=== PATIENT | female | born 1990 | race Caucasian/White ===

== ENCOUNTER → 2020-10-05 10:42 | Outpatient (BNVA) | payer OTHER, SELFPAY | PROVIDERS: Visit Provider Advanced Practice Midwife ==

== ENCOUNTER → 2020-10-07 15:09 | Outpatient (BNVA) | payer OTHER, SELFPAY | PROVIDERS: Visit Provider Advanced Practice Midwife | DX: Z30.46 Encounter for surveillance of implantable subdermal contraceptive (principal); Z30.011 Encounter for initial prescription of contraceptive pills | CPT/HCPCS: 11982; 81025 ==

== ENCOUNTER → 2020-12-30 12:10 | Outpatient (BNVA) | payer OTHER, SELFPAY | PROVIDERS: Visit Provider Advanced Practice Midwife ==

== ENCOUNTER 2021-02-24 15:39 | Emergency (ER) | payer OTHER, SELFPAY ==
[2021-02-24 16:33] VITALS: BP 129/76; PULSE 69; RESP 18; TEMP 37.1; O2SAT 99; BMI 24.3
[2021-02-24 17:06] LABS: Glucose Urine UA NEG (NEG); Leukocyte Esterase Urine NEG (NEG); Nitrite Urine NEG (NEG); Specific Gravity - Urine 1.025 (1.005-1.025); Urine Blood 3+ (NEG); Urine Ketones 5 MG/DL (NEG); Urine Protein TRACE MG/DL (NEG-TRACE)
[2021-02-24 17:07] LABS: UPreg QC Valid YES; Urine Pregnancy NEGATIVE (NEGATIVE)
[2021-02-24 17:08] LABS: Appearance Urine CLEAR; Color Urine YELLOW
[2021-02-24 17:44] LABS: Bacteria Urine TRACE /LPF; Mucus Urine 2+ /LPF; RBC Urine 30-49 /HPF (0); WBC Urine 0-2 /HPF (0-4)
[2021-02-24 18:29] LABS: MANUAL DIFF FLAG NO
[2021-02-24 18:49] LABS: Basophils Percent Auto 0.3 % (0-2); Eosinophils Absolute Auto 0.1 X10*3/uL (0.0-0.4); Hematocrit 41.9 % (37-47); Imm Gran Abs Auto 0.02 X10*3/uL (0.00-0.03); Imm Gran Pct Auto 0.3 % (0.0-0.4); Lymphocytes Absolute Auto 1.9 X10*3/uL (1.2-4.9); Lymphocytes Percent Auto 30.2 % (20-40); Mean Corpuscular HGB Conc 33.4 g/dl (31.0-35.0); Mean Corpuscular Hemoglobin 31.7 pg (27.0-33.0); Mean Platelet Volume 10.3 fL (9.4-12.3); Monocytes Absolute Auto 0.4 X10*3/uL (0.1-1.2); Neutrophils Absolute Auto 3.9 X10*3/uL (2.0-8.3); Neutrophils Percent Auto 62.2 % (45-73); Platelet Count 284 X10*3/uL (160-400); Red Blood Count 4.41 X10*6/uL (4.20-5.50); Red Cell Distribution Width 11.7 % (11.0-16.0); White Blood Count 6.3 X10*3/uL (4.8-10.8)
[2021-02-24 19:03] LABS: Alanine Aminotransferase 14 U/L (0-31); Albumin Level 4.7 g/dL (3.5-5.0); Alkaline Phosphatase 89 U/L (39-117); Anion Gap 14 (12-20); Aspartate Amino Transferase 18 U/L (5-31); Bilirubin Total 0.6 mg/dL (0.0-1.0); Blood Urea Nitrogen 11 mg/dL (9-16); Calcium 10.1 mg/dL (8.4-10.2); Carbon Dioxide 24 mmol/L (22-29); Chloride 105 mmol/L (96-108); Creatinine Clr Calc Pharmacy 102.5; Estimated Glomerular Filt Rate > 60; Glucose Random 90 mg/dL (60-115); Potassium 4.2 mmol/L (3.3-5.1); Sodium 139 mmol/L (135-145); Total Protein 7.9 g/dL (6.5-8.0)
[2021-02-24 19:11] LABS: HCG Quantitative < 2 mIU/mL
--- NOTE | 2021-02-24 19:45 | ED.FEMALEGU ---
HPI - Female Genitourinary General Chief complaint: Vaginal Bleeding Stated complaint: vag bleed - cramping Time Seen by Provider: 02/24/21 18:07 Source: patient Mode of arrival: ambulatory Limitations: no limitations History of Present Illness HPI Narrative: 30-year-old female who has had 1 in her life her daughter is 8 years old now otherwise she denies any chronic medical problems not currently taking any medication she presents ambulatory via triage with complaint of vaginal bleeding. States 2 days ago she had a test at home that was positive and she was late for her menstrual cycle and today she started having cramping in the lower abdomen/pelvic area consistent with her menstrual cycle and noted bleeding today. Bleeding was typical as her midcycle there was no large clots. There is no abdominal pain or pelvic pain. There is no vaginal discharge, dysuria, rash. She denies any concern for STI. The bleeding is described as again 2 pads a day for the past 1 day and consistent with missed cycle. She states that the bleeding actually improving and there was minimal to no pain which is actually less than her usual menstrual cycle. MD elicited complaint: suspected Onset (ago): day(s) Severity: mild Female Urogenital Radiation: Non-Radiating Relieving factors: none Associated symptoms: denies other symptoms Treatment prior to arrival: none Sexual activity: Yes Possible : unsure if Related Data : 1 Para: 1 Total number of abortions (spontaneous and elective): 0 Previous Rx's Medication Instructions Recorded metronidazole 0.75 % vaginal gel 1 appful VAGINAL BID 5 Days #70 g 10/05/20 vitamin with calcium 1 tab PO DAILY #30 tab 12/30/20 no.72-iron 27 mg-folic acid 1 mg tablet Allergies Allergy/AdvReac Type Severity Reaction Status Date / Time latex [LATEX] Allergy Unknown RASH Verified 02/24/21 16:33 Review of Systems Review of Systems: Constitutional: No Weight loss, No Fever, No Chills, No Night Sweats, No Fatigue, No Malaise ENT/Mouth: No Hearing loss, No Ear Pain, No Nasal Congestion, No Sinus Pain, No Hoarseness, No sore throat, No Rhinorrhea, No Swallowing Difficulty Eyes: No Eye Pain, No Swelling, No Redness, No Foreign Body, No Discharge, No Vision Changes Cardiovascular: No Chest Pain, No SOB, No Dyspnea on Exertion, No Orthopnea, No Edema, No Palpitations Respiratory: No Cough, No Sputum, No Wheezing, No Smoke Exposure, No Dyspnea Gastrointestinal: No Nausea, No Vomiting, No Diarrhea, No Constipation, No abdominal Pain, No Hematochezia, No Melena Genitourinary: As noted per HPI, No Dysuria, No Urinary Frequency, No Hematuria, No Urinary Incontinence, No Urgency, No Flank Pain, No Urinary Flow Changes, No Hesitancy Musculoskeletal: No joint pain, No Myalgias, No Joint Swelling Skin: No Skin Lesions, No rash Neuro: No Weakness, No Numbness, No Paresthesias, No Loss of Consciousness, No Dizziness, No Headache Psych: No Social Issues Heme/Lymph: No Bruising, No Bleeding,No Lymphadenopathy Endocrine: No Polyuria, No Polydipsia, No Temperature Intolerance Yes all other systems are reviewed and are negative [facility] Past Medical History : 1 Para: 1 Total number of abortions (spontaneous and elective): 0 Family History Family History Paternal Grandmother History of breast cancer Colon cancer Social History Social History Alcohol intake: current Alcohol intake frequency: a few times a month Advance Directives: No Advance Directives Information Provided: No Patient : Yes Physical Exam Vital Signs: Vital Signs: Last Vital Signs Temp 98.7 F 02/24/21 16:33 Pulse 69 02/24/21 16:33 Resp 18 02/24/21 16:33 BP 129/76 02/24/21 16:33 Pulse Ox 99 02/24/21 16:33 Body Mass Index 24.3 Reviewed Const: General: cooperative and healthy appearing; No acute distress or intoxicated appearing Nutritional Appearance: average body habitus Orientation/consciousness: patient oriented x3 HENMT: Head: Yes normal to inspection Ears: hearing grossly normal bilaterally Eyes: General: appearance normal, both eyes and all related structures Visual Crabtree: normal visual crabtree by confrontation Neck: Neck: Yes normal visual inspection, No positive Brudzinski's sign, No positive Kernig's sign and No tender Thyroid: Thyroid normal Chest: Chest palpation & inspection: normal inspection of the chest Resp: Effort & Inspection: normal respiratory effort Auscultation: clear to auscultation bilaterally Cardio: Jugular venous distension: no JVD Rhythm: regular rhythm Heart sounds: S1 normal heart sound present and S2 normal heart sound present GI: Inspection: Yes normal to inspection Palpation (GI): Soft to palpation, nontender and no guarding Percussion: Yes normal to percussion Auscultation: normal bowel sounds : General: Yes no CVA tenderness Back/Spine/Pelvis: Back: no CVA tenderness Skin: General skin exam: no rashes or lesions noted Neuro: General: patient oriented x3 Extrem: General: Yes normal to inspection Course Reevaluation(s) Reevaluation #1: Patient showed me pictures her home dipstick test. There is a line for negative and a test line on the right side but there is no line in the Plus caitlin to indicate a positive . I believe she misinterpreted this. Either way she had labs done including a CBC that was unremarkable, comprehensive metabolic profile that was stable, urine that was negative. Urine HCG that was also negative. She states she does not have any pain and the bleeding is consistent with her menstrual cycle in fact minimal at this time. She deferred on pelvic exam. I educated her on the findings and she will repeat her home tests and 1 week and follow up closely with her primary care doctor. She is Rh O-positive MDM - Female Genitourinary Lab Data Result diagrams: 02/24/21 18:22 02/24/21 18:22 Labs: Lab Results 02/24/21 02/24/21 02/24/21 Range/Units 16:57 16:57 18:22 WBC (4.8-10.8) X10*3/uL RBC (4.20-5.50) X10*6/uL Hgb (12.0-16.0) g/dl Hct (37-47) % MCV (80-98) fL MCH (27.0-33.0) pg MCHC (31.0-35.0) g/dl RDW (11.0-16.0) % Plt Count (160-400) X10*3/uL MPV (9.4-12.3) fL Immature Gran % (Auto) (0.0-0.4) % Neut % (Auto) (45-73) % Lymph % (Auto) (20-40) % [place] % (Auto) (2-11) % Eos % (Auto) (0-4) % Baso % (Auto) (0-2) % Lymph # (Auto) (1.2-4.9) X10*3/uL [place] # (Auto) (0.1-1.2) X10*3/uL Eos # (Auto) (0.0-0.4) X10*3/uL Baso # (Auto) (0.0-0.2) X10*3/uL Abs Immat Gran (auto) (0.00-0.03) X10*3/uL Absolute Neuts (auto) (2.0-8.3) X10*3/uL Absolute Nucleated RBC (0.0-0.012) X10*3/uL Nucleated RBC % (auto) (0.0-0.2) /100WBC Sodium (135-145) mmol/L Potassium (3.3-5.1) mmol/L Chloride (96-108) mmol/L Carbon Dioxide (22-29) mmol/L Anion Gap (12-20) BUN (9-16) mg/dL Creatinine (0.5-1.4) mg/dL Estim Creat Clear Calc Estimated GFR Random Glucose (60-115) mg/dL Calcium (8.4-10.2) mg/dL Total Bilirubin (0.0-1.0) mg/dL AST (5-31) U/L ALT (0-31) U/L Alkaline Phosphatase (39-117) U/L Total Protein (6.5-8.0) g/dL Albumin (3.5-5.0) g/dL Beta HCG, Quant < 2 mIU/mL Urine Color YELLOW Urine Appearance CLEAR Urine pH 6.0 (5.0-8.0) Ur Specific [place] 1.025 (1.005-1.025) Urine Protein TRACE (NEG-TRACE) MG/DL Urine Glucose (UA) NEG (NEG) MG/DL Urine Ketones 5 (NEG) MG/DL Urine Blood 3+ H (NEG) Urine Nitrite NEG (NEG) Ur Leukocyte Esterase NEG (NEG) Urine RBC 30-49 H (0) /HPF Urine WBC 0-2 (0-4) /HPF Ur Squamous Epith Cells NONE /LPF Urine Bacteria TRACE /LPF Urine Mucus 2+ /LPF Urine Test NEGATIVE (NEGATIVE) Blood Type 02/24/21 02/24/21 02/24/21 Range/Units 18:22 18:22 18:22 WBC 6.3 (4.8-10.8) X10*3/uL RBC 4.41 (4.20-5.50) X10*6/uL Hgb 14.0 (12.0-16.0) g/dl Hct 41.9 (37-47) % MCV 95.0 (80-98) fL MCH 31.7 (27.0-33.0) pg MCHC 33.4 (31.0-35.0) g/dl RDW 11.7 (11.0-16.0) % Plt Count 284 (160-400) X10*3/uL MPV 10.3 (9.4-12.3) fL Immature Gran % (Auto) 0.3 (0.0-0.4) % Neut % (Auto) 62.2 (45-73) % Lymph % (Auto) 30.2 (20-40) % [place]ades % (Auto) 6.0 (2-11) % Eos % (Auto) 1.0 (0-4) % Baso % (Auto) 0.3 (0-2) % Lymph # (Auto) 1.9 (1.2-4.9) X10*3/uL [place] # (Auto) 0.4 (0.1-1.2) X10*3/uL Eos # (Auto) 0.1 (0.0-0.4) X10*3/uL Baso # (Auto) 0.0 (0.0-0.2) X10*3/uL Abs Immat Gran (auto) 0.02 (0.00-0.03) X10*3/uL Absolute Neuts (auto) 3.9 (2.0-8.3) X10*3/uL Absolute Nucleated RBC 0.000 (0.0-0.012) X10*3/uL Nucleated RBC % (auto) 0.0 (0.0-0.2) /100WBC Sodium 139 (135-145) mmol/L Potassium 4.2 (3.3-5.1) mmol/L Chloride 105 (96-108) mmol/L Carbon Dioxide 24 (22-29) mmol/L Anion Gap 14 (12-20) BUN 11 (9-16) mg/dL Creatinine 0.78 (0.5-1.4) mg/dL Estim Creat Clear Calc 102.5 Estimated GFR > 60 Random Glucose 90 (60-115) mg/dL Calcium 10.1 (8.4-10.2) mg/dL Total Bilirubin 0.6 (0.0-1.0) mg/dL AST 18 (5-31) U/L ALT 14 (0-31) U/L Alkaline Phosphatase 89 (39-117) U/L Total Protein 7.9 (6.5-8.0) g/dL Albumin 4.7 (3.5-5.0) g/dL Beta HCG, Quant mIU/mL Urine Color Urine Appearance Urine pH (5.0-8.0) Ur Specific [place] (1.005-1.025) Urine Protein (NEG-TRACE) MG/DL Urine Glucose (UA) (NEG) MG/DL Urine Ketones (NEG) MG/DL Urine Blood (NEG) Urine Nitrite (NEG) Ur Leukocyte Esterase (NEG) Urine RBC (0) /HPF Urine WBC (0-4) /HPF Ur Squamous Epith Cells /LPF Urine Bacteria /LPF Urine Mucus /LPF Urine Test (NEGATIVE) Blood Type O Positive Discharge Plan Discharge Clinical Impression: Dysfunctional uterine bleeding Patient Disposition: Home, Self-Care Instructions: Dysfunctional Uterine Bleeding (ED) Additional Instructions: Please repeat home test in 1 week Your urine test was negative Your blood test was also negative Please follow-up closely with her primary care doctor Return if any concerns or worsening symptoms Thank you Prescriptions: No Action metronidazole [Metrogel Vaginal] 0.75 % gel 1 appful vaginal BID 5 Days Qty: 70 RF: 0 Vitamin Plus Low Iron 27 mg iron- 1 mg tablet 1 tab PO DAILY Qty: 30 RF: 11 Referrals: Martinez Cole MD [Primary Care Provider] - 1 week
== END 2021-02-24 20:07 | disposition home or self-care (01) ==
PROVIDERS: Nurse Practitioner Primary Care; Emergency Provider Emergency Medicine; PCP Internal Medicine
DX: N93.8 Other specified abnormal uterine and vaginal bleeding (principal)
CPT/HCPCS: 36415; 80053; 81001; 81025; 84702; 85025; 86900; 86901; 99283; 99284

== ENCOUNTER 2021-03-08 14:34 | Outpatient (REF) | payer OTHER, SELFPAY ==
[2021-03-09 08:39] LABS: Syphilis Screen Nonreactive (Nonreactive)
[2021-03-09 12:33] LABS: CT PCR NOT DETECTED (Not Detect.); NG PCR NOT DETECTED (Not Detect.)
[2021-03-09 13:11] LABS: HIV AB/AG Nonreactive (Nonreactive); HIV Num 1 0.07 S/CO (0.00-0.99)
[2021-03-10 08:50] LABS: BV Int Neg Control Negative (Negative); BV Int Pos Control Positive (Positive)
[2021-03-10 11:39] LABS: HBsAGNum1 0.14 S/CO (0.00-0.99); Hepatitis B Surface Antigen Negative (Negative)
[2021-03-14 23:42] LABS: HPV 16 RNA NOT DETECTED (NOT DETECTED); HPV mRNA E6/E7 rflx Detected (Not Detected)
== END 2021-03-08 14:35 | disposition home or self-care (01) ==
LOC: HO.LAB 14:34
PROVIDERS: PCP Internal Medicine; Visit Provider Obstetrics & Gynecology
DX: Z01.419 Encounter for gynecological examination (general) (routine) without abnormal findings (principal); Z11.51 Encounter for screening for human papillomavirus (HPV); Z11.3 Encounter for screening for infections with a predominantly sexual mode of transmission; Z11.4 Encounter for screening for human immunodeficiency virus [HIV]; Z01.84 Encounter for antibody response examination
CPT/HCPCS: 36415; 86780; 87340; 87389; 87480; 87491; 87510; 87591; 87624; 87625; 87660; 88142

== ENCOUNTER 2021-04-04 08:49 | Outpatient (REF) | payer OTHER, SELFPAY | END 2021-04-04 08:50 | disposition home or self-care (01) | LOC: HO.LAB 08:49 | PROVIDERS: PCP Internal Medicine; Visit Provider Obstetrics & Gynecology | DX: R87.612 Low grade squamous intraepithelial lesion on cytologic smear of cervix (LGSIL) (principal) | CPT/HCPCS: 57454; 88305; 88341; 88342; 88360 ==

== ENCOUNTER 2021-04-07 14:46 | Outpatient (REF) | payer OTHER, SELFPAY ==
[2021-04-07 15:29] LABS: Influenza A PCR NEGATIVE (Negative); Influenza B PCR NEGATIVE (Negative); Resp Syncy Virus RNA Qual PCR NEGATIVE (Negative); SARS COV2 PCR INHOUSE NEGATIVE (Negative)
== END 2021-04-07 14:47 | disposition home or self-care (01) ==
LOC: HO.LNP 14:46
PROVIDERS: Visit Provider Internal Medicine
DX: J02.9 Acute pharyngitis, unspecified (principal); Z20.822 Contact with and (suspected) exposure to COVID-19
CPT/HCPCS: 0241U

== ENCOUNTER → 2021-04-19 11:33 | Outpatient (BNVA) | payer OTHER, SELFPAY | PROVIDERS: PCP Internal Medicine; Visit Provider Obstetrics & Gynecology ==

== ENCOUNTER 2021-06-20 18:53 | Emergency (ER) | payer OTHER, SELFPAY ==
[2021-06-20 19:03] VITALS: BP 128/79; PULSE 73; RESP 18; TEMP 36.6; O2SAT 98; BMI 19.3
[2021-06-20 19:13] VITALS: BP 140/90; PULSE 109; O2SAT 98
[2021-06-20] MEDS: Ibuprofen 600 MG TABLET PO (20:10)
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
[2021-06-20 20:22] LABS: Appearance Urine CLEAR; Color Urine YELLOW; Glucose Urine UA NEG (NEG); Leukocyte Esterase Urine NEG (NEG); Nitrite Urine NEG (NEG); UACC Culture Trigger NO; UPreg QC Valid YES; Urine Blood 3+ (NEG); Urine Ketones NEG (NEG); Urine Pregnancy NEGATIVE (NEGATIVE); Urine Protein NEG (NEG-TRACE)
[2021-06-20 20:31] LABS: Bacteria Urine TRACE /LPF; RBC Urine TNTC /HPF (0); WBC Urine 0-2 /HPF (0-4)
== END 2021-06-20 21:26 | disposition home or self-care (01) ==
PROVIDERS: Emergency Provider Emergency Medicine; PCP Internal Medicine
DX: S40.012A Contusion of left shoulder, initial encounter (principal); V43.52XA Car driver injured in collision with other type car in traffic accident, initial encounter; Y93.9 Activity, unspecified; Y92.410 Unspecified street and highway as the place of occurrence of the external cause; Y99.9 Unspecified external cause status; Z79.899 Other long term (current) drug therapy
CPT/HCPCS: 81001; 81025; 99283; 99284

== ENCOUNTER 2021-07-20 14:21 | Outpatient (REF) | payer OTHER, SELFPAY ==
[2021-07-20 15:37] LABS: Influenza A PCR NEGATIVE (Negative); Influenza B PCR NEGATIVE (Negative); Resp Syncy Virus RNA Qual PCR NEGATIVE (Negative); SARS COV2 PCR INHOUSE NEGATIVE (Negative)
== END 2021-07-20 14:22 | disposition home or self-care (01) ==
LOC: HO.LNP 14:21
PROVIDERS: Visit Provider Internal Medicine
DX: Z20.822 Contact with and (suspected) exposure to COVID-19 (principal); J02.9 Acute pharyngitis, unspecified; R50.9 Fever, unspecified
CPT/HCPCS: 0241U

== ENCOUNTER → 2021-11-11 14:59 | Outpatient (BNVA) | payer OTHER, SELFPAY | PROVIDERS: PCP Internal Medicine; Visit Provider Advanced Practice Midwife ==

== ENCOUNTER 2022-11-29 10:33 | Emergency (ER) | payer OTHER, SELFPAY ==
--- NOTE | ~2022-11-29 | CT_ITS ---
EXAMINATION: CT HEAD WITHOUT CONTRAST CLINICAL INFORMATION: Left-sided headache COMPARISON: None available. TECHNIQUE: Contiguous axial imaging was performed from the skull base to vertex without intravenous administration of contrast. Additional 2-D coronal and sagittal reformatted images are generated on the CT workstation and uploaded to PACS. This CT examination was performed using dose optimization techniques as appropriate, variously including the following: *Automated exposure control *Adjustment of mA and/or kV according to patient size (this includes techniques or standardized protocols for targeted exams where dose is matched to indication/reason for exam; i.e. extremities or head) *Use of iterative reconstruction technique DLP: 661 mGy-cm FINDINGS: There is no intracranial hemorrhage, hematoma, or extra-axial fluid collection. The ventricles are normal in size. There is no hydrocephalus, edema, or mass effect. The garcia-white matter differentiation appears well preserved . There is no visible acute territorial infarct or mass lesion. The calvarium appears intact. There is no pneumocephalus or orbital emphysema. The visualized sinuses and middle ears and mastoid air cells show no significant mucosal thickening. There are no air-fluid levels. CT/CT head/brain wo IV con IMPRESSION: No acute intracranial abnormality.
[2022-11-29 10:59] VITALS: BP 155/96; PULSE 70; RESP 16; TEMP 36.5; O2SAT 100; BMI 25.0
--- NOTE | 2022-11-29 11:00 | ED.HA ---
HPI - Headache General Chief Complaint: Headache <RIMA Acevedo - Last Filed: 11/29/22 11:04> Stated Complaint: L side headache <RIMA Acevedo Last Filed: 11/29/22 11:04> Time Seen by Provider: 11/29/22 11:46 <RIMA Acevedo Last Filed: 11/29/22 11:04> Source: patient <RIMA Church Last Filed: 11/29/22 16:55> Mode of arrival: ambulatory <RIMA Church Last Filed: 11/29/22 16:55> Limitations: no limitations <RIMA Church Last Filed: 11/29/22 16:55> History of Present Illness HPI Narrative: Patient is a 32 year old assigned female at with a history of migraine presenting to the emergency department today with a severe left sided headache. Patient states that she woke up around 0130 with a left sided temporal headache which feels like her normal migraine for which she took 2 Excedrin and went back to sleep. Patient woke up this morning and started to have worsening symptoms with left sided facial pain, pain behind the left eye, pain in her gums, feeling like she is floating upon ambulation, and mild SOB which has now resolved. Patient denies any current dizziness, lightheadedness, abdominal pain, nausea, vomiting, fever, chills, blurry vision, double vision, loss of vision, chest pain, back pain, night sweats, pain with urination, increased urinary frequency, increased urinary urgency, blood in her urine or stool, syncope or a near syncopal episode, recent trauma or falls, bowel incontinence, bladder incontinence, bowel retention, bladder retention, or any other complaints at this time. <RIMA Church Last Filed: 11/29/22 16:55> MD elicited complaint: headache and migraine <RIMA Church Last Filed: 11/29/22 16:55> Pertinent past history: migraines <RIMA Church Last Filed: 11/29/22 16:55> Onset (ago): hour(s) <RIMA Church Last Filed: 11/29/22 16:55> Time: 01:30 <RIMA Church - Last Filed: 11/29/22 16:55> Onset description: suddenly <IRMA Church - Last Filed: 11/29/22 16:55> Location: left <RIMA Church - Last Filed: 11/29/22 16:55> Severity: moderate <RIMA Church - Last Filed: 11/29/22 16:55> Quality & Timing: sharp <RIMA Church - Last Filed: 11/29/22 16:55> Associated symptoms: nausea <RIMA Church - Last Filed: 11/29/22 16:55> Treatments prior to arrival: other (Excedrin) <RIMA Church - Last Filed: 11/29/22 16:55> Related Data Home Medications: Previous Rx's Medication Instructions Recorded desogestrel-e.estradiol 0.15 1 tab PO DAILY #28 tabs 11/11/21 mg-0.02 mg(21)/e.estrad 0.01 mg(5) tablet (Kariva (28)) <RIMA Acevedo - Last Filed: 11/29/22 11:04> Allergies/Adverse Reactions: Allergies Allergy/AdvReac Type Severity Reaction Status Date / Time latex [LATEX] Allergy Unknown RASH Verified 11/11/21 15:00 <RIMA Acevedo - Last Filed: 11/29/22 11:04> Review of Systems Review of Systems: Yes all other systems are reviewed and are negative <RIMA Church - Last Filed: 11/29/22 16:55> Constitutional: Constitutional: Reports no additional constitutional complaints and Reports headache(s) <RIMA Church - Last Filed: 11/29/22 16:55> Eyes: Eyes: Reports no additional eye complaints and Denies loss of vision <RIMA Church - Last Filed: 11/29/22 16:55> ENT: Reports system reviewed and no additional complaints, except as documented, Reports Normal hearing present, Denies dizziness and Reports headache(s) <RIMA Church - Last Filed: 11/29/22 16:55> Cardiovascular: Cardiovascular: Reports no additional cardiovascular complaints and Denies syncope <RIMA Church - Last Filed: 11/29/22 16:55> Respiratory: Respiratory: Reports as per HPI <RIMA Church - Last Filed: 11/29/22 16:55> Gastrointestinal: Gastrointestinal: Reports no additional gastrointestinal complaints and Reports nausea <RIMA Church - Last Filed: 11/29/22 16:55> Genitourinary: Genitourinary: Reports no additional female genitourinary complaints <RIMA Church - Last Filed: 11/29/22 16:55> Musculoskeletal: Musculoskeletal: Reports no additional musculoskeletal complaints, Denies abnormal gait and Denies numbness <RIMA Church - Last Filed: 11/29/22 16:55> Neurologic: Reports as per HPI, Reports Normal hearing present, Denies Neuro-related abnormal movements, Denies Abnormal speech present, Denies abnormal gait, Denies dizziness, Denies syncope, Reports headache(s), Denies loss of vision and Denies numbness <RIMA Church - Last Filed: 11/29/22 16:55> PMF Past Medical History Attestation statement: The following information was validated with the patient. <RIMA Church - Last Filed: 11/29/22 16:55> Source: old records reviewed and nursing notes reviewed <RIMA Church - Last Filed: 11/29/22 16:55> Medical History: Medical History Well woman exam with routine gynecological exam <RIMA Acevedo - Last Filed: 11/29/22 11:04> Family History Family History: Family History Paternal Grandmother History of breast cancer Colon cancer <RIMA Acevedo - Last Filed: 11/29/22 11:04> Social History Social History: Social History Alcohol intake: current Alcohol intake frequency: a few times a month Patient Tobacco Use Status: Never used Tobacco Advance Directives: No Advance Directives Information Provided: No <RIMA Acevedo - Last Filed: 11/29/22 11:04> Physical Exam Vital Signs: Vital Signs: Last Vital Signs Temp 98.5 F 11/29/22 13:29 Pulse 62 11/29/22 13:29 Resp 18 11/29/22 13:29 BP 116/64 11/29/22 13:29 Pulse Ox 98 11/29/22 13:29 O2 Del Method Room Air 11/29/22 13:29 BMI result Body Mass Index 25.0 <RIMA Acevedo - Last Filed: 11/29/22 11:04> Vital Signs: Last Vital Signs Temp 98.5 F 11/29/22 13:29 Pulse 62 11/29/22 13:29 Resp 18 11/29/22 13:29 BP 116/64 11/29/22 13:29 Pulse Ox 98 11/29/22 13:29 O2 Del Method Room Air 11/29/22 13:29 BMI result Body Mass Index 25.0 <RIMA Church - Last Filed: 11/29/22 16:55> Const: General: cooperative, healthy appearing and no acute distress <RIMA Church - Last Filed: 11/29/22 16:55> Nutritional Appearance: average body habitus <RIMA Church - Last Filed: 11/29/22 16:55> Orientation/consciousness: oriented to person, oriented to place, oriented to time and patient oriented x3 <RIMA Church - Last Filed: 11/29/22 16:55> Limitations: no limitations <RIMA Church - Last Filed: 11/29/22 16:55> HEENT: Head: Yes normal to inspection <RIMA Church - Last Filed: 11/29/22 16:55> Ears: hearing grossly normal bilaterally <RIMA Church - Last Filed: 11/29/22 16:55> General nose exam: Normal external nose present <RIMA Church - Last Filed: 11/29/22 16:55> Face and sinus: Yes normal facial exam <RIMA Church - Last Filed: 11/29/22 16:55> Mouth: Normal oral and palatal mucosa present, no drooling and no muffled voice <RIMA Church - Last Filed: 11/29/22 16:55> Eyes: General: appearance normal, both eyes and all related structures <Nina Gibson [place] - Last Filed: 11/29/22 16:55> Periorbital: periorbital findings normal <Nina GibsonRIMA - Last Filed: 11/29/22 16:55> Eyelids: Yes eyelids normal <Nina Gibson [place] - Last Filed: 11/29/22 16:55> Conjunctivae: conjunctivae normal <Nina Quintanashun [place] - Last Filed: 11/29/22 16:55> Pupils: Equal, round and reactive pupils present <Nina [place]an[place]un [place] - Last Filed: 11/29/22 16:55> EOM: EOMs intact bilaterally <Nina [place]an[place]un [place] - Last Filed: 11/29/22 16:55> Neck: Neck: Yes normal visual inspection and Yes full ROM <Nina [place]an[place]un [place] - Last Filed: 11/29/22 16:55> Chest: Chest palpation & inspection: normal inspection of the chest <Ninatino QuintanaRIMA hoffmann - Last Filed: 11/29/22 16:55> Resp: Effort & Inspection: normal respiratory effort <Nina Quintanashun [place] - Last Filed: 11/29/22 16:55> Auscultation: clear to auscultation bilaterally <Nina [place]an[place]un [place] - Last Filed: 11/29/22 16:55> Cardio: Rate: regular rate <Nina [place]an[place]un [place] - Last Filed: 11/29/22 16:55> Rhythm: regular rhythm (Accelerated beats upon inhalation) <Nina Quintan[place]un [place] - Last Filed: 11/29/22 16:55> GI: Inspection: Yes normal to inspection <Nina [place]an[place]un [place] - Last Filed: 11/29/22 16:55> Neuro: General: oriented to person, oriented to place, oriented to time and patient oriented x3 <Nina Quintan[place]un [place] - Last Filed: 11/29/22 16:55> Cranial nerves: Yes Equal, round and reactive pupils present and Yes Normal hearing present <Nina QuintanaRIMA hoffmann - Last Filed: 11/29/22 16:55> Cognition (Neuro): normal cognition <Nina RIMA Gibson - Last Filed: 11/29/22 16:55> Speech: No Abnormal speech present <Nina RIMA Gibson - Last Filed: 11/29/22 16:55> Motor exam (neuro): 5/5 motor strength present throughout <Ninatino QuintanaRIMA hoffmann - Last Filed: 11/29/22 16:55> Sensory Exam: Normal double simultaneous stimulation for sensation <Ninatino QuintanaRIMA hoffmann - Last Filed: 11/29/22 16:55> Coordination: [id number] test normal <RIMA Church - Last Filed: 11/29/22 16:55> Extrem: General: Yes normal to inspection, Yes full ROM and Yes capillary refill normal <Ninatino QuintanaRIMA hoffmann - Last Filed: 11/29/22 16:55> Psych: Appearance: grossly normal <RIMA Church - Last Filed: 11/29/22 16:55> Mental Status: mental status grossly normal <RIMA Church - Last Filed: 11/29/22 16:55> Affect: normal affect <RIMA Church - Last Filed: 11/29/22 16:55> Attitude: cooperative <RIMA Church - Last Filed: 11/29/22 16:55> Thought process: Normal thought process present <RIMA Church - Last Filed: 11/29/22 16:55> Thought content: Normal thought content present <RIMA Church - Last Filed: 11/29/22 16:55> Insight: Good insight present (Psych) <RIMA Church - Last Filed: 11/29/22 16:55> Course Course Course Narrative: RME - 32 y/o female with history of migraines presents to the ER for severe left sided headache and dizziness that started at 1:30am. Worse and different than her usual headaches. No relief with Excedrin. Would like a CT scan of her head. BP 150s in triage, she states her usual BP is in the 80s. Neuros grossly intact, normal speech. Tearful. Labs, CT head orderd along with IV medications for migraine. <RIMA Acevedo - Last Filed: 11/29/22 11:04> Medications Administered Discontinued Medications Generic Name Dose Route Start Last Admin Trade Name Freq PRN Reason Stop Dose Admin Diphenhydramine HCl 50 mg 11/29/22 11:03 11/29/22 11:23 Diphenhydramine Hcl 50 Mg/Ml Vial IVPUSH 11/29/22 11:04 50 mg ONCE ONE Administration Sodium Chloride 1,000 mls @ 999 mls/hr 11/29/22 11:30 11/29/22 11:28 Ns IV 11/29/22 12:30 Not Given .Q1H1M BOBBI Sodium Chloride 1,000 mls @ 999 mls/hr 11/29/22 11:30 11/29/22 13:02 Ns IVCONT 11/29/22 12:30 Infused .Q1H1M BOBBI Infusion Ketorolac Tromethamine 30 mg 11/29/22 11:03 11/29/22 11:23 Ketorolac Tromethamine 30 Mg/Ml Vial IVPUSH 11/29/22 11:04 30 mg ONCE ONE Administration Metoclopramide HCl 10 mg 11/29/22 11:03 11/29/22 11:23 Metoclopramide Hcl 10 Mg/2 Ml Vial IVPUSH 11/29/22 11:04 10 mg ONCE ONE Administration <RIMA Acevedo - Last Filed: 11/29/22 11:04> Medications Administered Discontinued Medications Generic Name Dose Route Start Last Admin Trade Name Freq PRN Reason Stop Dose Admin Diphenhydramine HCl 50 mg 11/29/22 11:03 11/29/22 11:23 Diphenhydramine Hcl 50 Mg/Ml Vial IVPUSH 11/29/22 11:04 50 mg ONCE ONE Administration Sodium Chloride 1,000 mls @ 999 mls/hr 11/29/22 11:30 11/29/22 11:28 Ns IV 11/29/22 12:30 Not Given .Q1H1M BOBBI Sodium Chloride 1,000 mls @ 999 mls/hr 11/29/22 11:30 11/29/22 13:02 Ns IVCONT 11/29/22 12:30 Infused .Q1H1M BOBBI Infusion Ketorolac Tromethamine 30 mg 11/29/22 11:03 11/29/22 11:23 Ketorolac Tromethamine 30 Mg/Ml Vial IVPUSH 11/29/22 11:04 30 mg ONCE ONE Administration Metoclopramide HCl 10 mg 11/29/22 11:03 11/29/22 11:23 Metoclopramide Hcl 10 Mg/2 Ml Vial IVPUSH 11/29/22 11:04 10 mg ONCE ONE Administration <RIMA Church - Last Filed: 11/29/22 16:55> Medical Decision Making Medical Decision Making MDM Narrative: Patient is a 32 year old assigned female at with a history of migraines presenting to the emergency department today with a left sided headache. Patient's physical exam was unremarkable. Patient's blood work was unremarkable. I explained my physical exam findings as well as all test results to the patient. I answered all questions asked by the patient. Patient received IV Fluid, Benadryl, and toradol which she stated helped her symptoms significantly. I stressed the importance of the patient taking her medication as prescribed. I stressed the importance of the patient following up with her primary care provider and a neurologist. I stressed the importance of the patient returning to the emergency department immediately if her symptoms were to worsen or if she were to develop any dizziness, shortness of breath, difficulty breathing, chest pain, blurry vision, loss of vision, nausea, vomiting, abdominal pain, fever, chills, back pain, or any other complaints. Patient verbalized agreement and understanding with this treatment plan and discharge. <RIMA Church - Last Filed: 11/29/22 16:55> Differential Diagnosis Differential Diagnoses: The differential diagnosis associated with the presentation includes <RIMA Church - Last Filed: 11/29/22 16:55> migraine <RIMA Church - Last Filed: 11/29/22 16:55> Lab Data MDM Lab Attestation statement: I reviewed the patient's lab results. <RIMA Church - Last Filed: 11/29/22 16:55> Result Diagrams: 11/29/22 11:22 11/29/22 11:22 <RIMA Acevedo - Last Filed: 11/29/22 11:04> Labs: Lab Results 11/29/22 11/29/22 Range/Units 11:22 11:22 WBC 4.4 L (4.8-10.8) X10*3/uL RBC 4.31 (4.20-5.50) X10*6/uL Hgb 12.1 (12.0-16.0) g/dl Hct 38.6 (37.0-47.0) % MCV 89.6 (80.0-98.0) fL MCH 28.1 (27.0-33.0) pg MCHC 31.3 (31.0-35.0) g/dl RDW 13.1 (11.0-16.0) % Plt Count 325 (160-400) X10*3/uL MPV 10.4 (9.4-12.3) fL Immature Gran % (Auto) 0.2 (0.0-0.4) % Neut % (Auto) 57.1 (45-73) % Lymph % (Auto) 33.1 (20-40) % [place] % (Auto) 8.4 (2-11) % Eos % (Auto) 0.5 (0-4) % Baso % (Auto) 0.7 (0-2) % Lymph # (Auto) 1.5 (1.2-4.9) X10*3/uL [place] # (Auto) 0.4 (0.1-1.2) X10*3/uL Eos # (Auto) 0.0 (0.0-0.4) X10*3/uL Baso # (Auto) 0.0 (0.0-0.2) X10*3/uL Abs Immat Gran (auto) 0.01 (0.00-0.03) X10*3/uL Absolute Neuts (auto) 2.5 (2.0-8.3) x10*3/uL Absolute Nucleated RBC 0.000 (0.0-0.012) X10*3/uL Nucleated RBC % (auto) 0.0 (0.0-0.2) /100WBC Sodium 139 (135-145) mmol/L Potassium 4.3 (3.3-5.1) mmol/L Chloride 105 (96-108) mmol/L Carbon Dioxide 26 (22-29) mmol/L Anion Gap 12 (12-20) BUN 9 (9-16) mg/dL Creatinine 0.81 (0.5-1.4) mg/dL Estim Creat Clear Calc 96.9 Estimated GFR > 60 Random Glucose 91 (60-115) mg/dL Calcium 9.7 (8.4-10.2) mg/dL Magnesium 2.0 (1.6-2.6) mg/dL Total Bilirubin 0.7 (0.0-1.0) mg/dL Direct Bilirubin 0.2 (0.0-0.5) mg/dL AST 29 (5-31) U/L ALT 31 (0-31) U/L Alkaline Phosphatase 110 (39-117) U/L Total Protein 7.4 (6.5-8.0) g/dL Albumin 4.5 (3.5-5.0) g/dL <RIMA Acevedo - Last Filed: 11/29/22 11:04> Lab Results 11/29/22 11/29/22 Range/Units 11:22 11:22 WBC 4.4 L (4.8-10.8) X10*3/uL RBC 4.31 (4.20-5.50) X10*6/uL Hgb 12.1 (12.0-16.0) g/dl Hct 38.6 (37.0-47.0) % MCV 89.6 (80.0-98.0) fL MCH 28.1 (27.0-33.0) pg MCHC 31.3 (31.0-35.0) g/dl RDW 13.1 (11.0-16.0) % Plt Count 325 (160-400) X10*3/uL MPV 10.4 (9.4-12.3) fL Immature Gran % (Auto) 0.2 (0.0-0.4) % Neut % (Auto) 57.1 (45-73) % Lymph % (Auto) 33.1 (20-40) % [place] % (Auto) 8.4 (2-11) % Eos % (Auto) 0.5 (0-4) % Baso % (Auto) 0.7 (0-2) % Lymph # (Auto) 1.5 (1.2-4.9) X10*3/uL [place] # (Auto) 0.4 (0.1-1.2) X10*3/uL Eos # (Auto) 0.0 (0.0-0.4) X10*3/uL Baso # (Auto) 0.0 (0.0-0.2) X10*3/uL Abs Immat Gran (auto) 0.01 (0.00-0.03) X10*3/uL Absolute Neuts (auto) 2.5 (2.0-8.3) x10*3/uL Absolute Nucleated RBC 0.000 (0.0-0.012) X10*3/uL Nucleated RBC % (auto) 0.0 (0.0-0.2) /100WBC Sodium 139 (135-145) mmol/L Potassium 4.3 (3.3-5.1) mmol/L Chloride 105 (96-108) mmol/L Carbon Dioxide 26 (22-29) mmol/L Anion Gap 12 (12-20) BUN 9 (9-16) mg/dL Creatinine 0.81 (0.5-1.4) mg/dL Estim Creat Clear Calc 96.9 Estimated GFR > 60 Random Glucose 91 (60-115) mg/dL Calcium 9.7 (8.4-10.2) mg/dL Magnesium 2.0 (1.6-2.6) mg/dL Total Bilirubin 0.7 (0.0-1.0) mg/dL Direct Bilirubin 0.2 (0.0-0.5) mg/dL AST 29 (5-31) U/L ALT 31 (0-31) U/L Alkaline Phosphatase 110 (39-117) U/L Total Protein 7.4 (6.5-8.0) g/dL Albumin 4.5 (3.5-5.0) g/dL <RIMA Church - Last Filed: 11/29/22 16:55> Independent Interpretation I performed an independent interpretation of an: CT Scan <RIMA Church - Last Filed: 11/29/22 16:55> Interpretation: My interpretation is in agreement with the radiologist's impression of this imaging study. EXAMINATION: CT HEAD WITHOUT CONTRAST CLINICAL INFORMATION: Left-sided headache? COMPARISON: None available.? TECHNIQUE: Contiguous axial imaging was performed from the skull base to vertex without intravenous administration of contrast.? Additional 2-D coronal and sagittal reformatted images are generated on the CT workstation and uploaded to PACS. This CT examination was performed using dose optimization techniques as appropriate, variously including the following: *Automated exposure control *Adjustment of mA and/or kV according to patient size (this includes techniques or standardized protocols for targeted exams where dose is matched to indication/reason for exam; i.e. extremities or head) *Use of iterative reconstruction technique DLP: 661 mGy-cm FINDINGS: There is no intracranial hemorrhage, hematoma, or extra-axial fluid collection.? The ventricles are normal in size. There is no hydrocephalus, edema, or mass effect.? The garcia-white matter differentiation appears well preserved . There is no visible acute territorial infarct or mass lesion. The calvarium appears intact. There is no pneumocephalus or orbital emphysema.? The visualized sinuses and middle ears and mastoid air cells show no significant mucosal thickening. There are no air-fluid levels. CT/CT head/brain wo IV con IMPRESSION: No acute intracranial abnormality. Dictated By: Zeus Bracnh MD Signed By: Electronically signed by Zeus Branch MD 11/29/22 1222 <RIMA Church - Last Filed: 11/29/22 16:55> Discharge Plan Discharge Clinical Impression: Migraine <RIMA Acevedo - Last Filed: 11/29/22 11:04> Patient Disposition: Home, Self-Care <RIMA Acevedo Last Filed: 11/29/22 11:04> Instructions: Migraine Headache (ED) <RIMA Acevedo Last Filed: 11/29/22 11:04> Additional Instructions: Follow up with your primary care provider and a neurologist. Return to the emergency department immediately if your symptoms worsen or if you develop any dizziness, shortness of breath, difficulty breathing, chest pain, blurry vision, loss of vision, nausea, vomiting, abdominal pain, fever, chills, back pain, or any other complaints. <RIMA Acevedo Last Filed: 11/29/22 11:04> Prescriptions: No Action desog-e.estradiol/e.estradiol [Kariva (28)] 0.15-0.02 mgx21 /0.01 mg x 5 tablet 1 tab PO DAILY Qty: 28 4RF <RIMA Acevedo - Last Filed: 11/29/22 11:04> Referrals: [facility] [place] [facility] [Provider Group] (Call to establish and follow up with a neurologist.) Martinez Cole MD [Primary Care Provider] - <RIMA Acevedo - Last Filed: 11/29/22 11:04> Stand Alone Forms: Work/School Release <RIMA Acevedo - Last Filed: 11/29/22 11:04> Interventions: ED Discharge Assessment Last Done: 11/29/22 13:30 <RIMA Acevedo - Last Filed: 11/29/22 11:04> Discharge Date/Time: 11/29/22 13:36 <RIMA Acevedo - Last Filed: 11/29/22 11:04> Print Language: Sudanese <RIMA Acevedo - Last Filed: 11/29/22 11:04>
--- NOTE | 2022-11-29 11:12 | PC.NURSE ---
Patient with complaint of headache keeps clearing throat says it feels like she is choking managing secretion no stridor noted denies any recent ingestion of unknown allergens or exposure to any environmental allergens. AOx 4 ambulatory independently no distress noted patient to CT will CTM
[2022-11-29] MEDS: Ketorolac Tromethamine 30 MG/ML VIAL IVPUSH (11:23)
[2022-11-29] MEDS: diphenhydrAMINE HCL 50 MG/ML VIAL IVPUSH (11:23)
[2022-11-29] MEDS: Metoclopramide HCl 10 MG/2 ML VIAL IVPUSH (11:23)
[2022-11-29] MEDS: 0.9 % Sodium Chloride 1,000 ML 999 ML IVCONT (11:29)
[2022-11-29 11:37] LABS: MANUAL DIFF FLAG NO
[2022-11-29 11:41] LABS: Basophils Percent Auto 0.7 % (0-2); Eosinophils Percent Auto 0.5 % (0-4); Hematocrit 38.6 % (37.0-47.0); Hemoglobin 12.1 g/dl (12.0-16.0); Imm Gran Abs Auto 0.01 X10*3/uL (0.00-0.03); Imm Gran Pct Auto 0.2 % (0.0-0.4); Lymphocytes Absolute Auto 1.5 X10*3/uL (1.2-4.9); Lymphocytes Percent Auto 33.1 % (20-40); Mean Corpuscular HGB Conc 31.3 g/dl (31.0-35.0); Mean Corpuscular Hemoglobin 28.1 pg (27.0-33.0); Mean Corpuscular Volume 89.6 fL (80.0-98.0); Mean Platelet Volume 10.4 fL (9.4-12.3); Monocytes Absolute Auto 0.4 X10*3/uL (0.1-1.2); Monocytes Percent Auto 8.4 % (2-11); Neutrophils Absolute Auto 2.5 x10*3/uL (2.0-8.3); Neutrophils Percent Auto 57.1 % (45-73); Platelet Count 325 X10*3/uL (160-400); Red Blood Count 4.31 X10*6/uL (4.20-5.50); Red Cell Distribution Width 13.1 % (11.0-16.0); White Blood Count 4.4 X10*3/uL (4.8-10.8)
--- NOTE | 2022-11-29 11:41 | PC.NURSE ---
Patient extremely anxious tearful mother at bedside tolerating IVF will CTM
[2022-11-29 11:54] LABS: Alanine Aminotransferase 31 U/L (0-31); Albumin Level 4.5 g/dL (3.5-5.0); Alkaline Phosphatase 110 U/L (39-117); Anion Gap 12 (12-20); Aspartate Amino Transferase 29 U/L (5-31); Bilirubin Direct 0.2 mg/dL (0.0-0.5); Bilirubin Total 0.7 mg/dL (0.0-1.0); Blood Urea Nitrogen 9 mg/dL (9-16); Calcium 9.7 mg/dL (8.4-10.2); Carbon Dioxide 26 mmol/L (22-29); Chloride 105 mmol/L (96-108); Creatinine Clr Calc Pharmacy 96.9; Estimated Glomerular Filt Rate > 60; Glucose Random 91 mg/dL (60-115); Potassium 4.3 mmol/L (3.3-5.1); Sodium 139 mmol/L (135-145); Total Protein 7.4 g/dL (6.5-8.0)
--- NOTE | 2022-11-29 11:58 | ECG_ITS ---
Test Reason : dizzy Blood Pressure : / mmHG Vent. Rate : 083 BPM Atrial Rate : 083 BPM P-R Int : 136 ms QRS Dur : 076 ms QT Int : 376 ms P-R-T Axes : 060 064 051 degrees QTc Int : 441 ms Normal sinus rhythm with sinus arrhythmia Normal ECG When compared with ECG of 24-SEP-2017 17:11, No significant change was found Referred By: Nina Gibson Electronically Signed By:AVELINA MOSLEY
--- NOTE | 2022-11-29 12:11 | PC.NURSE ---
PAtietn sleeping easily aroused patient and mother report improved symptoms
--- NOTE | 2022-11-29 13:19 | PC.NURSE ---
Patient up ambulatory to bathroom with mother no distress noted
[2022-11-29 13:29] VITALS: BP 116/64; PULSE 62; RESP 18; TEMP 36.9; O2SAT 98
== END 2022-11-29 13:36 | disposition home or self-care (01) ==
PROVIDERS: Physician Assistant; Emergency Provider Emergency Medicine; PCP Internal Medicine
DX: G43.909 Migraine, unspecified, not intractable, without status migrainosus (principal); R42 Dizziness and giddiness; Z79.899 Other long term (current) drug therapy
CPT/HCPCS: 36415; 70450; 80048; 80076; 83735; 85025; 93005; 96361; 96374; 96375; 99284; J1200; J1885; J2765

== ENCOUNTER 2022-12-04 15:45 | Outpatient (REF) | payer OTHER, SELFPAY ==
[2022-12-04 18:20] LABS: Erythrocyte Sedimentation Rate 20 MM/HR (0-20)
[2022-12-04 18:42] LABS: C Reactive Protein < 0.10 mg/dL (< or = 0.50)
[2022-12-04 18:56] LABS: Folate 11.8 ng/mL (> or = 4.0); Free T4 (Free Thyroxine) 0.88 ng/dL (0.71-1.85); Vitamin B12 299 pg/mL (200-900)
[2022-12-04 20:22] LABS: Thyroid Stimulating Hormone 3.35 uIU/mL (0.32-4.0)
== END 2022-12-04 15:46 | disposition home or self-care (01) ==
LOC: HO.LAB 15:45
PROVIDERS: PCP Internal Medicine; Visit Provider Internal Medicine
DX: G43.109 Migraine with aura, not intractable, without status migrainosus (principal)
CPT/HCPCS: 36415; 82550; 82607; 82746; 84439; 84443; 85652; 86140

== ENCOUNTER 2023-06-20 16:03 | Outpatient (AMB) | payer OTHER, SELFPAY ==
[2023-06-20 16:04] VITALS: BP 122/74; BMI 24.3
--- NOTE | 2023-06-20 16:04 | MHC.OFFVIS ---
Intake Vital Signs 06/20/23 16:04 Height 5 ft 7 in Weight 155 lb BMI 24.3 BP 122/74 Intake Visit Reasons: GOAL UMPIRE annual exam Intake Note: The patient agreed to use of a medical officer during this encounter. Scribed for REJI Akins by Karma Marr, medical officer, on 06/20/2023 at 4:08 pm EST. Financial Aid Director Required: No Information Interpreted: non-clinical & clinical [employer] Supervisor: [employer] District Supervisor Present (Aidyn) Allergies latex [LATEX] Allergy (Unknown, Verified 06/20/23 16:05) RASH Is last menstrual period known: Yes Last menstrual period: 06/11/23 Post menopausal: No HPI HPI Comments History of Present Illness Details She is a premenopausal woman presenting for annual exam. She admits to eating healthy and tries to stay active with exercise. Currently not sexually active. Reports she is worried about contraception/infertility she desires to have a near future . Her daughter is 11 yrs. old. . Regular monthly periods lasting 4-5 days; uses menstrual cup. Denies vaginal itching and irritation. Pt. request STD screening and blood work today. Denies family hx of ovarian cancer. Last pap smear 03/08/21. [facility] Medical History (Updated 06/20/23 @ 16:26 by Karma Marr) H/O abnormal cervical Papanicolaou smear Dysplasia of cervix, low grade (OANH 1) LGSIL (low grade squamous intraepithelial dysplasia) Pre-conception counseling Well woman exam with routine gynecological exam Family History Paternal Grandmother History of breast cancer Colon cancer Social History (Updated 06/20/23 @ 16:25 by Elizabeth Bryant CNM) Household Members: Children Household Members Other:: daughter Alcohol intake: current Alcohol intake frequency: a few times a month Patient Tobacco Use Status: Never used Tobacco 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[employer] Female Reproductive History Menstrual Age of Menarche: 12 Duration of menses: 3-5 days Date of last menstrual period: 06/11/23 control method: none Total pregnancies: 1 Full term: 1 Number of Living Children: 1 Date of last pap smear: 03/08/21 (LGSIL +HPV) History of abnormal pap smear: Yes (02/20 ASCUS 04/04/21 colpo CIN1) Physical Exam Vital Signs: Last Vital Signs BP 122/74 06/20/23 16:04 BMI result Body Mass Index 24.3 Const General: cooperative, healthy appearing, no acute distress, well developed and alert Orientation/consciousness: patient oriented x3 HEENT Head: Yes normal to inspection Eyes General: appearance normal, both eyes and all related structures Neck Neck: Yes normal visual inspection Thyroid: Thyroid normal Chest Chest palpation & inspection: normal inspection of the chest Breast/axilla inspection: normal inspection of the breasts (no puckering, dimpling, peau de orange, retraction, discharge, masses) Breast/axilla palpation: normal palpation of the breasts Resp Effort & Inspection: normal respiratory effort GI Inspection: Yes normal to inspection Palpation (GI): Soft to palpation (to palpation) Rectal Exam - Female: deferred General: Yes bladder normal to inspection External Female Exam: normal external appearance and normal appearance of the urethra Speculum Exam - Vagina: normal appearance of the vagina, normal palpation and normal vaginal discharge Speculum Exam - Cervix: normal appearance of the cervix, normal palpation and Other cervical findings present (bled with pap) Bimanual exam- vagina & uterus: normal palpation and normal palpation Bimanual Exam- Adnexa, other: normal adnexae and no masses Skin General skin exam: no rashes or lesions noted Neuro General: patient oriented x3 Cognition (Neuro): normal cognition Extrem General: Yes normal to inspection Psych Attitude: cooperative Thought process: Normal thought process present Assessment & Plan Assessment & Plan (1) Encounter for well woman exam: Code(s): Z01.419 - Encounter for gynecological examination (general) (routine) without abnormal findings Plan: Discussed: Current recommendations for pap smears per ASCCP guidelines. Breast awareness and periodic self breast exams. Maintaining a healthy lifestyle including a well balanced diet and routine exercise. Encouraged to use condoms for STD prevention. All of her questions and concerns were addressed to the best of my ability. RTO in one year for AG. (2) Potential exposure to STD: Code(s): Z20.2 - Contact with and (suspected) exposure to infections with a predominantly sexual mode of transmission Plan: BV testing and GC/CT panel today. STD blood work ordered. Await results and treat accordingly. (3) Pre-conception counseling: Code(s): Z31.69 - Encounter for other general counseling and advice on procreation Plan: Advised to consult with insurance regarding coverage for infertility specialist. Discussed single parenting if decided to not wait for a partner and fertility work up with specialist. (4) Family planning counseling: Code(s): Z30.09 - Encounter for other general counseling and advice on contraception (5) H/O abnormal cervical Papanicolaou smear: Code(s): Z87.42 - Personal history of other diseases of the female genital tract Orders: Orders Hepatitis B Core Antibody Today Z20.2 - Contact with and (suspected) exposure to infections with a predominantly sexual mode of transmission Syphilis Screen Today Z20.2 - Contact with and (suspected) exposure to infections with a predominantly sexual mode of transmission Bacterial Vaginosis Panel Today Z20.2 - Contact with and (suspected) exposure to infections with a predominantly sexual mode of transmission CT NG by PCR Today Z20.2 - Contact with and (suspected) exposure to infections with a predominantly sexual mode of transmission Hepatitis C Antibody Today Z20.2 - Contact with and (suspected) exposure to infections with a predominantly sexual mode of transmission HIV Ab/Ag Today Z20.2 - Contact with and (suspected) exposure to infections with a predominantly sexual mode of transmission Pap Smear Today N87.0 - Mild cervical dysplasia Coding Level of Care Code Est Pt Prev Care 18-39y(97161) Diagnoses Encounter for well woman exam Z01.419 Potential exposure to STD Z20.2 Pre-conception counseling Z31.69 Family planning counseling Z30.09 H/O abnormal cervical Papanicolaou smear Z87.42
== END 2023-06-20 16:25 | disposition home or self-care (01) ==
LOC: HO.HWS 16:03
PROVIDERS: PCP Internal Medicine; Visit Provider Advanced Practice Midwife
DX: Z01.419 Encounter for gynecological examination (general) (routine) without abnormal findings (principal); Z20.2 Contact with and (suspected) exposure to infections with a predominantly sexual mode of transmission; Z31.69 Encounter for other general counseling and advice on procreation; Z30.09 Encounter for other general counseling and advice on contraception; Z87.42 Personal history of other diseases of the female genital tract
CPT/HCPCS: 99395

== ENCOUNTER 2023-06-20 16:03 | Outpatient (REF) | payer OTHER, SELFPAY ==
[2023-06-22 22:48] LABS: HPV mRNA E6/E7 rflx Not Detected (Not Detected)
== END 2023-06-20 16:04 | disposition home or self-care (01) ==
LOC: HO.LNP 16:03
PROVIDERS: PCP Internal Medicine; Visit Provider Advanced Practice Midwife
DX: Z01.419 Encounter for gynecological examination (general) (routine) without abnormal findings (principal); Z11.51 Encounter for screening for human papillomavirus (HPV); N87.0 Mild cervical dysplasia
CPT/HCPCS: 87624; 88142

== ENCOUNTER 2023-06-20 16:29 | Outpatient (REF) | payer OTHER, SELFPAY ==
[2023-06-20 18:32] LABS: CT PCR NOT DETECTED (Not Detect.); NG PCR NOT DETECTED (Not Detect.)
[2023-06-21 13:49] LABS: BV Int Neg Control Negative (Negative); BV Int Pos Control Positive (Positive)
[2023-06-22 07:39] LABS: Syphilis Screen Nonreactive (Nonreactive)
[2023-06-22 08:06] LABS: HBc Num1 0.11 S/CO (0.00-0.79); HIV AB/AG Nonreactive (Nonreactive); HIV Num 1 0.05 S/CO (0.00-0.99); Hepatitis B Core Antibody Nonreactive (Nonreactive); ~HepC Num1 0.04 S/CO (0.00-0.79); ~Hepatitis C Antibody Nonreactive (Nonreactive)
== END 2023-06-20 16:30 | disposition home or self-care (01) ==
LOC: HO.LAB 16:29
PROVIDERS: PCP Internal Medicine; Visit Provider Advanced Practice Midwife
DX: Z20.2 Contact with and (suspected) exposure to infections with a predominantly sexual mode of transmission (principal)
CPT/HCPCS: 0353U; 86704; 86780; 86803; 87389; 87480; 87510; 87660

== ENCOUNTER 2023-08-26 15:16 | Emergency (ER) | payer OTHER, SELFPAY ==
--- NOTE | ~2023-08-26 | XR_ITS ---
EXAMINATION: XR HAND, RIGHT CLINICAL INFORMATION: Dogbite COMPARISON: None available. TECHNIQUE: PA, lateral, and oblique views of the right hand. FINDINGS: The bones and soft tissues are normal. No fracture. Alignment is anatomic. Joint spaces are maintained. No erosions or soft tissue calcifications. XR/XR hand RT 2V IMPRESSION: No fracture. No radiodense foreign body.
--- NOTE | 2023-08-26 15:29 | ED_ITS ---
HPI - Animal Bite General Chief Complaint: Animal Bite Stated Complaint: mult dog bites Time Seen by Provider: 08/26/23 16:30 Source: patient Mode of arrival: ambulatory Limitations: no limitations History of Present Illness HPI narrative: Patient is a 32-year-old presents emergency department for evaluation of multiple dog bites to both hands. This is her personal dog, UTD on vaccination. Her dog was caught under the couch, and when attempting to help her out, the dog bit her hands. Multiple lacerations to right thumb index finger left 5th digit predominantly, right hand digits with decreased flexion, pain, swelling. Last tetanus vaccination unknown. Related Data Home Medications Medication Instructions Recorded Confirmed sumatriptan succinate 50 mg tablet 50 mg PO 06/20/23 topiramate 50 mg tablet 50 mg PO BID 06/20/23 Previous Rx's Medication Instructions Recorded amoxicillin 875 mg-potassium 1 tab PO BID #14 tabs 08/26/23 clavulanate 125 mg tablet Allergies Allergy/AdvReac Type Severity Reaction Status Date / Time latex [LATEX] Allergy Unknown RASH Verified 06/20/23 16:05 Review of Systems Review of Systems: Yes all other systems are reviewed and are negative [facility] Past Medical History Attestation statement: The following information was validated with the patient. Source: old records reviewed Medical History H/O abnormal cervical Papanicolaou smear Dysplasia of cervix, low grade (OANH 1) LGSIL (low grade squamous intraepithelial dysplasia) Pre-conception counseling Well woman exam with routine gynecological exam Family History Family History Paternal Grandmother History of breast cancer Colon cancer Social History Social History (Updated 06/20/23 @ 16:25 by Elizabeth Bryant CNM) Household Members: Children Household Members Other:: daughter Alcohol intake: current Alcohol intake frequency: a few times a month Patient Tobacco Use Status: Never used Tobacco Advance Directives: No Advance Directives Information Provided: No 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 No acute distress.?Normal affect.? Neck: Normal inspection.? Neck supple.?? CVS: Heart sounds normal. Normal heart rate and rhythm.? Pulses normal.?? Respiratory: No respiratory distress.? Lung sounds clear to auscultation bilaterally?? Skin: Skin warm and dry.? Normal skin color.? Multiple scratches and puncture bocanegra to bilateral hands primarily including the right thumb and index finger as well as the left 5th digit. Right hand digits with decreased flexion and localized swelling. No subungual hematomas. Extremities: No extremity edema.? Neuro: Moves all extremities spontaneously. Sensation intact bilaterally. A mbulates with normal steady gait. Medications Administered Discontinued Medications Generic Name Dose Route Start Last Admin Trade Name Freq PRN Reason Stop Dose Admin Diphtheria/Tetanus/Acell Pertussis 0.5 ml 08/26/23 15:40 08/26/23 17:34 Diphth,Pertus(Acell),Tet Adult 0.5 Ml Syringe IM 08/26/23 15:41 0.5 ml .ONCE ONE Administration Medical Decision Making Medical Decision Making MDM Narrative: Patient is a 32-year-old female who presents emergency department for evaluation of multiple dog bites/scratches to the bilateral hands as per HPI. At the time my examination she appears overall well, extremities are neurovascularly intact distally. XR imaging was obtained to exclude osseous involvement, no evidence of fracture or dislocation. No subungual hematoma present. At this time none of the lacerations would be amenable to suture repair. They were irrigated extensively with saline and Betadine. Dog is up-to-date on rabies vaccination. Discussed prophylactic treatment antibiotics, worrisome signs and symptoms including those of infection that would warrant re-evaluation. All questions were answered. Stable for discharge home. Differential Diagnosis Differential Diagnoses: The differential diagnosis associated with the presentation includes (As noted above) Admission/Observation Consideration of admission/observation: Escalation of care including admission/observation considered Independent Interpretation I performed an independent interpretation of an: Plain X-Ray (I personally interpreted XR imaging and agree with radiologist impression.) Radiology Impression Discussion of test interpretation with radiology: I have reviewed the radiologist's reading. Radiologist Impression: XR/XR hand RT 2V IMPRESSION: No fracture. No radiodense foreign body. External Record Review External record reviewed: Outpatient record Prescription Management I considered prescription management with: Antibiotic Discharge Plan Discharge Clinical Impression: Dog bite Patient Disposition: Home, Self-Care Instructions: Animal Bite (ED) Additional Instructions: Complete the entire course of antibiotics as prescribed. If you develop i ncreasing pain, redness, swelling, pus-like discharge, fevers, chills, inability to bend the fingers, then these should be re-evaluated. Follow-up with your primary care provider as needed. Return back to emergency department any new or worsening symptoms or concerns. Prescriptions: New amoxicillin-pot clavulanate 875-125 mg tablet 1 tab PO BID Qty: 14 0RF No Action sumatriptan succinate 50 mg tablet 50 mg PO topiramate 50 mg tablet 50 mg PO BID Referrals: Martinez Cole MD [Primary Care Provider] - Interventions: ED Discharge Assessment Last Done: 08/26/23 17:35 Discharge Date/Time: 08/26/23 17:36
[2023-08-26 15:34] VITALS: BP 170/83; PULSE 68; RESP 18; TEMP 37.1; O2SAT 100; BMI 24.2
[2023-08-26] MEDS: Diphth,Pertus(ACell),Tet Adult 0.5 ML SYRINGE IM (17:34)
== END 2023-08-26 17:36 | disposition home or self-care (01) ==
PROVIDERS: Emergency Provider Emergency Medicine; PCP Internal Medicine
DX: S61.051A Open bite of right thumb without damage to nail, initial encounter (principal); S61.250A Open bite of right index finger without damage to nail, initial encounter; S61.257A Open bite of left little finger without damage to nail, initial encounter; W54.0XXA Bitten by dog, initial encounter; Y93.9 Activity, unspecified; Y92.009 Unspecified place in unspecified non-institutional (private) residence as the place of occurrence of the external cause; Y99.9 Unspecified external cause status; Z23 Encounter for immunization
CPT/HCPCS: 73120; 90471; 90715; 99283; 99284

== ENCOUNTER 2023-10-31 07:19 | Emergency (ER) | payer OTHER, SELFPAY ==
--- NOTE | ~2023-10-31 | CT_ITS ---
EXAMINATION: CT ABDOMEN AND PELVIS WITHOUT CONTRAST CLINICAL INFORMATION: Vomiting and hematuria COMPARISON: None available. TECHNIQUE: Multidetector volumetric imaging was performed from the superior aspect of the liver through the pubic symphysis. Sagittal and coronal reformatted images were obtained on the technologist's workstation. This CT examination was performed using dose optimization techniques as appropriate, variously including the following: *Automated exposure control *Adjustment of mA and/or kV according to patient size (this includes techniques or standardized protocols for targeted exams where dose is matched to indication/reason for exam; i.e. extremities or head) *Use of iterative reconstruction technique DLP: 465 mGy-cm FINDINGS: LUNG BASES: There is platelike atelectasis right middle lobe and left lower lobe. The heart size is normal. LIVER, GALLBLADDER, AND BILIARY TREE: The liver is normal in size, shape, and attenuation. No focal hepatic lesion or biliary ductal dilatation is present. The gallbladder is unremarkable with no evidence of radiopaque gallstones, gallbladder wall thickening, or obvious pericholecystic inflammatory changes. PANCREAS: Unremarkable. SPLEEN: Unremarkable. ADRENAL GLANDS: Unremarkable. KIDNEYS AND URETERS: The kidneys are normal in size, shape, and attenuation. No hydronephrosis, hydroureter, or calculi seen. No perinephric stranding. BLADDER: Unremarkable. GASTROINTESTINAL TRACT: There is scattered stool and gas seen throughout the colon without significant distention. The small bowel loops are normal caliber. Cecum is low-lying in the right pelvis. Appendix is not visualized. No free air or free fluid seen. Sclerotic ABDOMINAL WALL: No significant hernia is appreciated. LYMPH NODES: Normal. VASCULAR: Unremarkable. PELVIC VISCERA: The uterus is retroverted and unremarkable. No adnexal mass or free fluid seen.. A small phlebolith is seen inferior to the nondistended urinary bladder. OSSEOUS STRUCTURES: Unremarkable. CT/CT abdomen pelvis wo IV con IMPRESSION: 1. No acute intra-abdominal process seen. 2. Mild constipation. Fleischner guidelines were followed.
[2023-10-31 07:28] VITALS: BP 156/91; PULSE 84; RESP 18; TEMP 36.9; O2SAT 100
--- NOTE | 2023-10-31 07:34 | ED_ITS ---
HPI - Nausea/Vomiting/Diarrhea General Chief complaint: General Medical Stated complaint: Flu Symptoms Time Seen by Provider: 10/31/23 07:24 Source: patient Mode of arrival: ambulatory Limitations: no limitations History of Present Illness HPI Narrative: 33 yo female with no sig PMH here with c/o going on a trip to [place] on Sunday then on Sunday AM developed n/v/d sore throat URI symptoms. All weekend she was laid up on bed. No one else was sick. She is not vaccinated aginst the flu. She tried to drink fluids and liquid IV. She feels worse and now notes her urine is very dark like a burgundy color x 3 days and is having a hard time getting fluids in. MD elicited complaint: nausea, vomiting and diarrhea Onset (ago): day(s) (4) Description of vomiting: food contents and watery Description of diarrhea: watery Associated nausea: Yes Associated abdominal pain: No Location of pain: other (throat) Pain consistency: intermittent Severity: moderate Quality: aching Exacerbating factors: eating and other (swallowing) Relieving factors: none Associated symptoms: myalgias, fever/chills, headaches, loss of appetite, malaise, nausea/vomiting, weakness and decreased urine output Treatment prior to arrival: NSAIDs and other OTC medicine Related Data Home Medications Medication Instructions Recorded Confirmed sumatriptan succinate 50 mg tablet 50 mg PO 06/20/23 topiramate 50 mg tablet 50 mg PO BID 06/20/23 Previous Rx's Medication Instructions Recorded amoxicillin 875 mg-potassium 1 tab PO BID #14 tabs 08/26/23 clavulanate 125 mg tablet cefuroxime axetil 500 mg tablet 500 mg PO BID 7 days #14 tabs 10/31/23 ondansetron 4 mg disintegrating 4 mg PO Q8H PRN nausea and 10/31/23 tablet vomiting #20 tabs Allergies Allergy/AdvReac Type Severity Reaction Status Date / Time latex [LATEX] Allergy Unknown RASH Verified 10/31/23 07:58 Review of Systems 2 Review of Systems: Constitutional : pos Fever, pos Chills, pos Fatigue ENT/Mouth : pos sore throat, No Rhinorrhea Eyes: No Eye Pain, No Swelling, No Redness Cardiovascular : No Chest Pain, No SOB, No Dyspnea on Exertion Respiratory : No Cough, No Sputum Gastrointestinal : pos Nausea, pos Vomiting, pos Diarrhea, No abdominal Pain Genitourinary : No Dysuria, No Urinary Frequency, pos Hematuria, Musculoskeletal : No joint pain, pos Myalgias, No Joint Swelling Skin : No Skin Lesions, No rash Neuro : No Weakness, No Numbness, No Dizziness, positive Headache Psych : No Anxiety/Panic, No Depression All other systems reviewed and are negative Gastrointestinal: Gastrointestinal: Reports nausea PMFSH Past Medical History Attestation statement: The following information was validated with the patient. 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 Oriented X3. No acute distress. Eyes: Pupils equal, round and reactive to light. ENT: Pharynx moderate erythema no exudates no swelling uvula is midline, voice is hoarse Neck: Normal inspection. Neck supple. CVS: Normal heart rate and rhythm. Pulses normal. Respiratory: No respiratory distress. Breath sounds normal. Abdomen: Soft and nontender. Skin: Skin warm and dry. Normal skin color. Normal skin turgor. Extremities: No lower extremity edema. Neuro: Oriented X 3. No motor deficit. No sensory deficit.a Course Course Course Narrative: given urine - will start on antibiotics, Dr. Patel did review case follow up as outpatient, treat with antibiotics does not appear consistent with nephropathy called micro urine reflexed to culture - confirmed with lab [id number] Medications Administered Discontinued Medications Generic Name Dose Route Start Last Admin Trade Name Pao PRN Reason Stop Dose Admin Sodium Chloride 1,000 mls @ 999 mls/hr 10/31/23 07:30 10/31/23 09:39 Ns IVCONT 10/31/23 09:30 999 mls/hr .Q1H1M BOBBI Administration Ceftriaxone Sodium 1 gm/ 50 mls @ 100 mls/hr 10/31/23 09:32 10/31/23 09:40 Sodium Chloride IV 10/31/23 10:01 100 mls/hr ONCE ONE Administration Medical Decision Making Medical Decision Making MDM Narrative: 33 yo female with no sig PMH here with c/o URI symptoms along with GI - she now has dark urine, fatigue and overall not getting better. At this time given her complaints I have ordered labs, IVF x 2L, cpk, strep panel, mono, viral panel. Her abdomen is benign at this time. Concern for rhabo is high Differential Diagnosis Differential Diagnoses: The differential diagnosis associated with the presentation includes strep, covid, flu, mono, dehydration, rhabdo Admission/Observation Consideration of admission/observation: Escalation of care including admission/observation considered improved VS stable, can be managed as outpatient follow up labs as outpatient oral abx Consult Healthcare Provider Management of the patient was discussed with: Machine Stuffer Automatic Lab Data [facility] Lab Attestation statement: I reviewed the patient's lab results. 10/31/23 07:47 10/31/23 07:47 Labs: Lab Results 10/31/23 10/31/23 10/31/23 Range/Units 07:47 07:50 07:51 WBC 8.6 (4.8-10.8) X10*3/uL RBC 3.70 L (4.20-5.50) X10*6/uL Hgb 10.0 L (12.0-16.0) g/dl Hct 32.1 L (37.0-47.0) % MCV 86.8 (80.0-98.0) fL MCH 27.0 (27.0-33.0) pg MCHC 31.2 (31.0-35.0) g/dl RDW 14.3 (11.0-16.0) % Plt Count 317 (160-400) X10*3/uL MPV 10.4 (9.4-12.3) fL Immature Gran % (Auto) 0.4 (0.0-0.4) % Neut % (Auto) 74.4 H (45-73) % Lymph % (Auto) 15.8 L (20-40) % Ransom % (Auto) 8.3 (2-11) % Eos % (Auto) 0.9 (0-4) % Baso % (Auto) 0.2 (0-2) % Lymph # (Auto) 1.4 (1.2-4.9) X10*3/uL Ransom # (Auto) 0.7 (0.1-1.2) X10*3/uL Eos # (Auto) 0.1 (0.0-0.4) X10*3/uL Baso # (Auto) 0.0 (0.0-0.2) X10*3/uL Abs Immat Gran (auto) 0.03 (0.00-0.03) X10*3/uL Absolute Neuts (auto) 6.4 (2.0-8.3) x10*3/uL Absolute Nucleated RBC 0.000 (0.0-0.012) X10*3/uL Nucleated RBC % (auto) 0.0 (0.0-0.2) /100WBC Sodium 138 (135-145) mmol/L Potassium 3.4 (3.3-5.1) mmol/L Chloride 105 (96-108) mmol/L Carbon Dioxide 23 (22-29) mmol/L Anion Gap 13 (12-20) BUN 8 L (9-16) mg/dL Creatinine 0.84 (0.5-1.4) mg/dL Estim Creat Clear Calc 92.6 Estimated GFR > 60 Random Glucose 105 (60-115) mg/dL Calcium 9.2 (8.4-10.2) mg/dL Magnesium 1.9 (1.6-2.6) mg/dL Total Bilirubin 0.3 (0.0-1.0) mg/dL Direct Bilirubin 0.1 (0.0-0.5) mg/dL AST 52 H (5-31) U/L ALT 63 H (0-31) U/L Alkaline Phosphatase 150 H (39-117) U/L Total Creatine Kinase 72 (26-140) U/L Total Protein 7.5 (6.5-8.0) g/dL Albumin 4.0 (3.5-5.0) g/dL Lipase 23 (8-78) U/L Urine Color Dark Yellow Urine Appearance Turbid Urine pH 5.5 (5.0-9.0) Ur Specific [place] 1.015 (1.005-1.025) Urine Protein 100 (2+) H (Neg-Trace) mg/dL Urine Glucose (UA) Negative (Negative) mg/dL Urine Ketones Negative (Negative) mg/dL Urine Blood Large (3+) H (Negative) Urine Nitrite Negative (Negative) Ur Leukocyte Esterase Small (1+) H (Negative) Urine RBC >20 H (0-2) /HPF Urine WBC 21-50 H (0-5) /HPF Ur Squamous Epith Cells 11-20 (0-2) /HPF Urine Bacteria None Seen (None Seen) Hyaline Casts 0-2 (0-2) /LPF Urine Test NEGATIVE (NEGATIVE) Monoscreen Negative (Negative) Influenza Type A (PCR) NEGATIVE (Negative) Influenza Type B (PCR) NEGATIVE (Negative) RSV RNA Qual (PCR) NEGATIVE (Negative) SARS-CoV-2 RNA (RT-PCR) NEGATIVE (Negative) S. pyogenes GrpA HIREN Negative (Negative) Independent Interpretation I performed an independent interpretation of an: CT Scan (no stone) Radiology Impression Discussion of test interpretation with radiology: I have reviewed the radiologist's reading. External Record Review External record reviewed: Office record Prescription Management I considered prescription management with: Antibiotic and Other Discharge Plan Discharge Clinical Impression: Acute viral syndrome Hematuria Qualifiers: Hematuria type: gross Qualified Code(s): R31.0 - Gross hematuria Pharyngitis Qualifiers: Pharyngitis/tonsillitis etiology: unspecified etiology Qualified Code(s): J02.9 - Acute pharyngitis, unspecified Patient Disposition: Home, Self-Care Instructions: Pharyngitis (ED), Hematuria (ED), Viral Syndrome (ED) Additional Instructions: follow up with spray machine tender please call your doctor as well and repeat your CBC and liver tests in 2 days return for worsening pain, fevers, vomiting, inability to eat or drink or any other concerns Prescriptions: New cefuroxime axetil 500 mg tablet 500 mg PO BID 7 Days Qty: 14 0RF ondansetron 4 mg tablet,disintegrating 4 mg PO Q8H PRN (Reason: nausea and vomiting) Qty: 20 0RF No Action amoxicillin-pot clavulanate 875-125 mg tablet 1 tab PO BID Qty: 14 0RF sumatriptan succinate 50 mg tablet 50 mg PO topiramate 50 mg tablet 50 mg PO BID Referrals: Krishna Gil MD [Physician] - (call today to schedule outpatient appointment) Stand Alone Forms: Work/School Release
[2023-10-31 07:57] LABS: MANUAL DIFF FLAG NO
[2023-10-31 07:58] VITALS: BMI 24.3
[2023-10-31 07:59] LABS: UPreg QC Valid YES
[2023-10-31 07:59] LABS: Basophils Percent Auto 0.2 % (0-2); Eosinophils Absolute Auto 0.1 X10*3/uL (0.0-0.4); Eosinophils Percent Auto 0.9 % (0-4); Hematocrit 32.1 % (37.0-47.0); Imm Gran Abs Auto 0.03 X10*3/uL (0.00-0.03); Imm Gran Pct Auto 0.4 % (0.0-0.4); Lymphocytes Absolute Auto 1.4 X10*3/uL (1.2-4.9); Lymphocytes Percent Auto 15.8 % (20-40); Mean Corpuscular HGB Conc 31.2 g/dl (31.0-35.0); Mean Corpuscular Volume 86.8 fL (80.0-98.0); Mean Platelet Volume 10.4 fL (9.4-12.3); Monocytes Absolute Auto 0.7 X10*3/uL (0.1-1.2); Monocytes Percent Auto 8.3 % (2-11); Neutrophils Absolute Auto 6.4 x10*3/uL (2.0-8.3); Neutrophils Percent Auto 74.4 % (45-73); Platelet Count 317 X10*3/uL (160-400); Red Cell Distribution Width 14.3 % (11.0-16.0); White Blood Count 8.6 X10*3/uL (4.8-10.8)
[2023-10-31 08:01] LABS: Urine Pregnancy NEGATIVE (NEGATIVE)
[2023-10-31] MEDS: 0.9 % Sodium Chloride 1,000 ML 999 ML IVCONT ×2 (08:01→09:39)
[2023-10-31 08:02] LABS: Appearance Urine Turbid; Color Urine Dark Yellow; Glucose Urine UA Negative (Negative); Leukocyte Esterase Urine Small (1+) (Negative); Nitrite Urine Negative (Negative); PH 5.5 (5.0-9.0); Specific Gravity - Urine 1.015 (1.005-1.025); UMIC TRIGGER UACC YES; Urine Blood Large (3+) (Negative); Urine Ketones Negative (Negative); Urine Protein 100 (2+) mg/dL (Neg-Trace)
[2023-10-31 08:12] LABS: IDNOW Serial# 08D9AD1C; Strep A Nucleic Acid Negative (Negative)
[2023-10-31 08:14] LABS: Bacteria Urine None Seen (None Seen); Hyaline Casts Urine 0-2 /LPF (0-2); RBC Urine >20 /HPF (0-2); UACC Culture Trigger YES; WBC Urine 21-50 /HPF (0-5)
[2023-10-31 08:16] LABS: Alanine Aminotransferase 63 U/L (0-31); Alkaline Phosphatase 150 U/L (39-117); Anion Gap 13 (12-20); Aspartate Amino Transferase 52 U/L (5-31); Bilirubin Direct 0.1 mg/dL (0.0-0.5); Bilirubin Total 0.3 mg/dL (0.0-1.0); Blood Urea Nitrogen 8 mg/dL (9-16); Calcium 9.2 mg/dL (8.4-10.2); Carbon Dioxide 23 mmol/L (22-29); Chloride 105 mmol/L (96-108); Creatinine Clr Calc Pharmacy 92.6; Estimated Glomerular Filt Rate > 60; Glucose Random 105 mg/dL (60-115); Lipase 23 U/L (8-78); Magnesium 1.9 mg/dL (1.6-2.6); Potassium 3.4 mmol/L (3.3-5.1); Sodium 138 mmol/L (135-145); Total Protein 7.5 g/dL (6.5-8.0)
[2023-10-31 08:36] LABS: Influenza A PCR NEGATIVE (Negative); Influenza B PCR NEGATIVE (Negative); Resp Syncy Virus RNA Qual PCR NEGATIVE (Negative); SARS COV2 PCR INHOUSE NEGATIVE (Negative)
[2023-10-31 09:25] VITALS: BP 117/80; PULSE 85; RESP 16; TEMP 36.9; O2SAT 100
[2023-10-31] MEDS: cefTRIAXone sodium 1 GM in 0.9 % Sodium Chloride 50 ML IV (09:40)
[2023-10-31 09:54] LABS: Monotest Negative (Negative)
== END 2023-10-31 10:32 | disposition home or self-care (01) ==
PROVIDERS: Emergency Provider Emergency Medicine; PCP Internal Medicine
DX: B34.9 Viral infection, unspecified (principal); J02.9 Acute pharyngitis, unspecified; R31.0 Gross hematuria; Z11.52 Encounter for screening for COVID-19; Z20.828 Contact with and (suspected) exposure to other viral communicable diseases
CPT/HCPCS: 0241U; 74176; 80048; 80076; 81001; 81003; 81025; 82550; 83690; 83735; 85025; 86308; 87086; 87651; 96361; 96365; 99284; J0696

== ENCOUNTER 2023-11-05 12:20 | Outpatient (REF) | payer OTHER, SELFPAY ==
[2023-11-05 13:15] LABS: MANUAL DIFF FLAG NO
[2023-11-05 13:42] LABS: Basophils Percent Auto 0.5 % (0-2); Eosinophils Absolute Auto 0.1 X10*3/uL (0.0-0.4); Eosinophils Percent Auto 0.8 % (0-4); Hematocrit 33.9 % (37.0-47.0); Hemoglobin 10.5 g/dl (12.0-16.0); Imm Gran Abs Auto 0.03 X10*3/uL (0.00-0.03); Imm Gran Pct Auto 0.5 % (0.0-0.4); Lymphocytes Absolute Auto 1.3 X10*3/uL (1.2-4.9); Lymphocytes Percent Auto 20.2 % (20-40); Mean Corpuscular Hemoglobin 26.7 pg (27.0-33.0); Mean Corpuscular Volume 86.3 fL (80.0-98.0); Mean Platelet Volume 10.3 fL (9.4-12.3); Monocytes Absolute Auto 0.5 X10*3/uL (0.1-1.2); Monocytes Percent Auto 7.5 % (2-11); Neutrophils Absolute Auto 4.5 x10*3/uL (2.0-8.3); Neutrophils Percent Auto 70.5 % (45-73); Platelet Count 360 X10*3/uL (160-400); Red Blood Count 3.93 X10*6/uL (4.20-5.50); White Blood Count 6.4 X10*3/uL (4.8-10.8)
[2023-11-05 13:55] LABS: Alanine Aminotransferase 32 U/L (0-31); Alkaline Phosphatase 143 U/L (39-117); Anion Gap 11 (12-20); Aspartate Amino Transferase 17 U/L (5-31); Bilirubin Total 0.2 mg/dL (0.0-1.0); Blood Urea Nitrogen 9 mg/dL (9-16); C Reactive Protein 0.88 mg/dL (< or = 0.50); Calcium 9.5 mg/dL (8.4-10.2); Carbon Dioxide 26 mmol/L (22-29); Chloride 104 mmol/L (96-108); Estimated Glomerular Filt Rate > 60; Glucose Random 97 mg/dL (60-115); Potassium 4.3 mmol/L (3.3-5.1); Sodium 137 mmol/L (135-145); Total Protein 7.7 g/dL (6.5-8.0)
[2023-11-05 14:37] LABS: Erythrocyte Sedimentation Rate 59 MM/HR (0-20)
== END 2023-11-05 12:21 | disposition home or self-care (01) ==
LOC: HO.10HDL 12:20
PROVIDERS: Visit Provider Internal Medicine
DX: R79.89 Other specified abnormal findings of blood chemistry (principal); D64.9 Anemia, unspecified; M54.9 Dorsalgia, unspecified
CPT/HCPCS: 36415; 80053; 82550; 85025; 85652; 86140

== ENCOUNTER 2023-11-05 16:18 | Emergency (ER) | payer OTHER, SELFPAY ==
--- NOTE | ~2023-11-05 | CT_ITS ---
EXAMINATION: CT HEAD WITHOUT CONTRAST CLINICAL INFORMATION: Headaches and neck pain COMPARISON: CT head from 11/29/2022 TECHNIQUE: Contiguous axial imaging was performed from the skull base to vertex without intravenous administration of contrast. This CT examination was performed using dose optimization techniques as appropriate, variously including the following: *Automated exposure control *Adjustment of mA and/or kV according to patient size (this includes techniques or standardized protocols for targeted exams where dose is matched to indication/reason for exam; i.e. extremities or head) *Use of iterative reconstruction technique DLP: 913 mGy-cm FINDINGS: There is no evidence of acute intracranial hemorrhage or territorial infarction. No abnormal mass effect or midline shift is seen. Montoya to white matter differentiation is well preserved. No extra-axial fluid collections are identified. The ventricles are normal in size. There is no abnormal attenuation within the brain parenchyma. The osseous structures and soft tissues are normal. Small amount of fluid in the left mastoid air cells. The mastoid air cells and visualized portions of the paranasal sinuses are well aerated. CT/CT cervical spine wo IV con IMPRESSION: 1. No acute intracranial pathology. 2. Small amount of fluid in left mastoid air cells. EXAMINATION: Noncontrast CT scan of the cervical spine. INDICATION: Headache neck pain COMPARISON: None. TECHNIQUE: Helical, multidetector axial images were obtained from the occiput to the upper thorax. Coronal and sagittal reformats of the cervical spine were provided for interpretation. DLP: 913 mGy-cm FINDINGS: No acute fractures or dislocations of the cervical spine are seen. Straightening of normal cervical curvature which may be secondary to patient positioning versus muscle spasm. Anatomic alignment and positioning of the vertebral bodies and posterior elements is noted. The atlantoaxial joint and craniovertebral articulations are normal without evidence of subluxation. There is no prevertebral soft tissue swelling. The thyroid gland and visualized portions of the lung apices and mediastinum are unremarkable. IMPRESSION: 1. No acute visible fracture or dislocation. 2. Straightening of normal cervical curvature which may be secondary to patient positioning versus muscle spasm.
[2023-11-05 16:23] VITALS: BP 144/84; PULSE 67; RESP 18; TEMP 36.8; O2SAT 100; BMI 24.7
--- NOTE | 2023-11-05 16:24 | ED.GENADULT ---
HPI - General Adult General Chief complaint: General Medical Stated complaint: pain stiff neck virus for a week Time Seen by Provider: 11/05/23 20:51 Source: patient Mode of arrival: ambulatory Limitations: no limitations History of Present Illness HPI narrative: 33-year-old female with no significant past medical history who presents emergency department for evaluation of viral-like symptoms and a stiff neck. Patient states she travel to [place] on , 10/26/2023 (5 days prior). She states that the next day while she was in [place] she became ill. She developed subjective fever, chills, sweats, nausea, vomiting and diarrhea. She states she return to this area Sunday10/30/2023 and still was feeling sick therefore she came to the emergency department on 10/31/2023. At the time of the your evaluation she did complain of dark urine. There was a concerned that she may have rhabdomyolysis versus urinary tract infection. She was given ceftriaxone 1 g IV and started on cefuroxime 500 mg twice a day for 7 days. Urinalysis grew less than 10,000 colony-forming units of Croynebacterium sp. Patient still complaining of subjective fever, chills, rhinorrhea, cough, nausea without vomiting or diarrhea. She denied frequency, urgency or dysuria. She states that for the past 3 days she has had a very stiff neck which is gotten progressively worse. She did see Dr. Cole today who did do blood work on her. He also started her on Flexeril which did not help her pain or neck stiffness. She called him back this afternoon and he advised to go to the emergency department for evaluation. Related Data Home Medications ?Medication ?Instructions ?Recorded ?Confirmed topiramate 50 mg tablet 50 mg PO BID 06/20/23 asaukizpasir-rkleoxnp-jnhrrr tablet 1 tab PO DAILY 11/14/23 sumatriptan succinate 50 mg tablet 50 mg PO PRN 11/14/23 Previous Rx's ?Medication ?Instructions ?Recorded diphenhydramine HCl 25 mg capsule 50 mg (2 x 25 mg) PO Q6H PRN 11/06/23 headache, nausea, vomiting #20 caps Allergies Allergy/AdvReac Type Severity Reaction Status Date / Time latex [LATEX] Allergy Unknown RASH Verified 12/05/23 16:14 [facility] Past Medical History [facility] Narrative: Social history: She denies tobacco, alcohol and drug use. Medical History (Updated 12/05/23 @ 16:33 by Krishna Gil MD) H/O abnormal cervical Papanicolaou smear Dysplasia of cervix, low grade (OANH 1) LGSIL (low grade squamous intraepithelial dysplasia) Pre-conception counseling Well woman exam with routine gynecological exam Surgical History History of laparoscopy Family History Family History Paternal Grandmother History of breast cancer Colon cancer Social History Social History Household Members: Children Household Members Other:: daughter Alcohol intake: current Alcohol intake frequency: a few times a month Patient Tobacco Use Status: Never used Tobacco 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[employer] Physical Exam ED Vital Signs: Vital Signs - 24 hr 11/05/23 16:23 11/05/23 18:28 11/05/23 20:22 Temperature 98.3 F 96.9 F 98.2 F Pulse Rate 67 70 70 Respiratory Rate 18 16 16 Blood Pressure 144/84 H 134/81 140/99 H Pulse Oximetry 100 100 100 Oxygen Delivery Method Room Air Room Air Room Air 11/05/23 20:39 11/05/23 22:39 11/06/23 00:24 Temperature 97.5 F 97.3 F 98.2 F Pulse Rate 77 62 73 Respiratory Rate 17 14 15 Blood Pressure 121/83 133/82 118/74 Pulse Oximetry 100 100 99 Oxygen Delivery Method Room Air Room Air Room Air BMI result Body Mass Index 24.7 Vital signs revealed an elevated blood pressure of 144/84 otherwise unremarkable Exam: General: Awake, alert in no distress, patient is sitting upright in the stretcher and can not move her neck secondary to stiffness and pain Head: Normocephalic, atraumatic EENT: PERRL, Lids normal, sclera normal, conjunctiva normal, nose normal , ears normal, throat without erythema or exudates Neck: Nuchal rigidity, no adenopathy Lung: breath sounds symmetric, no wheezing, rales or rhonchi Chest: symmetric movement, nontender Heart: regular rate and rhythm, normal S1, S2 no murmurs or rubs Abdomen: soft, non-tender, nondistended, normal bowel sounds Back: no vertebral tenderness, no CVAT Extremities: no deformities, moves all extremities symmetrically Neuro: Awake, alert, oriented, normal speech, cranial nerves intact, moves all extremities symmetrically Psych: Pleasant, cooperative Course Course Course Narrative: JARROD- 16:30PM - 33-year-old female presenting to the ER after her PCP sent her here due to patient has been having headache and neck pain. She reports this all started over the weekend after she traveled from [place]. She reports that she went to [place] on the 26 of October. The same day she arrived she started vomiting then the next day she started having chills, fatigue, subjective fevers, nausea vomiting and then she started having this neck pain. She reports she came back on the 30 of October and still having the symptoms. She reports she was seen here over the weekend discharged home. She went to her PCP and had outpatient blood work and PCP report that she has chronic anemia, chronic elevated LFTs and her white blood cell count was 6000. He also reported that she had an elevated sed rate of 59. Her CRP was 0.88. He was concerned that she may need further evaluation treatment he was unsure if she needed a lumbar puncture. Although patient denies any measured fevers. She reports she does have a thermometer at home but did not take her temperature. She denies any dizziness, change in vision, chest pain, recent falls or trauma or paresthesias or any other symptoms complaints or concerns. She reports the pain is in her neck and goes up to the base of her skull worse with range of motion. She reports she took Flexeril earlier today around 130 and no symptomatic relief therefore she called her PCP again and he was concerned that she should come to the ER due to elevated sed rate. Plan: Labs, blood cultures, COVID/RSV/flu swab, CT scan of brain/cervical spine patient will be sent back to the waiting room to be evaluated the ED. Medications Administered Discontinued Medications Generic Name Dose Route Start Last Admin Trade Name Pao PRN Reason Stop Dose Admin Acetaminophen 975 mg 11/05/23 18:58 11/05/23 19:00 Acetaminophen 325 Mg Tablet PO 11/05/23 18:59 975 mg ONCE ONE Administration Diphenhydramine HCl 50 mg 11/05/23 21:47 11/05/23 22:59 Diphenhydramine Hcl 50 Mg/Ml Vial IVPUSH 11/05/23 21:48 50 mg ONCE STA Administration Sodium Chloride 1,000 mls @ 999 mls/hr 11/05/23 22:35 11/05/23 23:00 Ns IV 11/05/23 23:35 999 mls/hr .Q1H1M STA Administration Ketorolac Tromethamine 15 mg 11/05/23 21:47 11/05/23 22:59 Ketorolac Tromethamine 15 Mg/Ml Vial IVPUSH 11/05/23 21:48 15 mg ONCE STA Administration Metoclopramide HCl 10 mg 11/05/23 21:47 11/05/23 22:59 Metoclopramide Hcl 10 Mg/2 Ml Vial IVPUSH 11/05/23 21:48 10 mg ONCE STA Administration Procedures Lumbar Puncture Time Out Performed: No Patient Position: upright Skin Prep: Povidone-Iodine 1% Local Anesthetic: lidocaine 1% Amount of anesthesia used (mL): 3 Spinal Needle Gauge: 22G Interspace Used: L4-L5 Fluid Initially Obtained: clear Complications: none Additional Comments: Patient tolerated the procedure well. She was placed flat on her back and instructed to stay flat for 1 hour after the procedure. Medical Decision Making Medical Decision Making MDM Narrative: 33-year-old female with no significant past medical history who presents emergency department for evaluation of viral-like symptoms and a stiff neck. Patient has been ill since 10/26/2023, was seen in the emergency department on 10/31/2023 diagnosed with viral infection and urinary tract infection. At time treated with ceftriaxone 1 g IV and is taking cefuroxime 500 mg twice a day. Urine culture was negative from that visit. Patient has had 3 days of worsening neck stiffness and was sent to emergency department by her PCP for evaluation. Vital signs revealed that she was afebrile but did have an elevated blood pressure. Physical examination revealed nuchal rigidity otherwise unremarkable. Differential diagnosis: ?Includes but is not limited to bacterial meningitis, partially treated bacterial meningitis on antibiotics, viral meningitis, muscle strain, viral syndrome Following evaluation was ordered: CBC, CMP, liver panel, magnesium, lactic acid, lipase, urinalysis, magnesium, urine test, quantitative test, COVID-19, influenza, RSV, CSF: Cell count with differential, Gram stain, glucose, protein, meningitis/encephalitis panel, CT scan of the head and cervical spine without IV contrast. Course: 22:33 Given her nuchal rigidity, I did perform a spinal tap. The patient gave me informed written consent prior to procedure. Patient tolerated the procedure well. My interpretation of the patient's laboratory evaluation is as follows: WBC normal 6800 with a normal differential. Macrocytic anemia with an H&H of 10.3 and 33.5-she has had similar anemia in the past but was microcytic previously. CMP was normal except for an elevated alk-phos of 142. Lipase was below detectable limits. Quantitative test was negative. Magnesium was normal. Lactic acid was normal at 0.8. COVID-19, RSV and influenza were negative. Urinalysis revealed 2+ protein, 3+ blood, trace leukocyte esterase. Microscopic revealed greater than 20 RBCs, 11-20 WBCs, 6-10 squamous cells, no bacteria-this is a non clean catch specimen. ESR was elevated 59. CRP elevated 0.88 from outpatient blood draw at 12:25 hours: CT scan of the head and cervical spine were negative. Patient will be treated with ceftriaxone 1 g IV, Toradol 15 mg IV, Reglan 10 mg IV and Benadryl 50 mg IV. 01:11 My independent interpretation of CSF fluid results is as follows: Total protein normal 16.3. Glucose normal 56. RBCs 0, WBCs 0. Appearance was clear and colorless. The CSF meningitis/encephalitis panel was negative. Given this negative CSF evaluation do not think that the patient viral or bacterial meningitis. Patient most likely has a post viral headache/migraine syndrome which I will treat with Reglan 10 mg, Benadryl 50 mg and Toradol 10 mg every 6 hours as needed. Patient was also advised to continue taking her Flexeril as prescribed by her PCP. Lab Data 11/05/23 17:27 11/05/23 17:27 Labs: Lab Results 11/05/23 11/05/23 11/05/23 Range/Units 17:27 22:02 22:37 WBC 6.8 (4.8-10.8) X10*3/uL RBC 3.92 L (4.20-5.50) X10*6/uL Hgb 10.3 L (12.0-16.0) g/dl Hct 33.5 L (37.0-47.0) % MCV 85.5 (80.0-98.0) fL MCH 26.3 L (27.0-33.0) pg MCHC 30.7 L (31.0-35.0) g/dl RDW 13.9 (11.0-16.0) % Plt Count 360 (160-400) X10*3/uL MPV 10.1 (9.4-12.3) fL Immature Gran % (Auto) 0.6 H (0.0-0.4) % Neut % (Auto) 68.1 (45-73) % Lymph % (Auto) 23.1 (20-40) % Lyman % (Auto) 6.6 (2-11) % Eos % (Auto) 1.2 (0-4) % Baso % (Auto) 0.4 (0-2) % Lymph # (Auto) 1.6 (1.2-4.9) X10*3/uL Lyman # (Auto) 0.5 (0.1-1.2) X10*3/uL Eos # (Auto) 0.1 (0.0-0.4) X10*3/uL Baso # (Auto) 0.0 (0.0-0.2) X10*3/uL Abs Immat Gran (auto) 0.04 H (0.00-0.03) X10*3/uL Absolute Neuts (auto) 4.7 (2.0-8.3) x10*3/uL Absolute Nucleated RBC 0.000 (0.0-0.012) X10*3/uL Nucleated RBC % (auto) 0.0 (0.0-0.2) /100WBC Sodium 138 (135-145) mmol/L Potassium 3.9 (3.3-5.1) mmol/L Chloride 106 (96-108) mmol/L Carbon Dioxide 27 (22-29) mmol/L Anion Gap 9 L (12-20) BUN 8 L (9-16) mg/dL Creatinine 0.76 (0.5-1.4) mg/dL Estim Creat Clear Calc 102.3 Estimated GFR > 60 Random Glucose 98 (60-115) mg/dL Lactic Acid 0.8 (0.5-2.0) mmol/L Calcium 9.6 (8.4-10.2) mg/dL Magnesium 2.0 (1.6-2.6) mg/dL Total Bilirubin 0.2 (0.0-1.0) mg/dL Direct Bilirubin < 0.2 (0.0-0.5) mg/dL AST 16 (5-31) U/L ALT 30 (0-31) U/L Alkaline Phosphatase 142 H (39-117) U/L Total Protein 7.7 (6.5-8.0) g/dL Albumin 4.0 (3.5-5.0) g/dL Lipase 26 (8-78) U/L Beta HCG, Quant < 2 mIU/mL Urine Color Yellow Urine Appearance Cloudy Urine pH 6.0 (5.0-9.0) Ur Specific Proctor 1.020 (1.005-1.025) Urine Protein 100 (2+) H (Neg-Trace) mg/dL Urine Glucose (UA) Negative (Negative) mg/dL Urine Ketones Negative (Negative) mg/dL Urine Blood Large (3+) H (Negative) Urine Nitrite Negative (Negative) Ur Leukocyte Esterase Trace H (Negative) Urine RBC >20 H (0-2) /HPF Urine WBC 11-20 H (0-5) /HPF Ur Squamous Epith Cells 6-10 (0-2) /HPF Urine Bacteria None Seen (None Seen) Hyaline Casts 6-10 (0-2) /LPF Urine Yeast Present Urine Test NEGATIVE (NEGATIVE) Fld Lyme DNA (PCR) CSF Tube Number 2 CSF Volume ML CSF Appearance CSF Color CSF WBC MM*3 CSF RBC MM*3 CSF Appearance (b) CSF Glucose mg/dL CSF Total Protein (15-45) mg/dL CSF C.neoform/gat PCR (Not Detect.) CSF CMV DNA (PCR) (Not Detect.) CSF Enterovirus (PCR) (Not Detect.) CSF E. coli K1 (PCR) (Not Detect.) CSF H. influenzae (PCR) (Not Detect.) CSF HSV I (PCR) (Not Detect.) CSF HSV II (PCR) (Not Detect.) CSF HHV 6 (PCR) (Not Detect.) CSF L.monocytogenes PCR (Not Detect.) CSF N. meningitidis PCR (Not Detect.) CSF Parechovirus (PCR) (Not Detect.) CSF S. agalactiae (PCR) (Not Detect.) CSF S. pneumoniae (PCR) (Not Detect.) CSF VZV (PCR) (Not Detect.) Lyme Disease DNA (PCR) (NOT DETECTED) Influenza Type A (PCR) NEGATIVE (Negative) Influenza Type B (PCR) NEGATIVE (Negative) RSV RNA Qual (PCR) NEGATIVE (Negative) SARS-CoV-2 RNA (RT-PCR) NEGATIVE (Negative) 11/05/23 Range/Units 22:37 WBC (4.8-10.8) X10*3/uL RBC (4.20-5.50) X10*6/uL Hgb (12.0-16.0) g/dl Hct (37.0-47.0) % MCV (80.0-98.0) fL MCH (27.0-33.0) pg MCHC (31.0-35.0) g/dl RDW (11.0-16.0) % Plt Count (160-400) X10*3/uL MPV (9.4-12.3) fL Immature Gran % (Auto) (0.0-0.4) % Neut % (Auto) (45-73) % Lymph % (Auto) (20-40) % Lyman % (Auto) (2-11) % Eos % (Auto) (0-4) % Baso % (Auto) (0-2) % Lymph # (Auto) (1.2-4.9) X10*3/uL Lyman # (Auto) (0.1-1.2) X10*3/uL Eos # (Auto) (0.0-0.4) X10*3/uL Baso # (Auto) (0.0-0.2) X10*3/uL Abs Immat Gran (auto) (0.00-0.03) X10*3/uL Absolute Neuts (auto) (2.0-8.3) x10*3/uL Absolute Nucleated RBC (0.0-0.012) X10*3/uL Nucleated RBC % (auto) (0.0-0.2) /100WBC Sodium (135-145) mmol/L Potassium (3.3-5.1) mmol/L Chloride (96-108) mmol/L Carbon Dioxide (22-29) mmol/L Anion Gap (12-20) BUN (9-16) mg/dL Creatinine (0.5-1.4) mg/dL Estim Creat Clear Calc Estimated GFR Random Glucose (60-115) mg/dL Lactic Acid (0.5-2.0) mmol/L Calcium (8.4-10.2) mg/dL Magnesium (1.6-2.6) mg/dL Total Bilirubin (0.0-1.0) mg/dL Direct Bilirubin (0.0-0.5) mg/dL AST (5-31) U/L ALT (0-31) U/L Alkaline Phosphatase (39-117) U/L Total Protein (6.5-8.0) g/dL Albumin (3.5-5.0) g/dL Lipase (8-78) U/L Beta HCG, Quant mIU/mL Urine Color Urine Appearance Urine pH (5.0-9.0) Ur Specific Proctor (1.005-1.025) Urine Protein (Neg-Trace) mg/dL Urine Glucose (UA) (Negative) mg/dL Urine Ketones (Negative) mg/dL Urine Blood (Negative) Urine Nitrite (Negative) Ur Leukocyte Esterase (Negative) Urine RBC (0-2) /HPF Urine WBC (0-5) /HPF Ur Squamous Epith Cells (0-2) /HPF Urine Bacteria (None Seen) Hyaline Casts (0-2) /LPF Urine Yeast Urine Test (NEGATIVE) Fld Lyme DNA (PCR) CSF Tube Number 4 CSF Volume 3.0 ML CSF Appearance CLEAR CSF Color COLORLESS CSF WBC 0 MM*3 CSF RBC 0 MM*3 CSF Appearance (b) Clear, Colorless CSF Glucose 56 mg/dL CSF Total Protein 16.3 (15-45) mg/dL CSF C.neoform/gat PCR Not Detected (Not Detect.) CSF CMV DNA (PCR) Not Detected (Not Detect.) CSF Enterovirus (PCR) Not Detected (Not Detect.) CSF E. coli K1 (PCR) Not Detected (Not Detect.) CSF H. influenzae (PCR) Not Detected (Not Detect.) CSF HSV I (PCR) Not Detected (Not Detect.) CSF HSV II (PCR) Not Detected (Not Detect.) CSF HHV 6 (PCR) Not Detected (Not Detect.) CSF L.monocytogenes PCR Not Detected (Not Detect.) CSF N. meningitidis PCR Not Detected (Not Detect.) CSF Parechovirus (PCR) Not Detected (Not Detect.) CSF S. agalactiae (PCR) Not Detected (Not Detect.) CSF S. pneumoniae (PCR) Not Detected (Not Detect.) CSF VZV (PCR) Not Detected (Not Detect.) Lyme Disease DNA (PCR) NOT DETECTED (NOT DETECTED) Influenza Type A (PCR) (Negative) Influenza Type B (PCR) (Negative) RSV RNA Qual (PCR) (Negative) SARS-CoV-2 RNA (RT-PCR) (Negative) Radiology Impression Discussion of test interpretation with radiology: I have reviewed the radiologist's reading. Radiologist Impression: CT/CT head/brain wo IV con IMPRESSION: 1. No acute intracranial pathology. 2. Small amount of fluid in left mastoid air cells. Noncontrast CT scan of the cervical spine. IMPRESSION: 1. No acute visible fracture or dislocation. 2. Straightening of normal cervical curvature which may be secondary to patient positioning versus muscle spasm. Dictated By: Elizabeth Husain MD Critical Care Time Critical Care Time Critical Care Time: Yes Total Critical Care Time: 45 Attestation: Critical Care: The patient was critically ill with a high probability of imminent or life threatening deterioration. I spent greater than 30 minutes of discontinuous time evaluating the patient,delivering critical care at the bedside, discussing and evaluating pertinent data with consultants. Critical care time does not include time spent performing separately billable procedures or teaching. Total time spent performing critical care was 45 minutes. Discharge Plan Discharge Clinical Impression: Viral syndrome, Headache Patient Disposition: Home, Self-Care Instructions: Acute Headache (ED), Viral Syndrome (ED) Additional Instructions: The CT scan of your head and cervical spine was negative. Your blood work was unremarkable. The cerebral spinal fluid (CSF) was normal. You had no white blood cells or red blood cells. Your total protein and glucose was normal. Your meningitis/encephalitis PCR panel was negative for common bacteria and viruses that can cause meningitis. I am going to treat your headache and your neck pain with the following medications. Take the following 3 medications together every 6 hours as needed for headache, nausea or vomiting. ? Reglan (metoclopramide) in 10 mg, 1 pill Benadryl 25 mg, 2 pills Excedrin migraine, 2 pills. After you take these medications, lie down in a dark quiet room and try to fall asleep. ?These medications will make you sleepy, do not drive or work after taking these medications. Follow-up with your doctor in 2 days. Continue taking your Flexeril (cyclobenzaprine) as prescribed by your PCP Keep your neurology appointment today. Please return to the emergency department if your symptoms get worse or if you develop any symptoms that are concerning to you. Your urine culture from your 1st visit to the emergency department did not grow any bacteria therefore you do not have a urine infection. Stop taking your antibiotic. Prescriptions: New diphenhydramine HCl 25 mg capsule 50 mg PO Q6H PRN (Reason: headache, nausea, vomiting) Qty: 20 0RF No Action neyokmfryzxp-levikldo-kfghca Tablet 1 tab PO DAILY topiramate 50 mg tablet 50 mg PO BID sumatriptan succinate 50 mg tablet 50 mg PO PRN Interventions: ED Discharge Assessment Last Done: 11/06/23 02:35 Discharge Date/Time: 11/06/23 02:37 Print Language: Sammarinese
[2023-11-05 17:33] LABS: MANUAL DIFF FLAG NO
[2023-11-05 17:34] LABS: Basophils Percent Auto 0.4 % (0-2); Eosinophils Absolute Auto 0.1 X10*3/uL (0.0-0.4); Eosinophils Percent Auto 1.2 % (0-4); Hematocrit 33.5 % (37.0-47.0); Hemoglobin 10.3 g/dl (12.0-16.0); Imm Gran Abs Auto 0.04 X10*3/uL (0.00-0.03); Imm Gran Pct Auto 0.6 % (0.0-0.4); Lymphocytes Absolute Auto 1.6 X10*3/uL (1.2-4.9); Lymphocytes Percent Auto 23.1 % (20-40); Mean Corpuscular HGB Conc 30.7 g/dl (31.0-35.0); Mean Corpuscular Hemoglobin 26.3 pg (27.0-33.0); Mean Corpuscular Volume 85.5 fL (80.0-98.0); Mean Platelet Volume 10.1 fL (9.4-12.3); Monocytes Absolute Auto 0.5 X10*3/uL (0.1-1.2); Monocytes Percent Auto 6.6 % (2-11); Neutrophils Absolute Auto 4.7 x10*3/uL (2.0-8.3); Neutrophils Percent Auto 68.1 % (45-73); Platelet Count 360 X10*3/uL (160-400); Red Blood Count 3.92 X10*6/uL (4.20-5.50); Red Cell Distribution Width 13.9 % (11.0-16.0); White Blood Count 6.8 X10*3/uL (4.8-10.8)
[2023-11-05 17:52] LABS: Alanine Aminotransferase 30 U/L (0-31); Alkaline Phosphatase 142 U/L (39-117); Anion Gap 9 (12-20); Aspartate Amino Transferase 16 U/L (5-31); Bilirubin Direct < 0.2 mg/dL (0.0-0.5); Bilirubin Total 0.2 mg/dL (0.0-1.0); Blood Urea Nitrogen 8 mg/dL (9-16); Calcium 9.6 mg/dL (8.4-10.2); Carbon Dioxide 27 mmol/L (22-29); Chloride 106 mmol/L (96-108); Creatinine Clr Calc Pharmacy 102.3; Estimated Glomerular Filt Rate > 60; Glucose Random 98 mg/dL (60-115); Lipase 26 U/L (8-78); Potassium 3.9 mmol/L (3.3-5.1); Sodium 138 mmol/L (135-145); Total Protein 7.7 g/dL (6.5-8.0)
[2023-11-05 18:11] LABS: Influenza A PCR NEGATIVE (Negative); Influenza B PCR NEGATIVE (Negative); Resp Syncy Virus RNA Qual PCR NEGATIVE (Negative); SARS COV2 PCR INHOUSE NEGATIVE (Negative)
[2023-11-05 18:28] VITALS: BP 134/81; PULSE 70; RESP 16; TEMP 36.1; O2SAT 100
[2023-11-05] MEDS: Acetaminophen 325 MG TABLET 975 MG PO (19:00)
[2023-11-05 19:56] LABS: HCG Quantitative < 2 mIU/mL
[2023-11-05 20:22] VITALS: BP 140/99; PULSE 70; RESP 16; TEMP 36.8; O2SAT 100
[2023-11-05 20:39] VITALS: BP 121/83; PULSE 77; RESP 17; TEMP 36.4; O2SAT 100
--- NOTE | 2023-11-05 22:02 | PC.NURSE ---
MD feldman at bedside, plan is to rule out viral meningitis- pt to have lumbar puncture, pt to be transferred to ED-7, Report given to MARION Rasmussen
[2023-11-05 22:20] LABS: Appearance Urine Cloudy; Color Urine Yellow; Glucose Urine UA Negative (Negative); Leukocyte Esterase Urine Trace (Negative); Nitrite Urine Negative (Negative); UMIC TRIGGER UACC YES; Urine Blood Large (3+) (Negative); Urine Ketones Negative (Negative); Urine Protein 100 (2+) mg/dL (Neg-Trace)
[2023-11-05 22:21] LABS: UPreg QC Valid YES; Urine Pregnancy NEGATIVE (NEGATIVE)
[2023-11-05 22:25] LABS: Lactic Acid 0.8 mmol/L (0.5-2.0)
[2023-11-05 22:34] LABS: Bacteria Urine None Seen (None Seen); RBC Urine >20 /HPF (0-2); UACC Culture Trigger YES
[2023-11-05 22:39] VITALS: BP 133/82; PULSE 62; RESP 14; TEMP 36.3; O2SAT 100
[2023-11-05] MEDS: Ketorolac Tromethamine 15 MG/ML VIAL IVPUSH (22:59)
[2023-11-05] MEDS: diphenhydrAMINE HCL 50 MG/ML VIAL IVPUSH (22:59)
[2023-11-05] MEDS: Metoclopramide HCl 10 MG/2 ML VIAL IVPUSH (22:59)
[2023-11-05] MEDS: 0.9 % Sodium Chloride 1,000 ML 999 ML IV (23:00)
[2023-11-05 23:11] LABS: Appearance CSF CLEAR; CSF Tube # 4; Color CSF COLORLESS
[2023-11-05 23:14] LABS: Glucose CSF 56 mg/dL; Total Protein CSF 16.3 mg/dL (15-45)
[2023-11-05 23:16] LABS: CSF Appearance Clear, Colorless; CSF Tube # 2
[2023-11-05 23:23] LABS: Red Blood Cell CSF 0 MM*3; White Blood Cell CSF 0 MM*3
[2023-11-06 00:24] VITALS: BP 118/74; PULSE 73; RESP 15; TEMP 36.8; O2SAT 99
[2023-11-06 00:32] LABS: Cryptococcus neoformans/gattii Not Detected (Not Detect.); Enterovirus Not Detected (Not Detect.); Escherichia coli K1 Not Detected (Not Detect.); Haemophilus influenzae Not Detected (Not Detect.); Herpes simplex virus 1 Not Detected (Not Detect.); Herpes simplex virus 2 Not Detected (Not Detect.); Human herpesvirus 6 Not Detected (Not Detect.); Human parechovirus Not Detected (Not Detect.); Listeria monocytogenes Not Detected (Not Detect.); Neisseria meningitidis Not Detected (Not Detect.); Streptococcus agalactiae Not Detected (Not Detect.); Streptococcus pneumoniae Not Detected (Not Detect.); Varicella zoster virus Not Detected (Not Detect.)
[2023-11-09 01:44] LABS: Lyme (B. burgdorferi) PCR NOT DETECTED (NOT DETECTED)
== END 2023-11-06 02:37 | disposition home or self-care (01) ==
PROVIDERS: Physician Assistant Medical; Emergency Provider Emergency Medicine Emergency Medical Services; PCP Internal Medicine
DX: B34.9 Viral infection, unspecified (principal); R51.9 Headache, unspecified; M43.6 Torticollis; Z11.52 Encounter for screening for COVID-19; Z20.828 Contact with and (suspected) exposure to other viral communicable diseases
CPT/HCPCS: 0241U; 36415; 62270; 70450; 72125; 80053; 81001; 81025; 82248; 82945; 83605; 83690; 83735; 84157; 84702; 85025; 87015; 87040; 87070; 87086; 87205; 87476; 87483; 89051; 96374; 96375; 99284; J1200; J1885; J2765

== ENCOUNTER 2023-11-14 16:20 | Outpatient (AMB) | payer OTHER, SELFPAY ==
--- NOTE | 2023-11-14 16:27 | HO.NEPHOV ---
HPI HPI Comments History of Present Illness Details 33-year-old female with no significant past medical history who recently presented to emergency room for dark urine. She travelled to [place] on , 10/26/2023 and became sick the next day while she was in [place]. She developed subjective fever, chills, sweats, nausea, vomiting and diarrhea. She returned to [place] on Sunday10/30/2023 and still was feeling sick therefore she came to the emergency department on 10/31/2023. At the time of the ER evaluation she did complain of dark urine. There was a concerned that she may have rhabdomyolysis versus urinary tract infection. She was given ceftriaxone 1 g IV and was started on cefuroxime 500 mg twice a day for 7 days. Urinalysis grew less than 10,000 colony-forming units of Croynebacterium sp. She again presented for evaluation of viral-like symptoms and a stiff neck with subjective fever, chills, rhinorrhea, cough, nausea without vomiting or diarrhea. She denied frequency, urgency or dysuria. She states that for the past 3 days prior to second ER presentation, she has had a very stiff neck which is gotten progressively worse. She was started her on Flexeril which did not help her pain or neck stiffness. Her renal functions have been normal. She continues to have microscopic hematuria as well as questionable proteinuria. She is currently being seen in the office in consultation for evaluation. She has history of taking Topamax. She denies flank pain, passing grit or gravel in the urine. She has no pedal edema. She has no epistaxis, hemoptysis, macroscopic hematuria, hematemesis or melena. She has no hearing deficits. [facility] Medical History (Updated 11/14/23 @ 17:02 by Krishna Gil MD) H/O abnormal cervical Papanicolaou smear Dysplasia of cervix, low grade (OANH 1) LGSIL (low grade squamous intraepithelial dysplasia) Pre-conception counseling Well woman exam with routine gynecological exam Surgical History (Updated 11/14/23 @ 16:37 by Rosalie Barcenas MA) History of laparoscopy Family History Paternal Grandmother History of breast cancer Colon cancer Social History Household Members: Children Household Members Other:: daughter Alcohol intake: current Alcohol intake frequency: a few times a month Patient Tobacco Use Status: Never used Tobacco 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[employer] Female Reproductive History Menstrual Age of Menarche: 12 Vital Signs 11/14/23 16:29 Height 5 ft 7 in Weight 155 lb 8 oz BMI 24.4 BP 122/70 Blood Pressure Location Lt brachial Position Sitting Pulse 91 Pulse Source Pulse Oximeter Pulse Oximetry (%) 93 Oxygen Delivery Method Room Air Physical Exam Vital Signs: Last Vital Signs Pulse 91 11/14/23 16:29 BP 122/70 11/14/23 16:29 Pulse Ox 93 11/14/23 16:29 Oxygen Delivery Method Room Air 11/14/23 16:29 BMI result Body Mass Index 24.4 Const General: comfortable and no acute distress Orientation/consciousness: patient oriented x3 HEENT Head: Yes normocephalic Mouth: Normal oral and palatal mucosa present Eyes EOM: EOMs intact bilaterally Neck Neck: Yes supple Resp Auscultation: clear to auscultation bilaterally Cardio Jugular venous distension: no JVD Rate: regular rate GI Palpation (GI): Soft to palpation Auscultation: normal bowel sounds General: Yes no CVA tenderness Back/Spine/Pelvis Back: no CVA tenderness Skin General skin exam: no rashes or lesions noted Neuro General: patient oriented x3 and moves all extremities Extrem General: Yes no pedal edema Assessment & Plan Assessment & Plan (1) Proteinuria: Code(s): R80.9 - Proteinuria, unspecified Qualifiers: Proteinuria type: other Qualified Code(s): R80.8 - Other proteinuria (2) Hematuria: Code(s): R31.9 - Hematuria, unspecified Qualifiers: Hematuria type: gross Qualified Code(s): R31.0 - Gross hematuria Plan María has microscopic hematuria with questionable proteinuria. Her renal functions are normal. Her blood pressure is normal as well. Differential diagnosis are quite broad. Possibilities have been discussed and workup has been ordered. Depending on evolving data, determination regarding the need for renal biopsy will be decided. I did not make any medication changes today. She was encouraged to maintain good hydration. More than 50% time spent discussing all these in extensive detail. Answered all questions. Follow-up appointment given. Orders: Orders UA and rflx microscopic 11/14/23 R80.9 - Proteinuria, unspecified, R31.9 - Hematuria, unspecified Hepatitis B Surface Antigen 11/14/23 R80.9 - Proteinuria, unspecified, R31.9 - Hematuria, unspecified Hepatitis C Antibody Reflex 11/14/23 R80.9 - Proteinuria, unspecified, R31.9 - Hematuria, unspecified Proteinase 3 PR3 Antibodies 11/14/23 R80.9 - Proteinuria, unspecified, R31.9 - Hematuria, unspecified Complement C3 11/14/23 R80.9 - Proteinuria, unspecified, R31.9 - Hematuria, unspecified Streptolysin O Antibody 11/14/23 R80.9 - Proteinuria, unspecified, R31.9 - Hematuria, unspecified Protein Creatinine Ratio, Ur 11/14/23 R80.9 - Proteinuria, unspecified, R31.9 - Hematuria, unspecified Protein, 24 Hr Urine Group 11/14/23 R80.9 - Proteinuria, unspecified, R31.9 - Hematuria, unspecified Hepatitis B Core Antibody 11/14/23 R80.9 - Proteinuria, unspecified, R31.9 - Hematuria, unspecified Anti DNA DS Antibody 11/14/23 R80.9 - Proteinuria, unspecified, R31.9 - Hematuria, unspecified Myeloperoxidase Antibody 11/14/23 R80.9 - Proteinuria, unspecified, R31.9 - Hematuria, unspecified Anti Glomerular Basement Memb 11/14/23 R80.9 - Proteinuria, unspecified, R31.9 - Hematuria, unspecified Complement C4 11/14/23 R80.9 - Proteinuria, unspecified, R31.9 - Hematuria, unspecified Immunofixation Pnl, Serum 11/14/23 R80.9 - Proteinuria, unspecified, R31.9 - Hematuria, unspecified Coding Level of Care Code New Pt Level 4 (41577) Diagnoses Other proteinuria R80.8 Proteinuria type: other Hematuria R31.0 Hematuria type: gross Results Reviewed Nephrology Results: Hgb 10.3 g/dl (12.0-16.0) L 11/05/23 WBC 6.8 X10*3/uL (4.8-10.8) 11/05/23 Plt Count 360 X10*3/uL (160-400) 11/05/23 Sodium 138 mmol/L (135-145) 11/05/23 Potassium 3.9 mmol/L (3.3-5.1) 11/05/23 Chloride 106 mmol/L (96-108) 11/05/23 Carbon Dioxide 27 mmol/L (22-29) 11/05/23 BUN 8 mg/dL (9-16) L 11/05/23 Creatinine 0.76 mg/dL (0.5-1.4) 11/05/23 Calcium 9.6 mg/dL (8.4-10.2) 11/05/23 Urine Protein Negative mg/dL (Neg-Trace) 12/03/23 Urine Creatinine 97.75 mg/dL 12/03/23 Protein/Creatinin Ratio 0.12 (<0.2) 12/03/23
[2023-11-14 16:29] VITALS: BP 122/70; PULSE 91; O2SAT 93; BMI 24.4
== END 2023-11-14 17:07 | disposition home or self-care (01) ==
PROVIDERS: PCP Internal Medicine; Visit Provider Internal Medicine Nephrology
DX: R80.8 Other proteinuria (principal); R31.0 Gross hematuria
CPT/HCPCS: 99204

== ENCOUNTER → 2023-11-14 16:20 | Outpatient (BNVA) | payer OTHER, SELFPAY | PROVIDERS: PCP Internal Medicine; Visit Provider Internal Medicine Nephrology ==

== ENCOUNTER 2023-12-03 10:11 | Outpatient (REF) | payer OTHER, SELFPAY ==
[2023-12-03 11:49] LABS: Appearance Urine Cloudy; Color Urine Yellow; Glucose Urine UA Negative (Negative); Leukocyte Esterase Urine Trace (Negative); Nitrite Urine Negative (Negative); PH 7.5 (5.0-9.0); Specific Gravity - Urine 1.015 (1.005-1.025); UMIC TRIGGER UA YES; Urine Blood Large (3+) (Negative); Urine Ketones Negative (Negative); Urine Protein Negative (Neg-Trace)
[2023-12-03 12:20] LABS: Bacteria Urine Trace (None Seen); Hyaline Casts Urine 0-2 /LPF (0-2); RBC Urine >20 /HPF (0-2); WBC Urine 0-5 /HPF (0-5)
[2023-12-03 12:23] LABS: Creatinine Urine 97.75 mg/dL; Protein/Creatinine Ratio, Ur 0.12 (<0.2); Total Protein Urine Random 12 mg/dL (<12)
[2023-12-03 12:23] LABS: HBc Num1 0.12 S/CO (0.00-0.79); HBsAGNum1 0.33 S/CO (0.00-0.99); Hepatitis B Core Antibody Nonreactive (Nonreactive); Hepatitis B Surface Antigen Negative (Negative); ~HepC Num1 0.09 S/CO (0.00-0.79); ~Hepatitis C Antibody Nonreactive (Nonreactive)
[2023-12-03 13:08] LABS: Creatinine, mg/dL 82.32; Protein mg/dL 9 mg/dL
[2023-12-03 13:56] LABS: Creatinine, 24Hr Urine 1.2 G/Day (1.0-2.0); Protein 24 Hr Urine 135 mg/Day (<150); Total Volume 24 Hour Urine 1500 mL
[2023-12-04 11:33] LABS: Complement C3 73 mg/dL (83-193)
[2023-12-04 19:39] LABS: Streptolysin O Antibody 121 IU/mL (<200)
[2023-12-04 19:48] LABS: Anti DNA DS Antibody <1 IU/mL; Anti Glomerular Basement Memb <1.0 AI; Myeloperoxidase Antibody <1.0 AI; Proteinase 3 PR3 Antibodies <1.0 AI
[2023-12-05 13:09] LABS: IgA 331 mg/dL (47-310); IgG 1211 mg/dL (600-1640); IgM 159 mg/dL (50-300)
== END 2023-12-03 10:12 | disposition home or self-care (01) ==
LOC: HO.LAB 10:11
PROVIDERS: PCP Internal Medicine; Visit Provider Internal Medicine Nephrology
DX: R80.9 Proteinuria, unspecified (principal); R31.9 Hematuria, unspecified
CPT/HCPCS: 36415; 81001; 82570; 82784; 83520; 84156; 86021; 86060; 86160; 86225; 86334; 86704; 86803; 87340

== ENCOUNTER 2023-12-05 16:02 | Outpatient (AMB) | payer OTHER, SELFPAY ==
[2023-12-05 16:11] VITALS: BP 118/80; PULSE 80; O2SAT 98; BMI 24.1
--- NOTE | 2023-12-05 16:11 | HO.NEPHOV ---
HPI HPI Comments History of Present Illness Details 33-year-old female with no significant past medical history who recently presented to emergency room for dark urine. She travelled to [place] on , 10/26/2023 and became sick the next day while she was in [place]. She developed subjective fever, chills, sweats, nausea, vomiting and diarrhea. She returned to [place] on Sunday10/30/2023 and still was feeling sick therefore she came to the emergency department on 10/31/2023. At the time of the ER evaluation she did complain of dark urine. There was a concerned that she may have rhabdomyolysis versus urinary tract infection. She was given ceftriaxone 1 g IV and was started on cefuroxime 500 mg twice a day for 7 days. Urinalysis grew less than 10,000 colony-forming units of Croynebacterium sp. She again presented for evaluation of viral-like symptoms and a stiff neck with subjective fever, chills, rhinorrhea, cough, nausea without vomiting or diarrhea. She denied frequency, urgency or dysuria. She states that for the past 3 days prior to second ER presentation, she has had a very stiff neck which is gotten progressively worse. She was started her on Flexeril which did not help her pain or neck stiffness. Her renal functions have been normal. She continues to have microscopic hematuria as well as questionable proteinuria. She is currently being seen in the office in consultation for evaluation. She has history of taking Topamax. She denies flank pain, passing grit or gravel in the urine. She has no pedal edema. She has no epistaxis, hemoptysis, macroscopic hematuria, hematemesis or melena. She has no hearing deficits. [facility] Medical History (Updated 12/05/23 @ 16:33 by Krishna Gil MD) H/O abnormal cervical Papanicolaou smear Dysplasia of cervix, low grade (OANH 1) LGSIL (low grade squamous intraepithelial dysplasia) Pre-conception counseling Well woman exam with routine gynecological exam Surgical History (Updated 11/14/23 @ 16:37 by Rosalie Barcenas MA) History of laparoscopy Family History Paternal Grandmother History of breast cancer Colon cancer Social History Household Members: Children Household Members Other:: daughter Alcohol intake: current Alcohol intake frequency: a few times a month Patient Tobacco Use Status: Never used Tobacco 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 Female Reproductive History Menstrual Age of Menarche: 12 Vital Signs 12/05/23 16:11 Height 5 ft 7 in Weight 154 lb 2 oz BMI 24.1 BP 118/80 Blood Pressure Location Lt brachial Position Sitting Pulse 80 Pulse Source Pulse Oximeter Pulse Oximetry (%) 98 Oxygen Delivery Method Room Air Physical Exam Const General: comfortable and no acute distress Orientation/consciousness: patient oriented x3 HEENT Head: Yes normocephalic Mouth: Normal oral and palatal mucosa present Eyes EOM: EOMs intact bilaterally Neck Neck: Yes supple Resp Auscultation: clear to auscultation bilaterally Cardio Jugular venous distension: no JVD Rate: regular rate GI Palpation (GI): Soft to palpation Auscultation: normal bowel sounds General: Yes no CVA tenderness Back/Spine/Pelvis Back: no CVA tenderness Skin General skin exam: no rashes or lesions noted Neuro General: patient oriented x3 and moves all extremities Extrem General: Yes no pedal edema Assessment & Plan Assessment & Plan (1) Microscopic hematuria: Code(s): R31.29 - Other microscopic hematuria Plan María has microscopic hematuria with questionable proteinuria. Her renal functions are normal. Her blood pressure is normal as well. 24 hour urine for protein was negative. She may have had a vasculitic process given low C3 and blood in the urine with protien before. Differential diagnosis is thin membrane disease, IgA nephropathy or [place]. C3 was low with marginally high IgA. There is no need for renal biopsy now. She has H/O endometriosis . She may need CT abdomen and cystoscopy if M/S hematuria perisists. ( Her mom has renal stones) I did not make any medication changes today. She was encouraged to maintain good hydration. More than 50% time spent discussing all these in extensive detail. Answered all questions. Follow-up appointment given. Orders: Orders Complement C3 Today R31.29 - Other microscopic hematuria Complement C4 Today R31.29 - Other microscopic hematuria Protein Creatinine Ratio, Ur Today R31.29 - Other microscopic hematuria Protein Electrophoresis, Serum Today R31.29 - Other microscopic hematuria UA and rflx microscopic Today R31.29 - Other microscopic hematuria Creatinine Today R31.29 - Other microscopic hematuria Blood Urea Nitrogen Today R31.29 - Other microscopic hematuria Electrolytes Today R31.29 - Other microscopic hematuria Coding Level of Care Code Est Pt Level 4 (34724) Diagnoses Microscopic hematuria R31. Results Reviewed Nephrology Results: Hgb 10.3 g/dl (12.0-16.0) L 11/05/23 WBC 6.8 X10*3/uL (4.8-10.8) 11/05/23 Plt Count 360 X10*3/uL (160-400) 11/05/23 Sodium 138 mmol/L (135-145) 11/05/23 Potassium 3.9 mmol/L (3.3-5.1) 11/05/23 Chloride 106 mmol/L (96-108) 11/05/23 Carbon Dioxide 27 mmol/L (22-29) 11/05/23 BUN 8 mg/dL (9-16) L 11/05/23 Creatinine 0.76 mg/dL (0.5-1.4) 11/05/23 Calcium 9.6 mg/dL (8.4-10.2) 11/05/23 Urine Protein Negative mg/dL (Neg-Trace) 12/03/23 Urine Creatinine 97.75 mg/dL 12/03/23 Protein/Creatinin Ratio 0.12 (<0.2) 12/03/23
== END 2023-12-05 16:37 | disposition home or self-care (01) ==
LOC: HO.HKA 16:02
PROVIDERS: PCP Internal Medicine; Visit Provider Internal Medicine Nephrology
DX: R31.29 Other microscopic hematuria (principal)
CPT/HCPCS: 99214

== ENCOUNTER → 2023-12-05 16:02 | Outpatient (BNVA) | payer OTHER, SELFPAY | PROVIDERS: PCP Internal Medicine; Visit Provider Internal Medicine Nephrology ==

== ENCOUNTER 2025-02-23 14:03 | Outpatient (REF) | payer OTHER, SELFPAY ==
[2025-02-23 14:39] LABS: Appearance Urine Clear; Color Urine Yellow; Glucose Urine UA Negative (Negative); Leukocyte Esterase Urine Negative (Negative); Nitrite Urine Negative (Negative); PH 6.5 (5.0-9.0); Specific Gravity - Urine 1.015 (1.005-1.025); UMIC TRIGGER UA YES; Urine Blood Large (3+) (Negative); Urine Ketones Negative (Negative); Urine Protein Negative (Neg-Trace)
[2025-02-23 14:44] LABS: Bacteria Urine None Seen (None Seen); Hyaline Casts Urine 0-2 /LPF (0-2); RBC Urine >20 /HPF (0-2); Squamous Epithelial Cell Urine 0-2 /HPF (0-2); WBC Urine 0-5 /HPF (0-5)
[2025-02-23 14:53] LABS: Anion Gap 11 (12-20); Blood Urea Nitrogen 11 mg/dL (9-16); Carbon Dioxide 21 mmol/L (22-29); Chloride 111 mmol/L (96-108); Estimated Glomerular Filt Rate > 60; Potassium 3.9 mmol/L (3.3-5.1); Sodium 139 mmol/L (135-145)
[2025-02-23 15:01] LABS: Creatinine Urine 65.26 mg/dL; Protein/Creatinine Ratio, Ur 0.14 (<0.2); Total Protein Urine Random 9 mg/dL (<12)
--- OUTSIDE RECORDS SUMMARY | 2025-02-23 15:41 | XMS_ITS | Patient Health Record ---
Author Organization [facility] [address] Address [address] [place] [address] Care Team Providers Care Residence Manager Name Role Phone Malena Alcocer Unavailable [phone] Allergies Allergen (clinical drug ingredient) Drug/Non Drug Allergy documented on EMR Reaction Allergy Type Onset Date Status Latex Latex hives Allergy Active Results Component Value Reference Range Notes NOTE Reviewed date:02/05/2025 04:46:47 PM Interpretation: Performing Lab:[facility] Deisy Obrien Notes/Report: NOTE This urine was analyzed for the presence of WBC, RBC, bacteria, casts, and other formed elements. Only those elements seen were reported. FERRITIN Reviewed date:02/05/2025 04:46:47 PM Interpretation: Performing Lab:[facility] Deisy Obrien Notes/Report: FERRITIN 5 16-154 ng/mL FOLATE, SERUM Reviewed date:02/05/2025 04:46:47 PM Interpretation: Performing Lab:[facility] Deisy Obrien Notes/Report: FOLATE, SERUM 11.0 Reference Range Low: <3.4 Borderline: 3.4-5.4 Normal: >5.4 DNA (DS) ANTIBODY Reviewed date:02/20/2025 12:08:57 PM Interpretation: Performing Lab:[facility] Deisy Obrien Notes/Report: FASTING: YES FASTING:YES DNA (DS) ANTIBODY <1 IU/mL Interpretation < or = 4 Negative 5-9 Indeterminate > or = 10 Positive COMPLEMENT COMPONENT C4C Reviewed date:02/20/2025 12:08:57 PM Interpretation: Performing Lab:[facility] [address] Notes/Report: FASTING:YES FASTING: YES COMPLEMENT COMPONENT C4C 22 15-57 mg/dL COMPLEMENT COMPONENT C3C Reviewed date:02/20/2025 12:08:57 PM Interpretation: Performing Lab:[facility] [address] Notes/Report: FASTING:YES FASTING: YES COMPLEMENT COMPONENT C3C 134 83-193 mg/dL GLOMERULAR BASEMENT MEMBRANE ANTIBODY (IGG) Reviewed date:02/20/2025 12:08:57 PM Interpretation: Performing Lab:[facility] [address] Notes/Report: FASTING:YES FASTING: YES GLOMERULAR BASEMENT MEMBRANE ANTIBODY (IGG) <1.0 Value Interpretation ----- <1.0 No Antibody Detected > or = 1.0 Antibody Detected ANTI-STREPTOLYSIN O Reviewed date:02/20/2025 12:08:57 PM Interpretation: Performing Lab:[facility] [address] Notes/Report: FASTING: YES FASTING:YES ANTI-STREPTOLYSIN O 196 <200 IU/mL URINALYSIS REFLEX Reviewed date:02/05/2025 04:46:47 PM Interpretation: Performing Lab:[facility] [address] Notes/Report: COLOR YELLOW YELLOW APPEARANCE CLEAR CLEAR SPECIFIC GRAVITY 1.017 1.001-1.035 PH 8.0 5.0-8.0 GLUCOSE NEGATIVE NEGATIVE BILIRUBIN NEGATIVE NEGATIVE KETONES NEGATIVE NEGATIVE OCCULT BLOOD 3+ NEGATIVE PROTEIN 2+ NEGATIVE NITRITE NEGATIVE NEGATIVE LEUKOCYTE ESTERASE NEGATIVE NEGATIVE WBC 0-5 < OR = 5 /HPF RBC > OR = 60 < OR = 2 /HPF SQUAMOUS EPITHELIAL CELLS 0-5 < OR = 5 /HPF BACTERIA NONE SEEN NONE SEEN /HPF HYALINE CAST NONE SEEN NONE SEEN /LPF PROTEIN, TOTAL W/CREAT, RAND OM URINE Reviewed date:02/06/2025 12:52:54 PM Interpretation: Performing Lab:[facility], [facility] eDisy Obrien Notes/Report: CREATININE, RANDOM URINE 136 20-275 mg/dL PROTEIN/CREATININE RATIO 390 24-184 mg/g crea t PROTEIN/CREATININE RATIO 0.390 0.024-0 .184 mg/mg creat PROTEIN, TOTAL, RANDOM UR 53 5-24 mg/dL IRON AND TOTAL IRON BINDING CAPACITY Reviewed date:02/05/2025 04:46:47 PM Interpretation: Performing Lab:[facility], [facility] Deisy Obrien Notes/Report: IRON, TOTAL 24 40-190 mcg/dL IRON BINDING CAPACITY 397 250-450 mc g/dL (calc) % SATURATION 6 16-45 % (calc) CHLAMYDIA/N. GONORRHOEAE RNA , TMA, UROGENITAL Reviewed date:02/02/2025 04:48:26 PM Interpretation: Performing Lab:[facility], [facility] [address] Deisy Paul Notes/Report: FASTING: YES FASTING:YES CHLAMYDIA TRACHOMATIS RNA, TMA, UROGENITAL NOT DETECTED NOT DETECTED NEISSERIA GONORRHOEAE RNA, TMA, UROGENITAL NOT DETECTED NOT DETECTED COMMENT The analytical performance characteristics of this assay, when used to test SurePath(TM) specimens have been determined by [facility]. The modifications have not been cleared or approved by the FDA. This assay has been validated pursuant to the CLIA regulations and is used for clinical purposes. For additional information, please refer to https://education.[employer].LendFriend/faq/JDA001 (This link is being provided for information/ educational purposes only.) NIALL SCREEN, IFA, W/REFL TITE R AND PATTERN Reviewed date:02/10/2025 11:42:12 AM Interpretation: Performing Lab:[facility], [facility] [address] Enarobby Mccallesteban Notes/Report: FASTING: NO FASTING:NO NIALL SCREEN, IFA NEGATIVE NEGATIVE NIALL IFA is a first line screen for detecting the presence of up to approximately 150 autoantibodies in various autoimmune diseases. A negative NIALL IFA result suggests an NIALL-associated autoimmune disease is not present at this time, but is not definitive. If there is high clinical suspicion for Sjogren's syndrome, testing for anti-SS-A/Ro antibody should be considered. Anti-Ruby-1 antibody should be considered for clinically suspected inflammatory myopathies. AC-0: Negative International Consensus on NIALL Patterns (https://doi.org/10.1515/cc ht-7942-1849) For additional information, please refer to http://education.M[employer].LendFriend/faq/CZQ252 (This link is being provided for informational/ educational purposes only.) HCG, QL, URINE Reviewed date:02/10/2025 11:42:12 AM Interpretation: Performing Lab:[facility], [facility] Enarobby Maldonado Micah Notes/Report: FASTING:NO FASTING: NO HCG, QL, URINE NEGATIVE NEGATIVE HIV 1/2 ANTIGEN/ANTIBODY,FOU RTH GENERATION W/RFL Reviewed date:02/02/2025 04:48:26 PM Interpretation: Performing Lab:[facility], [facility] Enarobby Moseschuy Notes/Report: FASTING:YES FASTING: YES HIV AG/AB, 4TH GEN NON-REACTIVE NON-REACTIVE HIV-1 antigen and HIV-1/HIV-2 antibodies were not detected. There is no laboratory evidence of HIV infection. PLEASE NOTE: This information has been disclosed to you from records whose confidentiality may be protected by state law. If your state requires such protection, then the state law prohibits you from making any further disclosure of the information without the specific written consent of the person to whom it pertains, or as otherwise permitted by law. A general authorization for the release of medical or other information is NOT sufficient for this purpose. For additional information please refer to http://23press.Melboss/faq/KFK167 (This link is being provided for informational/ educational purposes only.) The performance of this assay has not been clinically validated in patients less than 2 years old. VITAMIN D,25-OH,TOTAL,IA Reviewed date:02/02/2025 04:52:38 PM Interpretation: Performing Lab:[facility] Deisy Obrien Notes/Report: FASTING:YES FASTING: YES VITAMIN D,25-OH,TOTAL,IA 13 30-100 ng/mL Vitamin D Status 25-OH Vitamin D: Deficiency: <20 ng/mL Insufficiency: 20 - 29 ng/mL Optimal: > or = 30 ng/mL For 25-OH Vitamin D testing on patients on D2-supplementation and patients for whom quantitation of D2 and D3 fractions is required, the QuestAssureD(TM) 25-OH VIT D, (D2,D3), LC/MS/MS is recommended: order code 14265 (patients >2yrs). See Note 1 Note 1 For additional information, please refer to http://23press.Adapteva/faq/SHT186 (This link is being provided for informational/ educational purposes only.) TSH Reviewed date:02/02/2025 04:48:26 PM Interpretation: Performing Lab:[facility] Deisy Obrien Notes/Report: FASTING:YES FASTING: YES TSH 2.23 Reference Range > or = 20 Years 0.40-4.50 Ranges First trimester 0.26-2.66 Second trimester 0.55-2.73 Third trimester 0.43-2.91 VITAMIN B12 Reviewed date:02/02/2025 04:48:26 PM Interpretation: Performing Lab:[facility] Deisy Obrien Notes/Report: FASTING:YES FASTING: YES VITAMIN B12 216 366-1438 pg/mL Please Note: Although the reference range for vitamin B12 is 200-1100 pg/mL, it has been reported that between 5 and 10% of patients with values between 200 and 400 pg/mL may experience neuropsychiatric and hematologic abnormalities due to occult B12 deficiency; less than 1% of patients with values above 400 pg/mL will have symptoms. RPR (MONITOR) W/REFL TITER Reviewed date:02/02/2025 04:48:26 PM Interpretation: Performing Lab:[facility], [facility] [place] [id number] [place] [address] Micah Notes/Report: FASTING:YES FASTING: YES RPR (MONITOR) W/REFL TITER NON-REACTIVE NON-REACTIVE URINALYSIS, COMPLETE Reviewed date:02/02/2025 04:52:38 PM Interpretation: Performing Lab:[facility], [facility] [id number] Notes/Report: FASTING:YES FASTING: YES COLOR YELLOW YELLOW APPEARANCE CLOUDY CLEAR SPECIFIC GRAVITY 1.023 1.001-1.035 PH 5.5 5.0-8.0 GLUCOSE NEGATIVE NEGATIVE BILIRUBIN NEGATIVE NEGATIVE KETONES NEGATIVE NEGATIVE OCCULT BLOOD 3+ NEGATIVE PROTEIN 2+ NEGATIVE NITRITE NEGATIVE NEGATIVE LEUKOCYTE ESTERASE NEGATIVE NEGATIVE WBC 0-5 < OR = 5 /HPF RBC 10-20 < OR = 2 /HPF SQUAMOUS EPITHELIAL CELLS 0-5 < OR = 5 /HPF BACTERIA FEW NONE SEEN /HPF HYALINE CAST 10-20 NONE SEEN /LPF NOTE This urine was analyzed for the presence of WBC, RBC, bacteria, casts, and other formed elements. Only those elements seen were reported. LIPID PANEL, STANDARD Reviewed date:02/02/2025 04:52:38 PM Interpretation: Performing Lab:[facility], [facility] [place] [id number] [place] [address] [place] Notes/Report: FASTING:YES FASTING: YES CHOLESTEROL, TOTAL 191 <200 mg/dL HDL CHOLESTEROL 56 > OR = 50 mg/dL TRIGLYCERIDES 51 <150 mg/dL LDL-CHOLESTEROL 121 Reference range: <100 Desirable range <100 mg/dL for primary prevention; <70 mg/dL for patients with CHD or diabetic patients with > or = 2 CHD risk factors. LDL-C is now calculated using the Galileo-Christensen calculation, which is a validated novel method providing better accuracy than the Friedewald equation in the estimation of LDL-C. Galileo SS et al. KENNETH. 2013;310(19): 7746-3422 (http://education.Manicube.com/faq/INI638) CHOL/HDLC RATIO 3.4 <5.0 (calc) NON HDL CHOLESTEROL 135 <130 mg/dL (calc) For patients with diabetes plus 1 major ASCVD risk factor, treating to a non-HDL-C goal of <100 mg/dL (LDL-C of <70 mg/dL) is considered a therapeutic option. HEMOGLOBIN A1c Reviewed date:02/02/2025 04:48:26 PM Interpretation: Performing Lab:[facility], [facility] Deisy Obrien Notes/Report: FASTING:YES FASTING: YES HEMOGLOBIN A1c 5.5 <5.7 % For the purpose of screening for the presence of diabetes: <5.7% Consistent with the absence of diabetes 5.7-6.4% Consistent with increased risk for diabetes (prediabetes) > or =6.5% Consistent with diabetes This assay result is consistent with a decreased risk of diabetes. Currently, no consensus exists regarding use of hemoglobin A1c for diagnosis of diabetes in children. According to [place] Diabetes Association (ADA) guidelines, hemoglobin A1c <7.0% represents optimal control in non- diabetic patients. Different metrics may apply to specific patient populations. Standards of Medical Care in Diabetes(ADA). CBC (INCLUDES DIFF/PLT) Reviewed date:02/02/2025 04:52:38 PM Interpretation: Performing Lab:[facility], [facility] Deisy Obrien Notes/Report: FASTING:YES FASTING: YES WHITE BLOOD CELL COUNT 6.4 3.8-10.8 Thousand/ uL RED BLOOD CELL COUNT 4.12 3.80-5.10 Million/uL HEMOGLOBIN 10.5 11.7-15.5 g/dL HEMATOCRIT 34.3 35.0-45.0 % MCV 83.3 80.0-100.0 fL MCH 25.5 27.0-33.0 pg MCHC 30.6 32.0-36.0 g/dL For adults, a slight decrease in the calculated MCHC value (in the range of 30 to 32 g/dL) is most likely not clinically significant; however, it should be interpreted with caution in correlation with other red cell parameters and the patient's clinical condition. RDW 13.8 11.0-15.0 % PLATELET COUNT 311 140-400 Thousand/uL MPV 11.2 7.5-12.5 fL ABSOLUTE NEUTROPHILS 4173 4779-4756 cells/uL ABSOLUTE LYMPHOCYTES 7803 569-2739 cells/uL ABSOLUTE MONOCYTES 435 200-950 cells/uL ABSOLUTE EOSINOPHILS 38 15-500 cells/uL ABSOLUTE BASOPHILS 32 0-200 cells/uL NEUTROPHILS 65.2 LYMPHOCYTES 26.9 MONOCYTES 6.8 EOSINOPHILS 0.6 BASOPHILS 0.[address] METABOLIC PANE L Reviewed date:02/02/2025 04:48:26 PM Interpretation: Performing Lab:[facility], [facility] [address] [place], [place] [id number] Deisy Obrien Notes/Report: FASTING:YES FASTING: YES GLUCOSE 85 65-99 mg/dL Fasting reference interval UREA NITROGEN (BUN) 11 7-25 mg/dL CREATININE 0.61 0.50-0.97 mg/dL EGFR 120 > OR = 60 mL/min/1.73m2 BUN/CREATININE RATIO SEE NOTE: 6-22 (calc) Not Reported: BUN and Creatinine are within reference range. SODIUM 136 135-146 mmol/L POTASSIUM 4.5 3.5-5.3 mmol/L CHLORIDE 104 98-110 mmol/L CARBON DIOXIDE 24 20-32 mmol/L CALCIUM 9.1 8.6-10.2 mg/dL PROTEIN, TOTAL 7.0 6.1-8.1 g/dL ALBUMIN 4.3 3.6-5.1 g/dL GLOBULIN 2.7 1.9-3.7 g/dL (calc) ALBUMIN/GLOBULIN RATIO 1.6 1.0-2.5 (calc) BILIRUBIN, TOTAL 0.4 0.2-1.2 mg/dL ALKALINE PHOSPHATASE 117 31-125 U/L AST 25 10-30 U/L ALT 21 6-29 U/L Reason For Referral No Information Medications Medication SIG (Take, Route, Frequency, Duration) Notes Start Date End Date Status Cholecalciferol 25 MCG (1000 UT) 1 capsule Orally Once a day for 30 days 02/02/2025 Active Triamcinolone Acetonide 0.025 % 1 application Externally Twice a day for 14 days 01/30/2025 Active Amoxicillin 500 MG 1 capsule Orally twi ce a day for 10 days 02/05/2025 Active Iron (Ferrous Sulfate) 325 (65 Fe) MG 1 tablet Orally daily for 90 days 02/05/2025 Active Tretinoin 0.05 % 1 application in the evening to face Externally Once a day for 30 days 02/10/2025 Active SUMAtriptan Succinate 50 MG Oral for 30 Days Active Multi Vitamin Active Emgality 120 MG/ML as directed Subcutaneous 2024 Active Topiramate 100 MG 1 tablet Orally twic e a day for 30 days Active Problems Problem Type SNOMED Code ICD Code Onset Dates Problem Status W/U Status Risk Notes Problem Vitamin B>12< deficiency anaemia (47246151) Anemia due to vitamin B12 deficiency, unspecified B12 deficiency type (D51.9) Active confirmed Problem Avitaminosis D (29862137) Avitaminosis D (E55.9) Active confirmed Problem 798195077 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) Active confirmed Problem Autoimmune disease (84941546) Autoimmune disease (M35.9) Active confirmed Problem Anemia (894373907) Anemia (D64.9) Active confirmed Problem Atopic dermatitis (97701576) Atopic dermatitis, mild (L20.9) Active confirmed Problem Migraine (09414096) Migraine syndrome (G43.909) Active confirmed Vital Signs Heart Rate 80 /min 02/13/2025 Oximetry 97 % 02/13/2025 Blood pressure diastolic 82 mm Hg 02/13/2025 Height 67 in 02/13/2025 Blood pressure systolic 124 mm Hg 02/13/2025 Weight 161.7 lbs 02/13/2025 BMI 25.32 kg/m2 02/13/2025 Encounters Encounter Location Date Provider Diagnosis [facility] [address] [place] [id number] 02/13/2025 Malena Alcocer Annual physical exam Z00.00 ; Migraine syndrome G43.909 ; Proteinuria, unspecified type R80.9 ; Avitaminosis D E55.9 ; Iron deficiency anemia secondary to inadequate dietary iron intake D50.8 ; Strep pharyngitis J02.0 ; Unspecified blepharitis right eye, upper and lower eyelids H01.00A ; Unspecified blepharitis left eye, upper and lower eyelids H01.00B ; Encounter for examination of blood pressure without abnormal findings Z01.30 and Hyperpigmentation of skin L81.9 [facility] [address] [address] 01/30/2025 Malena Normoyle Sore throat J02.9 ; Migraine syndrome G43.909 ; Atopic dermatitis, mild L20.9 ; Hyperpigmentation L81.9 ; Unprotected sex Z72.51 ; Abnormal vaginal Pap smear R87.629 ; Encounter for examination of blood pressure without abnormal findings Z01.30 and Unprotected sexual intercourse Z72.51 [facility] [address] [address] 01/30/2025 Malena Normoyle [facility] [address] 02/02/2025 Malena Normoyle [facility] [address] 02/02/2025 Malena Normoyle Abnormal urine R82.9 0 ; Generalized rash R21 and Anemia D64.9 [facility] [address] 02/05/2025 Malena Normoyle [facility] [address] 02/05/2025 Malena Normoyle Unprotected sex Z72. 51 and Autoimmune disease M35.9 [facility] [address] 02/05/2025 Malena Normoyle [facility] [address] [address] 02/10/2025 Malena Normoyle [facility] [address] 02/16/2025 Malena Normoyle Assessments Encounter Date Diagnosis (ICD Code) Assessment Notes Treatment Notes Treatment Clinical Notes Section Notes 01/30/2025 Sore throat (ICD-10 - J02.9) Patient is welcomed to the practice. They are coming from [place] [facility]. Last complete physical exam with labs 2022. Medications, medical history, allergies, surgeries, hospitalizations, family history, and social history were reviewed. Problem list updated. Cardiopulmonary and abdominal exam unremarkable. Patient will follow-up in office. All patient questions answered at this time. #Health maintenance: Most recent Pap smear was 2021 and was normal, however, patient has a history of abnormal requiring biopsy in 2020. Will request records from [facility]. Patient encouraged to call [facility] for appointment. She has 2 COVID shots, declines influenza, she is unsure when her last Tdap was, will request records today. #Migraines: Patient has been struggling with migraines for most of her life. She follows with neurology in [place], most recently this year, will request records. She is taking topiramate 100 mg twice daily, sumatriptan 50 mg as needed, and recently started Emgality and has had 2 injections. She reports since starting Emgality, she has not needed any sumatriptan and states her migraines have been more well-controlled. Continue current regimen. 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 On exam today, no erythema, scaling, discharge, conjunctival injection. Will monitor. #Atopic dermatitis: Patient with scaling rash to right side of her back, pruritic, darker in color than skin pigmentation. Most likely atopic dermatitis. Plan to start triamcinolone ointment daily. Encouraged to call the office if rash worsens. #Pharyngitis: Patient reports a sore throat that has been gradually improving, strep swab today is negative. Likely viral, continue supportive measures with teas and soups, Tylenol as needed. Encouraged to call the office if symptoms worsen. #STD panel: Patient requesting STD panel due to unprotected sex recently. Denies symptoms today. Chlamydia, gonorrhea, HIV, syphilis testing ordered today. #Facial hyperpigmentation: She has been using ujfh-cvy-hixytmt products without relief, has been seeing an community health consultant. Patient requesting tretinoin today, plan to send test and start tretinoin if test is negative. Total time spent today was 60 minutes of which greater than 50% was spent on coordinating and counseling All questions have been answered to patient's satisfaction. Patient verbalized understanding of diagnosis and treatments explained. Advised to call sooner prior to next visit it any questions/concerns arise. Case discussed with collaborating physician Roz Milner who reviewed the assessment and plan. Chart, medications, labs, vital signs reviewed. Dictation was accomplished with the use of [employer] voice recognition software, which is prone to medical misidentifications and grammatical errors. This are unintentional and the practitioner does try to identify and correct these, but some could still be present. Please do not hesitate to contact practitioner for clarification. 01/30/2025 Migraine syndrome (ICD-10 - G43.909) Patient is welcomed to the practice. They are coming from [place] [facility]. Last complete physical exam with labs 2022. Medications, medical history, allergies, surgeries, hospitalizations, family history, and social history were reviewed. Problem list updated. Cardiopulmonary and abdominal exam unremarkable. Patient will follow-up in office. All patient questions answered at this time. #Health maintenance: Most recent Pap smear was 2021 and was normal, however, patient has a history of abnormal requiring biopsy in 2020. Will request records from [facility]. Patient encouraged to call [facility] for appointment. She has 2 COVID shots, declines influenza, she is unsure when her last Tdap was, will request records today. #Migraines: Patient has been struggling with migraines for most of her life. She follows with neurology in [place], most recently this year, will request records. She is taking topiramate 100 mg twice daily, sumatriptan 50 mg as needed, and recently started Emgality and has had 2 injections. She reports since starting Emgality, she has not needed any sumatriptan and states her migraines have been more well-controlled. Continue current regimen. 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 On exam today, no erythema, scaling, discharge, conjunctival injection. Will monitor. #Atopic dermatitis: Patient with scaling rash to right side of her back, pruritic, darker in color than skin pigmentation. Most likely atopic dermatitis. Plan to start triamcinolone ointment daily. Encouraged to call the office if rash worsens. #Pharyngitis: Patient reports a sore throat that has been gradually improving, strep swab today is negative. Likely viral, continue supportive measures with teas and soups, Tylenol as needed. Encouraged to call the office if symptoms worsen. #STD panel: Patient requesting STD panel due to unprotected sex recently. Denies symptoms today. Chlamydia, gonorrhea, HIV, syphilis testing ordered today. #Facial hyperpigmentation: She has been using ypur-vwp-xzkbnyu products without relief, has been seeing an community health consultant. Patient requesting tretinoin today, plan to send test and start tretinoin if test is negative. Total time spent today was 60 minutes of which greater than 50% was spent on coordinating and counseling All questions have been answered to patient's satisfaction. Patient verbalized understanding of diagnosis and treatments explained. Advised to call sooner prior to next visit it any questions/concerns arise. Case discussed with collaborating physician Roz Milner who reviewed the assessment and plan. Chart, medications, labs, vital signs reviewed. Dictation was accomplished with the use of [employer] voice recognition software, which is prone to medical misidentifications and grammatical errors. This are unintentional and the practitioner does try to identify and correct these, but some could still be present. Please do not hesitate to contact practitioner for clarification. 02/02/2025 Abnormal urine (ICD-10 - R82.90) 02/05/2025 Unprotected sex (ICD-10 - Z72.51) 02/13/2025 Annual physical exam (ICD-10 - Z00.00) María is a 34-year-old female with past medical history of migraines, blepharitis of bilateral eyes who presents for physical exam. #Health maintenance: Declines flu shot, COVID-vaccine 2020, Tdap 2022. Most recent Pap smear 11/2023. Upcoming appointment with [facility] 04/2025. PHQ-9 is 2, HCP filled out today, scanned in chart. #Migraines: Follows with neurology at [facility], on average every 6 months. She recently started Emgality and reports significant relief in symptoms. Continue Emgality, along with sumatriptan 50 mg as needed, topiramate 100 mg twice daily. #Blepharitis: On exam, no crusting, discoloration, edema. Continue following with [facility]. #Iron deficiency anemia: On labs obtained 01/30/2025, CBC shows hemoglobin 10.5, hematocrit 35.3, ferritin level of 5, total iron 24, percent saturation 6. Continue iron supplementation daily. Encouraged to take this with vitamin C for better absorption. #Vitamin D deficiency: 01/30/2025, vitamin D was 13. Continue with supplementation. #Proteinuria/hematur ia: Urinalysis 01/30/2025 shows cloudy urine, 3+ occult blood, 2+ protein, 10-20 RBC, 10-20 hyaline casts. Repeat urinalysis shows 3+ occult blood, 2+ protein, over 60 RBCs. Protein to creatinine ratio was 398, protein total 53. NIALL negative. CMP showed creatinine and BUN within normal limits, patient denies any urinary symptoms. Plan for bilateral kidney and bladder ultrasound. Plan for labs including C3 complement, C4 complement, antistreptolysin O antibody, antiglomerular basement antibody, anti-DNA Ds antibody. Patient offered nephrology referral, however, she states she does not need a referral due to her insurance, and she will call [facility]. #Facial hyperpigmentation: Continue tretinoin once daily at bedtime. Urine test was negative. #Pharyngitis: Patient was exposed to strep, and a few days later developed erythematous sore throat. Today, symptoms have been improving as she has been on amoxicillin. Continue course of amoxicillin. Follow-up in 3 months. Patient seen and examined. Comprehensive discussion was done on the following. 1. Nutrition: It is important to follow a healthy diet based on lots of vegetables and legumes and good fat. Avoid processed food and processed carbohydrates. Prepare your own meals. Read labels and avoid high fructose corn syrup, processed chemicals added to increase shelf life and preprepared meals. Avoid fast foods. Eat slowly and plan meals for a week. Try to count calories and be mindful off daily calorie intake. Get into the habit of keeping an eye on your weight by using an appropriate scale. Learn to log exercise and discussed fitness Apps like [employer] or E-Ductionometer which can help keep log off calories taken versus calories burned. Local food should be preferred. Discussed Dirty Dozen Versus Clean Fifteen. Discussed healthy supplements like fish oil, Tumeric, Curcumin, Melatonin, Resveratrol, Probiotics, Vitamin-D, Alpha-Lipoic acid, Vitamin-D and coconut oil. 2. It is important to exercise regularly. Is a good habit to walk at least 30 minutes a day. Gentle weightlifting with standard precautions to protect the back. Finding activity like cycling or hiking and get into the habit of engaging in it. Stretching before and after the exercises important. It is also important to contact me if there are any problems like shortness of breath, chest pain, back pain and joint or muscle pain associated with the exercise. 3. Discussed age appropriate screening guidelines. Colonoscopy needs to start at age 50 with stool for occult blood as appropriate. There is a new test that can test for genetic abnormalities in the stool sample, Cologuard. This would not replace a colonoscopy but could be used as a screening tool for patients who do not want a colonoscopy. We discussed the importance of early detection of colon cancer. 4. Discussed current guidelines with respect to breast examination, mammogram and pap smear for early detection of breast and cervical cancer. Patient advised to follow up with these appointments. 5. Discussed safe driving and no use of smart phone while driving 6. Age-appropriate immunizations were discussed. A tetanus booster is needed every 10 years. Flu vaccine is recommended every year just before the start of the flu season. Shingles vaccine is recommended after age 50 but not all insurances cover it. Pneumonia vaccine is given after age 65 unless there are certain comorbidities for which it is started earlier. 7. Diagnostic labs were discussed. These could include/not limited to CBC CMP and lipids with fasting blood glucose and insulin levels. Vitamin D and hemoglobin A1c testing might be appropriate. All questions have been answered to patient's satisfaction. Patient verbalized understanding of diagnosis and treatments explained. Advised to call sooner prior to next visit it any questions/concerns arise. Case discussed with collaborating physician Roz Milner who reviewed the assessment and plan. Chart, medications, labs, vital signs reviewed. Dictation was accomplished with the use of [employer] voice recognition software, which is prone to medical misidentifications and grammatical errors. This are unintentional and the practitioner does try to identify and correct these, but some could still be present. Please do not hesitate to contact practitioner for clarification. 02/13/2025 Migraine syndrome (ICD-10 - G43.909) María is a 34-year-old female with past medical history of migraines, blepharitis of bilateral eyes who presents for physical exam. #Health maintenance: Declines flu shot, COVID-vaccine 2020, Tdap 2022. Most recent Pap smear 11/2023. Upcoming appointment with [facility] 04/2025. PHQ-9 is 2, HCP filled out today, scanned in chart. #Migraines: Follows with neurology at [facility], on average every 6 months. She recently started Emgality and reports significant relief in symptoms. Continue Emgality, along with sumatriptan 50 mg as needed, topiramate 100 mg twice daily. #Blepharitis: On exam, no crusting, discoloration, edema. Continue following with [facility]. #Iron deficiency anemia: On labs obtained 01/30/2025, CBC shows hemoglobin 10.5, hematocrit 35.3, ferritin level of 5, total iron 24, percent saturation 6. Continue iron supplementation daily. Encouraged to take this with vitamin C for better absorption. #Vitamin D deficiency: 01/30/2025, vitamin D was 13. Continue with supplementation. #Proteinuria/hematur ia: Urinalysis 01/30/2025 shows cloudy urine, 3+ occult blood, 2+ protein, 10-20 RBC, 10-20 hyaline casts. Repeat urinalysis shows 3+ occult blood, 2+ protein, over 60 RBCs. Protein to creatinine ratio was 398, protein total 53. NIALL negative. CMP showed creatinine and BUN within normal limits, patient denies any urinary symptoms. Plan for bilateral kidney and bladder ultrasound. Plan for labs including C3 complement, C4 complement, antistreptolysin O antibody, antiglomerular basement antibody, anti-DNA Ds antibody. Patient offered nephrology referral, however, she states she does not need a referral due to her insurance, and she will call [facility]. #Facial hyperpigmentation: Continue tretinoin once daily at bedtime. Urine test was negative. #Pharyngitis: Patient was exposed to strep, and a few days later developed erythematous sore throat. Today, symptoms have been improving as she has been on amoxicillin. Continue course of amoxicillin. Follow-up in 3 months. Patient seen and examined. Comprehensive discussion was done on the following. 1. Nutrition: It is important to follow a healthy diet based on lots of vegetables and legumes and good fat. Avoid processed food and processed carbohydrates. Prepare your own meals. Read labels and avoid high fructose corn syrup, processed chemicals added to increase shelf life and preprepared meals. Avoid fast foods. Eat slowly and plan meals for a week. Try to count calories and be mindful off daily calorie intake. Get into the habit of keeping an eye on your weight by using an appropriate scale. Learn to log exercise and discussed fitness Apps like [employer] or E-[employer]uctionometer which can help keep log off calories taken versus calories burned. Local food should be preferred. Discussed Dirty Dozen Versus Clean Fifteen. Discussed healthy supplements like fish oil, Tumeric, Curcumin, Melatonin, Resveratrol, Probiotics, Vitamin-D, Alpha-Lipoic acid, Vitamin-D and coconut oil. 2. It is important to exercise regularly. Is a good habit to walk at least 30 minutes a day. Gentle weightlifting with standard precautions to protect the back. Finding activity like cycling or hiking and get into the habit of engaging in it. Stretching before and after the exercises important. It is also important to contact me if there are any problems like shortness of breath, chest pain, back pain and joint or muscle pain associated with the exercise. 3. Discussed age appropriate screening guidelines. Colonoscopy needs to start at age 50 with stool for occult blood as appropriate. There is a new test that can test for genetic abnormalities in the stool sample, Cologuard. This would not replace a colonoscopy but could be used as a screening tool for patients who do not want a colonoscopy. We discussed the importance of early detection of colon cancer. 4. Discussed current guidelines with respect to breast examination, mammogram and pap smear for early detection of breast and cervical cancer. Patient advised to follow up with these appointments. 5. Discussed safe driving and no use of smart phone while driving 6. Age-appropriate immunizations were discussed. A tetanus booster is needed every 10 years. Flu vaccine is recommended every year just before the start of the flu season. Shingles vaccine is recommended after age 50 but not all insurances cover it. Pneumonia vaccine is given after age 65 unless there are certain comorbidities for which it is started earlier. 7. Diagnostic labs were discussed. These could include/not limited to CBC CMP and lipids with fasting blood glucose and insulin levels. Vitamin D and hemoglobin A1c testing might be appropriate. All questions have been answered to patient's satisfaction. Patient verbalized understanding of diagnosis and treatments explained. Advised to call sooner prior to next visit it any questions/concerns arise. Case discussed with collaborating physician Roz Milner who reviewed the assessment and plan. Chart, medications, labs, vital signs reviewed. Dictation was accomplished with the use of [employer] voice recognition software, which is prone to medical misidentifications and grammatical errors. This are unintentional and the practitioner does try to identify and correct these, but some could still be present. Please do not hesitate to contact practitioner for clarification. 02/13/2025 Proteinuria, unspecified type (ICD-10 - R80.9) María is a 34-year-old female with past medical history of migraines, blepharitis of bilateral eyes who presents for physical exam. #Health maintenance: Declines flu shot, COVID-vaccine 2020, Tdap 2022. Most recent Pap smear 11/2023. Upcoming appointment with [facility] 04/2025. PHQ-9 is 2, HCP filled out today, scanned in chart. #Migraines: Follows with neurology at [facility], on average every 6 months. She recently started Emgality and reports significant relief in symptoms. Continue Emgality, along with sumatriptan 50 mg as needed, topiramate 100 mg twice daily. #Blepharitis: On exam, no crusting, discoloration, edema. Continue following with [facility]. #Iron deficiency anemia: On labs obtained 01/30/2025, CBC shows hemoglobin 10.5, hematocrit 35.3, ferritin level of 5, total iron 24, percent saturation 6. Continue iron supplementation daily. Encouraged to take this with vitamin C for better absorption. #Vitamin D deficiency: 01/30/2025, vitamin D was 13. Continue with supplementation. #Proteinuria/hematur ia: Urinalysis 01/30/2025 shows cloudy urine, 3+ occult blood, 2+ protein, 10-20 RBC, 10-20 hyaline casts. Repeat urinalysis shows 3+ occult blood, 2+ protein, over 60 RBCs. Protein to creatinine ratio was 398, protein total 53. NIALL negative. CMP showed creatinine and BUN within normal limits, patient denies any urinary symptoms. Plan for bilateral kidney and bladder ultrasound. Plan for labs including C3 complement, C4 complement, antistreptolysin O antibody, antiglomerular basement antibody, anti-DNA Ds antibody. Patient offered nephrology referral, however, she states she does not need a referral due to her insurance, and she will call [facility]. #Facial hyperpigmentation: Continue tretinoin once daily at bedtime. Urine test was negative. #Pharyngitis: Patient was exposed to strep, and a few days later developed erythematous sore throat. Today, symptoms have been improving as she has been on amoxicillin. Continue course of amoxicillin. Follow-up in 3 months. Patient seen and examined. Comprehensive discussion was done on the following. 1. Nutrition: It is important to follow a healthy diet based on lots of vegetables and legumes and good fat. Avoid processed food and processed carbohydrates. Prepare your own meals. Read labels and avoid high fructose corn syrup, processed chemicals added to increase shelf life and preprepared meals. Avoid fast foods. Eat slowly and plan meals for a week. Try to count calories and be mindful off daily calorie intake. Get into the habit of keeping an eye on your weight by using an appropriate scale. Learn to log exercise and discussed fitness Apps like [employer] or Cronometer which can help keep log off calories taken versus calories burned. Local food should be preferred. Discussed Dirty Dozen Versus Clean Fifteen. Discussed healthy supplements like fish oil, Tumeric, Curcumin, Melatonin, Resveratrol, Probiotics, Vitamin-D, Alpha-Lipoic acid, Vitamin-D and coconut oil. 2. It is important to exercise regularly. Is a good habit to walk at least 30 minutes a day. Gentle weightlifting with standard precautions to protect the back. Finding activity like cycling or hiking and get into the habit of engaging in it. Stretching before and after the exercises important. It is also important to contact me if there are any problems like shortness of breath, chest pain, back pain and joint or muscle pain associated with the exercise. 3. Discussed age appropriate screening guidelines. Colonoscopy needs to start at age 50 with stool for occult blood as appropriate. There is a new test that can test for genetic abnormalities in the stool sample, Cologuard. This would not replace a colonoscopy but could be used as a screening tool for patients who do not want a colonoscopy. We discussed the importance of early detection of colon cancer. 4. Discussed current guidelines with respect to breast examination, mammogram and pap smear for early detection of breast and cervical cancer. Patient advised to follow up with these appointments. 5. Discussed safe driving and no use of smart phone while driving 6. Age-appropriate immunizations were discussed. A tetanus booster is needed every 10 years. Flu vaccine is recommended every year just before the start of the flu season. Shingles vaccine is recommended after age 50 but not all insurances cover it. Pneumonia vaccine is given after age 65 unless there are certain comorbidities for which it is started earlier. 7. Diagnostic labs were discussed. These could include/not limited to CBC CMP and lipids with fasting blood glucose and insulin levels. Vitamin D and hemoglobin A1c testing might be appropriate. All questions have been answered to patient's satisfaction. Patient verbalized understanding of diagnosis and treatments explained. Advised to call sooner prior to next visit it any questions/concerns arise. Case discussed with collaborating physician Roz Milner who reviewed the assessment and plan. Chart, medications, labs, vital signs reviewed. Dictation was accomplished with the use of [employer] voice recognition software, which is prone to medical misidentifications and grammatical errors. This are unintentional and the practitioner does try to identify and correct these, but some could still be present. Please do not hesitate to contact practitioner for clarification. 02/02/2025 Generalized rash (ICD-10 - R21) 02/05/2025 Autoimmune disease (ICD-10 - M35.9) 01/30/2025 Atopic dermatitis, mild (ICD-10 - L20.9) Patient is welcomed to the practice. They are coming from [facility]. Last complete physical exam with labs 2022. Medications, medical history, allergies, surgeries, hospitalizations, family history, and social history were reviewed. Problem list updated. Cardiopulmonary and abdominal exam unremarkable. Patient will follow-up in office. All patient questions answered at this time. #Health maintenance: Most recent Pap smear was 2021 and was normal, however, patient has a history of abnormal requiring biopsy in 2020. Will request records from [facility]. Patient encouraged to call [facility] for appointment. She has 2 COVID shots, declines influenza, she is unsure when her last Tdap was, will request records today. #Migraines: Patient has been struggling with migraines for most of her life. She follows with neurology in [place], most recently this year, will request records. She is taking topiramate 100 mg twice daily, sumatriptan 50 mg as needed, and recently started Emgality and has had 2 injections. She reports since starting Emgality, she has not needed any sumatriptan and states her migraines have been more well-controlled. Continue current regimen. 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 On exam today, no erythema, scaling, discharge, conjunctival injection. Will monitor. #Atopic dermatitis: Patient with scaling rash to right side of her back, pruritic, darker in color than skin pigmentation. Most likely atopic dermatitis. Plan to start triamcinolone ointment daily. Encouraged to call the office if rash worsens. #Pharyngitis: Patient reports a sore throat that has been gradually improving, strep swab today is negative. Likely viral, continue supportive measures with teas and soups, Tylenol as needed. Encouraged to call the office if symptoms worsen. #STD panel: Patient requesting STD panel due to unprotected sex recently. Denies symptoms today. Chlamydia, gonorrhea, HIV, syphilis testing ordered today. #Facial hyperpigmentation: She has been using [id number] products without relief, has been seeing an community health consultant. Patient requesting tretinoin today, plan to send test and start tretinoin if test is negative. Total time spent today was 60 minutes of which greater than 50% was spent on coordinating and counseling All questions have been answered to patient's satisfaction. Patient verbalized understanding of diagnosis and treatments explained. Advised to call sooner prior to next visit it any questions/concerns arise. Case discussed with collaborating physician Roz Milner who reviewed the assessment and plan. Chart, medications, labs, vital signs reviewed. Dictation was accomplished with the use of [employer] voice recognition software, which is prone to medical misidentifications and grammatical errors. This are unintentional and the practitioner does try to identify and correct these, but some could still be present. Please do not hesitate to contact practitioner for clarification. 01/30/2025 Hyperpigmentation (ICD-10 - L81.9) Patient is welcomed to the practice. They are coming from [facility]. Last complete physical exam with labs 2022. Medications, medical history, allergies, surgeries, hospitalizations, family history, and social history were reviewed. Problem list updated. Cardiopulmonary and abdominal exam unremarkable. Patient will follow-up in office. All patient questions answered at this time. #Health maintenance: Most recent Pap smear was 2021 and was normal, however, patient has a history of abnormal requiring biopsy in 2020. Will request records from [facility]. Patient encouraged to call [facility] for appointment. She has 2 COVID shots, declines influenza, she is unsure when her last Tdap was, will request records today. #Migraines: Patient has been struggling with migraines for most of her life. She follows with neurology in [place], most recently this year, will request records. She is taking topiramate 100 mg twice daily, sumatriptan 50 mg as needed, and recently started Emgality and has had 2 injections. She reports since starting Emgality, she has not needed any sumatriptan and states her migraines have been more well-controlled. Continue current regimen. 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 On exam today, no erythema, scaling, discharge, conjunctival injection. Will monitor. #Atopic dermatitis: Patient with scaling rash to right side of her back, pruritic, darker in color than skin pigmentation. Most likely atopic dermatitis. Plan to start triamcinolone ointment daily. Encouraged to call the office if rash worsens. #Pharyngitis: Patient reports a sore throat that has been gradually improving, strep swab today is negative. Likely viral, continue supportive measures with teas and soups, Tylenol as needed. Encouraged to call the office if symptoms worsen. #STD panel: Patient requesting STD panel due to unprotected sex recently. Denies symptoms today. Chlamydia, gonorrhea, HIV, syphilis testing ordered today. #Facial hyperpigmentation: She has been using [id number] products without relief, has been seeing an community health consultant. Patient requesting tretinoin today, plan to send test and start tretinoin if test is negative. Total time spent today was 60 minutes of which greater than 50% was spent on coordinating and counseling All questions have been answered to patient's satisfaction. Patient verbalized understanding of diagnosis and treatments explained. Advised to call sooner prior to next visit it any questions/concerns arise. Case discussed with collaborating physician Roz Milner who reviewed the assessment and plan. Chart, medications, labs, vital signs reviewed. Dictation was accomplished with the use of [employer] voice recognition software, which is prone to medical misidentifications and grammatical errors. This are unintentional and the practitioner does try to identify and correct these, but some could still be present. Please do not hesitate to contact practitioner for clarification. 02/02/2025 Anemia (ICD-10 - D64.9) 02/13/2025 Avitaminosis D (ICD-10 - E55.9) María is a 34-year-old female with past medical history of migraines, blepharitis of bilateral eyes who presents for physical exam. #Health maintenance: Declines flu shot, COVID-vaccine 2020, Tdap 2022. Most recent Pap smear 11/2023. Upcoming appointment with [facility] 04/2025. PHQ-9 is 2, HCP filled out today, scanned in chart. #Migraines: Follows with neurology at [facility], on average every 6 months. She recently started Emgality and reports significant relief in symptoms. Continue Emgality, along with sumatriptan 50 mg as needed, topiramate 100 mg twice daily. #Blepharitis: On exam, no crusting, discoloration, edema. Continue following with [facility]. #Iron deficiency anemia: On labs obtained 01/30/2025, CBC shows hemoglobin 10.5, hematocrit 35.3, ferritin level of 5, total iron 24, percent saturation 6. Continue iron supplementation daily. Encouraged to take this with vitamin C for better absorption. #Vitamin D deficiency: 01/30/2025, vitamin D was 13. Continue with supplementation. #Proteinuria/hematur ia: Urinalysis 01/30/2025 shows cloudy urine, 3+ occult blood, 2+ protein, 10-20 RBC, 10-20 hyaline casts. Repeat urinalysis shows 3+ occult blood, 2+ protein, over 60 RBCs. Protein to creatinine ratio was 398, protein total 53. NIALL negative. CMP showed creatinine and BUN within normal limits, patient denies any urinary symptoms. Plan for bilateral kidney and bladder ultrasound. Plan for labs including C3 complement, C4 complement, antistreptolysin O antibody, antiglomerular basement antibody, anti-DNA Ds antibody. Patient offered nephrology referral, however, she states she does not need a referral due to her insurance, and she will call [facility]. #Facial hyperpigmentation: Continue tretinoin once daily at bedtime. Urine test was negative. #Pharyngitis: Patient was exposed to strep, and a few days later developed erythematous sore throat. Today, symptoms have been improving as she has been on amoxicillin. Continue course of amoxicillin. Follow-up in 3 months. Patient seen and examined. Comprehensive discussion was done on the following. 1. Nutrition: It is important to follow a healthy diet based on lots of vegetables and legumes and good fat. Avoid processed food and processed carbohydrates. Prepare your own meals. Read labels and avoid high fructose corn syrup, processed chemicals added to increase shelf life and preprepared meals. Avoid fast foods. Eat slowly and plan meals for a week. Try to count calories and be mindful off daily calorie intake. Get into the habit of keeping an eye on your weight by using an appropriate scale. Learn to log exercise and discussed fitness Apps like [employer] or E-Ductionometer which can help keep log off calories taken versus calories burned. Local food should be preferred. Discussed Dirty Dozen Versus Clean Fifteen. Discussed healthy supplements like fish oil, Tumeric, Curcumin, Melatonin, Resveratrol, Probiotics, Vitamin-D, Alpha-Lipoic acid, Vitamin-D and coconut oil. 2. It is important to exercise regularly. Is a good habit to walk at least 30 minutes a day. Gentle weightlifting with standard precautions to protect the back. Finding activity like cycling or hiking and get into the habit of engaging in it. Stretching before and after the exercises important. It is also important to contact me if there are any problems like shortness of breath, chest pain, back pain and joint or muscle pain associated with the exercise. 3. Discussed age appropriate screening guidelines. Colonoscopy needs to start at age 50 with stool for occult blood as appropriate. There is a new test that can test for genetic abnormalities in the stool sample, Cologuard. This would not replace a colonoscopy but could be used as a screening tool for patients who do not want a colonoscopy. We discussed the importance of early detection of colon cancer. 4. Discussed current guidelines with respect to breast examination, mammogram and pap smear for early detection of breast and cervical cancer. Patient advised to follow up with these appointments. 5. Discussed safe driving and no use of smart phone while driving 6. Age-appropriate immunizations were discussed. A tetanus booster is needed every 10 years. Flu vaccine is recommended every year just before the start of the flu season. Shingles vaccine is recommended after age 50 but not all insurances cover it. Pneumonia vaccine is given after age 65 unless there are certain comorbidities for which it is started earlier. 7. Diagnostic labs were discussed. These could include/not limited to CBC CMP and lipids with fasting blood glucose and insulin levels. Vitamin D and hemoglobin A1c testing might be appropriate. All questions have been answered to patient's satisfaction. Patient verbalized understanding of diagnosis and treatments explained. Advised to call sooner prior to next visit it any questions/concerns arise. Case discussed with collaborating physician Roz Milner who reviewed the assessment and plan. Chart, medications, labs, vital signs reviewed. Dictation was accomplished with the use of [employer] voice recognition software, which is prone to medical misidentifications and grammatical errors. This are unintentional and the practitioner does try to identify and correct these, but some could still be present. Please do not hesitate to contact practitioner for clarification. 02/13/2025 Iron deficiency anemia secondary to inadequate dietary iron intake (ICD-10 - D50.8) María is a 34-year-old female with past medical history of migraines, blepharitis of bilateral eyes who presents for physical exam. #Health maintenance: Declines flu shot, COVID-vaccine 2020, Tdap 2022. Most recent Pap smear 11/2023. Upcoming appointment with [facility] 04/2025. PHQ-9 is 2, HCP filled out today, scanned in chart. #Migraines: Follows with neurology at [facility], on average every 6 months. She recently started Emgality and reports significant relief in symptoms. Continue Emgality, along with sumatriptan 50 mg as needed, topiramate 100 mg twice daily. #Blepharitis: On exam, no crusting, discoloration, edema. Continue following with [facility]. #Iron deficiency anemia: On labs obtained 01/30/2025, CBC shows hemoglobin 10.5, hematocrit 35.3, ferritin level of 5, total iron 24, percent saturation 6. Continue iron supplementation daily. Encouraged to take this with vitamin C for better absorption. #Vitamin D deficiency: 01/30/2025, vitamin D was 13. Continue with supplementation. #Proteinuria/hematur ia: Urinalysis 01/30/2025 shows cloudy urine, 3+ occult blood, 2+ protein, 10-20 RBC, 10-20 hyaline casts. Repeat urinalysis shows 3+ occult blood, 2+ protein, over 60 RBCs. Protein to creatinine ratio was 398, protein total 53. NIALL negative. CMP showed creatinine and BUN within normal limits, patient denies any urinary symptoms. Plan for bilateral kidney and bladder ultrasound. Plan for labs including C3 complement, C4 complement, antistreptolysin O antibody, antiglomerular basement antibody, anti-DNA Ds antibody. Patient offered nephrology referral, however, she states she does not need a referral due to her insurance, and she will call [facility]. #Facial hyperpigmentation: Continue tretinoin once daily at bedtime. Urine test was negative. #Pharyngitis: Patient was exposed to strep, and a few days later developed erythematous sore throat. Today, symptoms have been improving as she has been on amoxicillin. Continue course of amoxicillin. Follow-up in 3 months. Patient seen and examined. Comprehensive discussion was done on the following. 1. Nutrition: It is important to follow a healthy diet based on lots of vegetables and legumes and good fat. Avoid processed food and processed carbohydrates. Prepare your own meals. Read labels and avoid high fructose corn syrup, processed chemicals added to increase shelf life and preprepared meals. Avoid fast foods. Eat slowly and plan meals for a week. Try to count calories and be mindful off daily calorie intake. Get into the habit of keeping an eye on your weight by using an appropriate scale. Learn to log exercise and discussed fitness Apps like [employer] or E-[employer]uctionometer which can help keep log off calories taken versus calories burned. Local food should be preferred. Discussed Dirty Dozen Versus Clean Fifteen. Discussed healthy supplements like fish oil, Tumeric, Curcumin, Melatonin, Resveratrol, Probiotics, Vitamin-D, Alpha-Lipoic acid, Vitamin-D and coconut oil. 2. It is important to exercise regularly. Is a good habit to walk at least 30 minutes a day. Gentle weightlifting with standard precautions to protect the back. Finding activity like cycling or hiking and get into the habit of engaging in it. Stretching before and after the exercises important. It is also important to contact me if there are any problems like shortness of breath, chest pain, back pain and joint or muscle pain associated with the exercise. 3. Discussed age appropriate screening guidelines. Colonoscopy needs to start at age 50 with stool for occult blood as appropriate. There is a new test that can test for genetic abnormalities in the stool sample, Cologuard. This would not replace a colonoscopy but could be used as a screening tool for patients who do not want a colonoscopy. We discussed the importance of early detection of colon cancer. 4. Discussed current guidelines with respect to breast examination, mammogram and pap smear for early detection of breast and cervical cancer. Patient advised to follow up with these appointments. 5. Discussed safe driving and no use of smart phone while driving 6. Age-appropriate immunizations were discussed. A tetanus booster is needed every 10 years. Flu vaccine is recommended every year just before the start of the flu season. Shingles vaccine is recommended after age 50 but not all insurances cover it. Pneumonia vaccine is given after age 65 unless there are certain comorbidities for which it is started earlier. 7. Diagnostic labs were discussed. These could include/not limited to CBC CMP and lipids with fasting blood glucose and insulin levels. Vitamin D and hemoglobin A1c testing might be appropriate. All questions have been answered to patient's satisfaction. Patient verbalized understanding of diagnosis and treatments explained. Advised to call sooner prior to next visit it any questions/concerns arise. Case discussed with collaborating physician Roz Milner who reviewed the assessment and plan. Chart, medications, labs, vital signs reviewed. Dictation was accomplished with the use of [employer] voice recognition software, which is prone to medical misidentifications and grammatical errors. This are unintentional and the practitioner does try to identify and correct these, but some could still be present. Please do not hesitate to contact practitioner for clarification. 01/30/2025 Unprotected sex (ICD-10 - Z72.51) Patient is welcomed to the practice. They are coming from [facility]. Last complete physical exam with labs 2022. Medications, medical history, allergies, surgeries, hospitalizations, family history, and social history were reviewed. Problem list updated. Cardiopulmonary and abdominal exam unremarkable. Patient will follow-up in office. All patient questions answered at this time. #Health maintenance: Most recent Pap smear was 2021 and was normal, however, patient has a history of abnormal requiring biopsy in 2020. Will request records from [facility]. Patient encouraged to call [facility] for appointment. She has 2 COVID shots, declines influenza, she is unsure when her last Tdap was, will request records today. #Migraines: Patient has been struggling with migraines for most of her life. She follows with neurology in [place], most recently this year, will request records. She is taking topiramate 100 mg twice daily, sumatriptan 50 mg as needed, and recently started Emgality and has had 2 injections. She reports since starting Emgality, she has not needed any sumatriptan and states her migraines have been more well-controlled. Continue current regimen. 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 On exam today, no erythema, scaling, discharge, conjunctival injection. Will monitor. #Atopic dermatitis: Patient with scaling rash to right side of her back, pruritic, darker in color than skin pigmentation. Most likely atopic dermatitis. Plan to start triamcinolone ointment daily. Encouraged to call the office if rash worsens. #Pharyngitis: Patient reports a sore throat that has been gradually improving, strep swab today is negative. Likely viral, continue supportive measures with teas and soups, Tylenol as needed. Encouraged to call the office if symptoms worsen. #STD panel: Patient requesting STD panel due to unprotected sex recently. Denies symptoms today. Chlamydia, gonorrhea, HIV, syphilis testing ordered today. #Facial hyperpigmentation: She has been using [id number] products without relief, has been seeing an community health consultant. Patient requesting tretinoin today, plan to send test and start tretinoin if test is negative. Total time spent today was 60 minutes of which greater than 50% was spent on coordinating and counseling All questions have been answered to patient's satisfaction. Patient verbalized understanding of diagnosis and treatments explained. Advised to call sooner prior to next visit it any questions/concerns arise. Case discussed with collaborating physician Roz Milner who reviewed the assessment and plan. Chart, medications, labs, vital signs reviewed. Dictation was accomplished with the use of [employer] voice recognition software, which is prone to medical misidentifications and grammatical errors. This are unintentional and the practitioner does try to identify and correct these, but some could still be present. Please do not hesitate to contact practitioner for clarification. 01/30/2025 Abnormal vaginal Pap smear (ICD-10 - R87.629) Patient is welcomed to the practice. They are coming from [facility]. Last complete physical exam with labs 2022. Medications, medical history, allergies, surgeries, hospitalizations, family history, and social history were reviewed. Problem list updated. Cardiopulmonary and abdominal exam unremarkable. Patient will follow-up in office. All patient questions answered at this time. #Health maintenance: Most recent Pap smear was 2021 and was normal, however, patient has a history of abnormal requiring biopsy in 2020. Will request records from [facility]. Patient encouraged to call [facility] for appointment. She has 2 COVID shots, declines influenza, she is unsure when her last Tdap was, will request records today. #Migraines: Patient has been struggling with migraines for most of her life. She follows with neurology in [place], most recently this year, will request records. She is taking topiramate 100 mg twice daily, sumatriptan 50 mg as needed, and recently started Emgality and has had 2 injections. She reports since starting Emgality, she has not needed any sumatriptan and states her migraines have been more well-controlled. Continue current regimen. 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 On exam today, no erythema, scaling, discharge, conjunctival injection. Will monitor. #Atopic dermatitis: Patient with scaling rash to right side of her back, pruritic, darker in color than skin pigmentation. Most likely atopic dermatitis. Plan to start triamcinolone ointment daily. Encouraged to call the office if rash worsens. #Pharyngitis: Patient reports a sore throat that has been gradually improving, strep swab today is negative. Likely viral, continue supportive measures with teas and soups, Tylenol as needed. Encouraged to call the office if symptoms worsen. #STD panel: Patient requesting STD panel due to unprotected sex recently. Denies symptoms today. Chlamydia, gonorrhea, HIV, syphilis testing ordered today. #Facial hyperpigmentation: She has been using [id number] products without relief, has been seeing an community health consultant. Patient requesting tretinoin today, plan to send test and start tretinoin if test is negative. Total time spent today was 60 minutes of which greater than 50% was spent on coordinating and counseling All questions have been answered to patient's satisfaction. Patient verbalized understanding of diagnosis and treatments explained. Advised to call sooner prior to next visit it any questions/concerns arise. Case discussed with collaborating physician Roz Milner who reviewed the assessment and plan. Chart, medications, labs, vital signs reviewed. Dictation was accomplished with the use of [employer] voice recognition software, which is prone to medical misidentifications and grammatical errors. This are unintentional and the practitioner does try to identify and correct these, but some could still be present. Please do not hesitate to contact practitioner for clarification. 02/13/2025 Strep pharyngitis (ICD-10 - J02.0) María is a 34-year-old female with past medical history of migraines, blepharitis of bilateral eyes who presents for physical exam. #Health maintenance: Declines flu shot, COVID-vaccine 2020, Tdap 2022. Most recent Pap smear 11/2023. Upcoming appointment with [facility] 04/2025. PHQ-9 is 2, HCP filled out today, scanned in chart. #Migraines: Follows with neurology at [facility], on average every 6 months. She recently started Emgality and reports significant relief in symptoms. Continue Emgality, along with sumatriptan 50 mg as needed, topiramate 100 mg twice daily. #Blepharitis: On exam, no crusting, discoloration, edema. Continue following with [facility]. #Iron deficiency anemia: On labs obtained 01/30/2025, CBC shows hemoglobin 10.5, hematocrit 35.3, ferritin level of 5, total iron 24, percent saturation 6. Continue iron supplementation daily. Encouraged to take this with vitamin C for better absorption. #Vitamin D deficiency: 01/30/2025, vitamin D was 13. Continue with supplementation. #Proteinuria/hematur ia: Urinalysis 01/30/2025 shows cloudy urine, 3+ occult blood, 2+ protein, 10-20 RBC, 10-20 hyaline casts. Repeat urinalysis shows 3+ occult blood, 2+ protein, over 60 RBCs. Protein to creatinine ratio was 398, protein total 53. NIALL negative. CMP showed creatinine and BUN within normal limits, patient denies any urinary symptoms. Plan for bilateral kidney and bladder ultrasound. Plan for labs including C3 complement, C4 complement, antistreptolysin O antibody, antiglomerular basement antibody, anti-DNA Ds antibody. Patient offered nephrology referral, however, she states she does not need a referral due to her insurance, and she will call [facility]. #Facial hyperpigmentation: Continue tretinoin once daily at bedtime. Urine test was negative. #Pharyngitis: Patient was exposed to strep, and a few days later developed erythematous sore throat. Today, symptoms have been improving as she has been on amoxicillin. Continue course of amoxicillin. Follow-up in 3 months. Patient seen and examined. Comprehensive discussion was done on the following. 1. Nutrition: It is important to follow a healthy diet based on lots of vegetables and legumes and good fat. Avoid processed food and processed carbohydrates. Prepare your own meals. Read labels and avoid high fructose corn syrup, processed chemicals added to increase shelf life and preprepared meals. Avoid fast foods. Eat slowly and plan meals for a week. Try to count calories and be mindful off daily calorie intake. Get into the habit of keeping an eye on your weight by using an appropriate scale. Learn to log exercise and discussed fitness Apps like [employer] or [employer] which can help keep log off calories taken versus calories burned. Local food should be preferred. Discussed Dirty Dozen Versus Clean Fifteen. Discussed healthy supplements like fish oil, Tumeric, Curcumin, Melatonin, Resveratrol, Probiotics, Vitamin-D, Alpha-Lipoic acid, Vitamin-D and coconut oil. 2. It is important to exercise regularly. Is a good habit to walk at least 30 minutes a day. Gentle weightlifting with standard precautions to protect the back. Finding activity like cycling or hiking and get into the habit of engaging in it. Stretching before and after the exercises important. It is also important to contact me if there are any problems like shortness of breath, chest pain, back pain and joint or muscle pain associated with the exercise. 3. Discussed age appropriate screening guidelines. Colonoscopy needs to start at age 50 with stool for occult blood as appropriate. There is a new test that can test for genetic abnormalities in the stool sample, Cologuard. This would not replace a colonoscopy but could be used as a screening tool for patients who do not want a colonoscopy. We discussed the importance of early detection of colon cancer. 4. Discussed current guidelines with respect to breast examination, mammogram and pap smear for early detection of breast and cervical cancer. Patient advised to follow up with these appointments. 5. Discussed safe driving and no use of smart phone while driving 6. Age-appropriate immunizations were discussed. A tetanus booster is needed every 10 years. Flu vaccine is recommended every year just before the start of the flu season. Shingles vaccine is recommended after age 50 but not all insurances cover it. Pneumonia vaccine is given after age 65 unless there are certain comorbidities for which it is started earlier. 7. Diagnostic labs were discussed. These could include/not limited to CBC CMP and lipids with fasting blood glucose and insulin levels. Vitamin D and hemoglobin A1c testing might be appropriate. All questions have been answered to patient's satisfaction. Patient verbalized understanding of diagnosis and treatments explained. Advised to call sooner prior to next visit it any questions/concerns arise. Case discussed with collaborating physician Roz Milner who reviewed the assessment and plan. Chart, medications, labs, vital signs reviewed. Dictation was accomplished with the use of [employer] voice recognition software, which is prone to medical misidentifications and grammatical errors. This are unintentional and the practitioner does try to identify and correct these, but some could still be present. Please do not hesitate to contact practitioner for clarification. 02/13/2025 Unspecified blepharitis right eye, upper and lower eyelids (ICD-10 - H01.00A) María is a 34-year-old female with past medical history of migraines, blepharitis of bilateral eyes who presents for physical exam. #Health maintenance: Declines flu shot, COVID-vaccine 2020, Tdap 2022. Most recent Pap smear 11/2023. Upcoming appointment with [facility] 04/2025. PHQ-9 is 2, HCP filled out today, scanned in chart. #Migraines: Follows with neurology at [facility], on average every 6 months. She recently started Emgality and reports significant relief in symptoms. Continue Emgality, along with sumatriptan 50 mg as needed, topiramate 100 mg twice daily. #Blepharitis: On exam, no crusting, discoloration, edema. Continue following with [facility]. #Iron deficiency anemia: On labs obtained 01/30/2025, CBC shows hemoglobin 10.5, hematocrit 35.3, ferritin level of 5, total iron 24, percent saturation 6. Continue iron supplementation daily. Encouraged to take this with vitamin C for better absorption. #Vitamin D deficiency: 01/30/2025, vitamin D was 13. Continue with supplementation. #Proteinuria/hematur ia: Urinalysis 01/30/2025 shows cloudy urine, 3+ occult blood, 2+ protein, 10-20 RBC, 10-20 hyaline casts. Repeat urinalysis shows 3+ occult blood, 2+ protein, over 60 RBCs. Protein to creatinine ratio was 398, protein total 53. NIALL negative. CMP showed creatinine and BUN within normal limits, patient denies any urinary symptoms. Plan for bilateral kidney and bladder ultrasound. Plan for labs including C3 complement, C4 complement, antistreptolysin O antibody, antiglomerular basement antibody, anti-DNA Ds antibody. Patient offered nephrology referral, however, she states she does not need a referral due to her insurance, and she will call [facility]. #Facial hyperpigmentation: Continue tretinoin once daily at bedtime. Urine test was negative. #Pharyngitis: Patient was exposed to strep, and a few days later developed erythematous sore throat. Today, symptoms have been improving as she has been on amoxicillin. Continue course of amoxicillin. Follow-up in 3 months. Patient seen and examined. Comprehensive discussion was done on the following. 1. Nutrition: It is important to follow a healthy diet based on lots of vegetables and legumes and good fat. Avoid processed food and processed carbohydrates. Prepare your own meals. Read labels and avoid high fructose corn syrup, processed chemicals added to increase shelf life and preprepared meals. Avoid fast foods. Eat slowly and plan meals for a week. Try to count calories and be mindful off daily calorie intake. Get into the habit of keeping an eye on your weight by using an appropriate scale. Learn to log exercise and discussed fitness Apps like [employer] or E-[employer] which can help keep log off calories taken versus calories burned. Local food should be preferred. Discussed Dirty Dozen Versus Clean Fifteen. Discussed healthy supplements like fish oil, Tumeric, Curcumin, Melatonin, Resveratrol, Probiotics, Vitamin-D, Alpha-Lipoic acid, Vitamin-D and coconut oil. 2. It is important to exercise regularly. Is a good habit to walk at least 30 minutes a day. Gentle weightlifting with standard precautions to protect the back. Finding activity like cycling or hiking and get into the habit of engaging in it. Stretching before and after the exercises important. It is also important to contact me if there are any problems like shortness of breath, chest pain, back pain and joint or muscle pain associated with the exercise. 3. Discussed age appropriate screening guidelines. Colonoscopy needs to start at age 50 with stool for occult blood as appropriate. There is a new test that can test for genetic abnormalities in the stool sample, Cologuard. This would not replace a colonoscopy but could be used as a screening tool for patients who do not want a colonoscopy. We discussed the importance of early detection of colon cancer. 4. Discussed current guidelines with respect to breast examination, mammogram and pap smear for early detection of breast and cervical cancer. Patient advised to follow up with these appointments. 5. Discussed safe driving and no use of smart phone while driving 6. Age-appropriate immunizations were discussed. A tetanus booster is needed every 10 years. Flu vaccine is recommended every year just before the start of the flu season. Shingles vaccine is recommended after age 50 but not all insurances cover it. Pneumonia vaccine is given after age 65 unless there are certain comorbidities for which it is started earlier. 7. Diagnostic labs were discussed. These could include/not limited to CBC CMP and lipids with fasting blood glucose and insulin levels. Vitamin D and hemoglobin A1c testing might be appropriate. All questions have been answered to patient's satisfaction. Patient verbalized understanding of diagnosis and treatments explained. Advised to call sooner prior to next visit it any questions/concerns arise. Case discussed with collaborating physician Roz Milner who reviewed the assessment and plan. Chart, medications, labs, vital signs reviewed. Dictation was accomplished with the use of [employer] voice recognition software, which is prone to medical misidentifications and grammatical errors. This are unintentional and the practitioner does try to identify and correct these, but some could still be present. Please do not hesitate to contact practitioner for clarification. 01/30/2025 Encounter for examination of blood pressure without abnormal findings (ICD-10 - Z01.30) Patient is welcomed to the practice. They are coming from [facility]. Last complete physical exam with labs 2022. Medications, medical history, allergies, surgeries, hospitalizations, family history, and social history were reviewed. Problem list updated. Cardiopulmonary and abdominal exam unremarkable. Patient will follow-up in office. All patient questions answered at this time. #Health maintenance: Most recent Pap smear was 2021 and was normal, however, patient has a history of abnormal requiring biopsy in 2020. Will request records from [facility]. Patient encouraged to call [facility] for appointment. She has 2 COVID shots, declines influenza, she is unsure when her last Tdap was, will request records today. #Migraines: Patient has been struggling with migraines for most of her life. She follows with neurology in [place], most recently this year, will request records. She is taking topiramate 100 mg twice daily, sumatriptan 50 mg as needed, and recently started Emgality and has had 2 injections. She reports since starting Emgality, she has not needed any sumatriptan and states her migraines have been more well-controlled. Continue current regimen. 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 On exam today, no erythema, scaling, discharge, conjunctival injection. Will monitor. #Atopic dermatitis: Patient with scaling rash to right side of her back, pruritic, darker in color than skin pigmentation. Most likely atopic dermatitis. Plan to start triamcinolone ointment daily. Encouraged to call the office if rash worsens. #Pharyngitis: Patient reports a sore throat that has been gradually improving, strep swab today is negative. Likely viral, continue supportive measures with teas and soups, Tylenol as needed. Encouraged to call the office if symptoms worsen. #STD panel: Patient requesting STD panel due to unprotected sex recently. Denies symptoms today. Chlamydia, gonorrhea, HIV, syphilis testing ordered today. #Facial hyperpigmentation: She has been using [id number] products without relief, has been seeing an community health consultant. Patient requesting tretinoin today, plan to send test and start tretinoin if test is negative. Total time spent today was 60 minutes of which greater than 50% was spent on coordinating and counseling All questions have been answered to patient's satisfaction. Patient verbalized understanding of diagnosis and treatments explained. Advised to call sooner prior to next visit it any questions/concerns arise. Case discussed with collaborating physician Roz Milner who reviewed the assessment and plan. Chart, medications, labs, vital signs reviewed. Dictation was accomplished with the use of [employer] voice recognition software, which is prone to medical misidentifications and grammatical errors. This are unintentional and the practitioner does try to identify and correct these, but some could still be present. Please do not hesitate to contact practitioner for clarification. 02/13/2025 Unspecified blepharitis left eye, upper and lower eyelids (ICD-10 - H01.00B) María is a 34-year-old female with past medical history of migraines, blepharitis of bilateral eyes who presents for physical exam. #Health maintenance: Declines flu shot, COVID-vaccine 2020, Tdap 2022. Most recent Pap smear 11/2023. Upcoming appointment with [facility] 04/2025. PHQ-9 is 2, HCP filled out today, scanned in chart. #Migraines: Follows with neurology at [facility], on average every 6 months. She recently started Emgality and reports significant relief in symptoms. Continue Emgality, along with sumatriptan 50 mg as needed, topiramate 100 mg twice daily. #Blepharitis: On exam, no crusting, discoloration, edema. Continue following with [facility]. #Iron deficiency anemia: On labs obtained 01/30/2025, CBC shows hemoglobin 10.5, hematocrit 35.3, ferritin level of 5, total iron 24, percent saturation 6. Continue iron supplementation daily. Encouraged to take this with vitamin C for better absorption. #Vitamin D deficiency: 01/30/2025, vitamin D was 13. Continue with supplementation. #Proteinuria/hematur ia: Urinalysis 01/30/2025 shows cloudy urine, 3+ occult blood, 2+ protein, 10-20 RBC, 10-20 hyaline casts. Repeat urinalysis shows 3+ occult blood, 2+ protein, over 60 RBCs. Protein to creatinine ratio was 398, protein total 53. NIALL negative. CMP showed creatinine and BUN within normal limits, patient denies any urinary symptoms. Plan for bilateral kidney and bladder ultrasound. Plan for labs including C3 complement, C4 complement, antistreptolysin O antibody, antiglomerular basement antibody, anti-DNA Ds antibody. Patient offered nephrology referral, however, she states she does not need a referral due to her insurance, and she will call [place] [facility]. #Facial hyperpigmentation: Continue tretinoin once daily at bedtime. Urine test was negative. #Pharyngitis: Patient was exposed to strep, and a few days later developed erythematous sore throat. Today, symptoms have been improving as she has been on amoxicillin. Continue course of amoxicillin. Follow-up in 3 months. Patient seen and examined. Comprehensive discussion was done on the following. 1. Nutrition: It is important to follow a healthy diet based on lots of vegetables and legumes and good fat. Avoid processed food and processed carbohydrates. Prepare your own meals. Read labels and avoid high fructose corn syrup, processed chemicals added to increase shelf life and preprepared meals. Avoid fast foods. Eat slowly and plan meals for a week. Try to count calories and be mindful off daily calorie intake. Get into the habit of keeping an eye on your weight by using an appropriate scale. Learn to log exercise and discussed fitness Apps like [employer] or [employer] which can help keep log off calories taken versus calories burned. Local food should be preferred. Discussed Dirty Dozen Versus Clean Fifteen. Discussed healthy supplements like fish oil, Tumeric, Curcumin, Melatonin, Resveratrol, Probiotics, Vitamin-D, Alpha-Lipoic acid, Vitamin-D and coconut oil. 2. It is important to exercise regularly. Is a good habit to walk at least 30 minutes a day. Gentle weightlifting with standard precautions to protect the back. Finding activity like cycling or hiking and get into the habit of engaging in it. Stretching before and after the exercises important. It is also important to contact me if there are any problems like shortness of breath, chest pain, back pain and joint or muscle pain associated with the exercise. 3. Discussed age appropriate screening guidelines. Colonoscopy needs to start at age 50 with stool for occult blood as appropriate. There is a new test that can test for genetic abnormalities in the stool sample, Cologuard. This would not replace a colonoscopy but could be used as a screening tool for patients who do not want a colonoscopy. We discussed the importance of early detection of colon cancer. 4. Discussed current guidelines with respect to breast examination, mammogram and pap smear for early detection of breast and cervical cancer. Patient advised to follow up with these appointments. 5. Discussed safe driving and no use of smart phone while driving 6. Age-appropriate immunizations were discussed. A tetanus booster is needed every 10 years. Flu vaccine is recommended every year just before the start of the flu season. Shingles vaccine is recommended after age 50 but not all insurances cover it. Pneumonia vaccine is given after age 65 unless there are certain comorbidities for which it is started earlier. 7. Diagnostic labs were discussed. These could include/not limited to CBC CMP and lipids with fasting blood glucose and insulin levels. Vitamin D and hemoglobin A1c testing might be appropriate. All questions have been answered to patient's satisfaction. Patient verbalized understanding of diagnosis and treatments explained. Advised to call sooner prior to next visit it any questions/concerns arise. Case discussed with collaborating physician Roz Milner who reviewed the assessment and plan. Chart, medications, labs, vital signs reviewed. Dictation was accomplished with the use of [employer] voice recognition software, which is prone to medical misidentifications and grammatical errors. This are unintentional and the practitioner does try to identify and correct these, but some could still be present. Please do not hesitate to contact practitioner for clarification. 02/13/2025 Encounter for examination of blood pressure without abnormal findings (ICD-10 - Z01.30) María is a 34-year-old female with past medical history of migraines, blepharitis of bilateral eyes who presents for physical exam. #Health maintenance: Declines flu shot, COVID-vaccine 2020, Tdap 2022. Most recent Pap smear 11/2023. Upcoming appointment with [facility] 04/2025. PHQ-9 is 2, HCP filled out today, scanned in chart. #Migraines: Follows with neurology at [facility], on average every 6 months. She recently started Emgality and reports significant relief in symptoms. Continue Emgality, along with sumatriptan 50 mg as needed, topiramate 100 mg twice daily. #Blepharitis: On exam, no crusting, discoloration, edema. Continue following with [facility]. #Iron deficiency anemia: On labs obtained 01/30/2025, CBC shows hemoglobin 10.5, hematocrit 35.3, ferritin level of 5, total iron 24, percent saturation 6. Continue iron supplementation daily. Encouraged to take this with vitamin C for better absorption. #Vitamin D deficiency: 01/30/2025, vitamin D was 13. Continue with supplementation. #Proteinuria/hematur ia: Urinalysis 01/30/2025 shows cloudy urine, 3+ occult blood, 2+ protein, 10-20 RBC, 10-20 hyaline casts. Repeat urinalysis shows 3+ occult blood, 2+ protein, over 60 RBCs. Protein to creatinine ratio was 398, protein total 53. NIALL negative. CMP showed creatinine and BUN within normal limits, patient denies any urinary symptoms. Plan for bilateral kidney and bladder ultrasound. Plan for labs including C3 complement, C4 complement, antistreptolysin O antibody, antiglomerular basement antibody, anti-DNA Ds antibody. Patient offered nephrology referral, however, she states she does not need a referral due to her insurance, and she will call [place] [facility]. #Facial hyperpigmentation: Continue tretinoin once daily at bedtime. Urine test was negative. #Pharyngitis: Patient was exposed to strep, and a few days later developed erythematous sore throat. Today, symptoms have been improving as she has been on amoxicillin. Continue course of amoxicillin. Follow-up in 3 months. Patient seen and examined. Comprehensive discussion was done on the following. 1. Nutrition: It is important to follow a healthy diet based on lots of vegetables and legumes and good fat. Avoid processed food and processed carbohydrates. Prepare your own meals. Read labels and avoid high fructose corn syrup, processed chemicals added to increase shelf life and preprepared meals. Avoid fast foods. Eat slowly and plan meals for a week. Try to count calories and be mindful off daily calorie intake. Get into the habit of keeping an eye on your weight by using an appropriate scale. Learn to log exercise and discussed fitness Apps like [employer] or [employer] which can help keep log off calories taken versus calories burned. Local food should be preferred. Discussed Dirty Dozen Versus Clean Fifteen. Discussed healthy supplements like fish oil, Tumeric, Curcumin, Melatonin, Resveratrol, Probiotics, Vitamin-D, Alpha-Lipoic acid, Vitamin-D and coconut oil. 2. It is important to exercise regularly. Is a good habit to walk at least 30 minutes a day. Gentle weightlifting with standard precautions to protect the back. Finding activity like cycling or hiking and get into the habit of engaging in it. Stretching before and after the exercises important. It is also important to contact me if there are any problems like shortness of breath, chest pain, back pain and joint or muscle pain associated with the exercise. 3. Discussed age appropriate screening guidelines. Colonoscopy needs to start at age 50 with stool for occult blood as appropriate. There is a new test that can test for genetic abnormalities in the stool sample, Cologuard. This would not replace a colonoscopy but could be used as a screening tool for patients who do not want a colonoscopy. We discussed the importance of early detection of colon cancer. 4. Discussed current guidelines with respect to breast examination, mammogram and pap smear for early detection of breast and cervical cancer. Patient advised to follow up with these appointments. 5. Discussed safe driving and no use of smart phone while driving 6. Age-appropriate immunizations were discussed. A tetanus booster is needed every 10 years. Flu vaccine is recommended every year just before the start of the flu season. Shingles vaccine is recommended after age 50 but not all insurances cover it. Pneumonia vaccine is given after age 65 unless there are certain comorbidities for which it is started earlier. 7. Diagnostic labs were discussed. These could include/not limited to CBC CMP and lipids with fasting blood glucose and insulin levels. Vitamin D and hemoglobin A1c testing might be appropriate. All questions have been answered to patient's satisfaction. Patient verbalized understanding of diagnosis and treatments explained. Advised to call sooner prior to next visit it any questions/concerns arise. Case discussed with collaborating physician Roz Milner who reviewed the assessment and plan. Chart, medications, labs, vital signs reviewed. Dictation was accomplished with the use of [employer] voice recognition software, which is prone to medical misidentifications and grammatical errors. This are unintentional and the practitioner does try to identify and correct these, but some could still be present. Please do not hesitate to contact practitioner for clarification. 01/30/2025 Unprotected sexual intercourse (ICD-10 - Z72.51) Patient is welcomed to the practice. They are coming from [facility]. Last complete physical exam with labs 2022. Medications, medical history, allergies, surgeries, hospitalizations, family history, and social history were reviewed. Problem list updated. Cardiopulmonary and abdominal exam unremarkable. Patient will follow-up in office. All patient questions answered at this time. #Health maintenance: Most recent Pap smear was 2021 and was normal, however, patient has a history of abnormal requiring biopsy in 2020. Will request records from [facility]. Patient encouraged to call [facility] for appointment. She has 2 COVID shots, declines influenza, she is unsure when her last Tdap was, will request records today. #Migraines: Patient has been struggling with migraines for most of her life. She follows with neurology in [place], most recently this year, will request records. She is taking topiramate 100 mg twice daily, sumatriptan 50 mg as needed, and recently started Emgality and has had 2 injections. She reports since starting Emgality, she has not needed any sumatriptan and states her migraines have been more well-controlled. Continue current regimen. 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 On exam today, no erythema, scaling, discharge, conjunctival injection. Will monitor. #Atopic dermatitis: Patient with scaling rash to right side of her back, pruritic, darker in color than skin pigmentation. Most likely atopic dermatitis. Plan to start triamcinolone ointment daily. Encouraged to call the office if rash worsens. #Pharyngitis: Patient reports a sore throat that has been gradually improving, strep swab today is negative. Likely viral, continue supportive measures with teas and soups, Tylenol as needed. Encouraged to call the office if symptoms worsen. #STD panel: Patient requesting STD panel due to unprotected sex recently. Denies symptoms today. Chlamydia, gonorrhea, HIV, syphilis testing ordered today. #Facial hyperpigmentation: She has been using [id number] products without relief, has been seeing an community health consultant. Patient requesting tretinoin today, plan to send test and start tretinoin if test is negative. Total time spent today was 60 minutes of which greater than 50% was spent on coordinating and counseling All questions have been answered to patient's satisfaction. Patient verbalized understanding of diagnosis and treatments explained. Advised to call sooner prior to next visit it any questions/concerns arise. Case discussed with collaborating physician Roz Milner who reviewed the assessment and plan. Chart, medications, labs, vital signs reviewed. Dictation was accomplished with the use of [employer] voice recognition software, which is prone to medical misidentifications and grammatical errors. This are unintentional and the practitioner does try to identify and correct these, but some could still be present. Please do not hesitate to contact practitioner for clarification. 02/13/2025 Hyperpigmentation of skin (ICD-10 - L81.9) María is a 34-year-old female with past medical history of migraines, blepharitis of bilateral eyes who presents for physical exam. #Health maintenance: Declines flu shot, COVID-vaccine 2020, Tdap 2022. Most recent Pap smear 11/2023. Upcoming appointment with [facility] 04/2025. PHQ-9 is 2, HCP filled out today, scanned in chart. #Migraines: Follows with neurology at [facility], on average every 6 months. She recently started Emgality and reports significant relief in symptoms. Continue Emgality, along with sumatriptan 50 mg as needed, topiramate 100 mg twice daily. #Blepharitis: On exam, no crusting, discoloration, edema. Continue following with [facility]. #Iron deficiency anemia: On labs obtained 01/30/2025, CBC shows hemoglobin 10.5, hematocrit 35.3, ferritin level of 5, total iron 24, percent saturation 6. Continue iron supplementation daily. Encouraged to take this with vitamin C for better absorption. #Vitamin D deficiency: 01/30/2025, vitamin D was 13. Continue with supplementation. #Proteinuria/hematur ia: Urinalysis 01/30/2025 shows cloudy urine, 3+ occult blood, 2+ protein, 10-20 RBC, 10-20 hyaline casts. Repeat urinalysis shows 3+ occult blood, 2+ protein, over 60 RBCs. Protein to creatinine ratio was 398, protein total 53. INALL negative. CMP showed creatinine and BUN within normal limits, patient denies any urinary symptoms. Plan for bilateral kidney and bladder ultrasound. Plan for labs including C3 complement, C4 complement, antistreptolysin O antibody, antiglomerular basement antibody, anti-DNA Ds antibody. Patient offered nephrology referral, however, she states she does not need a referral due to her insurance, and she will call [place] [facility]. #Facial hyperpigmentation: Continue tretinoin once daily at bedtime. Urine test was negative. #Pharyngitis: Patient was exposed to strep, and a few days later developed erythematous sore throat. Today, symptoms have been improving as she has been on amoxicillin. Continue course of amoxicillin. Follow-up in 3 months. Patient seen and examined. Comprehensive discussion was done on the following. 1. Nutrition: It is important to follow a healthy diet based on lots of vegetables and legumes and good fat. Avoid processed food and processed carbohydrates. Prepare your own meals. Read labels and avoid high fructose corn syrup, processed chemicals added to increase shelf life and preprepared meals. Avoid fast foods. Eat slowly and plan meals for a week. Try to count calories and be mindful off daily calorie intake. Get into the habit of keeping an eye on your weight by using an appropriate scale. Learn to log exercise and discussed fitness Apps like [employer] or [employer] which can help keep log off calories taken versus calories burned. Local food should be preferred. Discussed D[employer]zen Versus Clean Fifteen. Discussed healthy supplements like fish oil, Tumeric, Curcumin, Melatonin, Resveratrol, Probiotics, Vitamin-D, Alpha-Lipoic acid, Vitamin-D and coconut oil. 2. It is important to exercise regularly. Is a good habit to walk at least 30 minutes a day. Gentle weightlifting with standard precautions to protect the back. Finding activity like cycling or hiking and get into the habit of engaging in it. Stretching before and after the exercises important. It is also important to contact me if there are any problems like shortness of breath, chest pain, back pain and joint or muscle pain associated with the exercise. 3. Discussed age appropriate screening guidelines. Colonoscopy needs to start at age 50 with stool for occult blood as appropriate. There is a new test that can test for genetic abnormalities in the stool sample, Cologuard. This would not replace a colonoscopy but could be used as a screening tool for patients who do not want a colonoscopy. We discussed the importance of early detection of colon cancer. 4. Discussed current guidelines with respect to breast examination, mammogram and pap smear for early detection of breast and cervical cancer. Patient advised to follow up with these appointments. 5. Discussed safe driving and no use of smart phone while driving 6. Age-appropriate immunizations were discussed. A tetanus booster is needed every 10 years. Flu vaccine is recommended every year just before the start of the flu season. Shingles vaccine is recommended after age 50 but not all insurances cover it. Pneumonia vaccine is given after age 65 unless there are certain comorbidities for which it is started earlier. 7. Diagnostic labs were discussed. These could include/not limited to CBC CMP and lipids with fasting blood glucose and insulin levels. Vitamin D and hemoglobin A1c testing might be appropriate. All questions have been answered to patient's satisfaction. Patient verbalized understanding of diagnosis and treatments explained. Advised to call sooner prior to next visit it any questions/concerns arise. Case discussed with collaborating physician Roz Milner who reviewed the assessment and plan. Chart, medications, labs, vital signs reviewed. Dictation was accomplished with the use of [employer] voice recognition software, which is prone to medical misidentifications and grammatical errors. This are unintentional and the practitioner does try to identify and correct these, but some could still be present. Please do not hesitate to contact practitioner for clarification. Plan Of Treatment Pending Test Test Name Order Date Ultrasound : Kidneys, bilateral 02/14/20 25 Test, Urine 02/05/2025 Antistreptolysin O Ab 02/13/2025 Antiglomerular BM Ab, Qn 02/13/2025 NIALL w/Reflex 02/05/2025 Urinalysis 02/02/2025 CHLAMYDIA GC AMP PROBE, URINE 01/30/2025 FERRITIN 02/02/2025 IRON & TIBC 02/02/2025 , BLOOD, QUANTITATIVE Protein Creatinine Ratio Random Urine HIV 1 AND 2 SCREEN 01/30/2025 FOLATE 02/02/2025 PPC Strep Test 01/30/2025 C4 COMPLEMENT 02/13/2025 C3 COMPLEMENT 02/13/2025 ANTI-DNA ANTIBODY, DOUBLE-STRANDED 02/13 Next Appt Details Provider Name:Malena Chenemani werner, 05/05/2025 10:00:00 AM, [address] [facility], [facility] [address], [place], [address], Insurance Providers Payer Name Payer Address Payer Phone Subscriber Number Group Number Insured Name Patient Relationship to Insured Coverage Start Date Coverage End Date [facility] [address] [place] [address] [id number] Roosevelt Stephensonjossue María Self - patient is the insured Medical (General) History Medical History History ICD Code Migraine syndrome G43.909 Blepharitis of both upper and lower eyel id of right eye, unspecified type H01.00A Surgical History Surgery Date(Month/Year) colonoscopy 17 y/o laparoscopy 16 y/o
== END 2025-02-23 14:04 | disposition home or self-care (01) ==
LOC: HO.LAB 14:03
PROVIDERS: Visit Provider Internal Medicine Nephrology
DX: R80.8 Other proteinuria (principal); R31.29 Other microscopic hematuria
CPT/HCPCS: 36415; 80051; 81001; 82565; 82570; 84156; 84520

== ENCOUNTER 2025-02-27 14:39 | Outpatient (AMB) | payer OTHER, SELFPAY ==
--- NOTE | 2025-02-27 14:41 | HO.NEPHOV_ITS ---
Vital Signs 02/27/25 14:44 Weight 162 lb 4 oz BP 118/80 Blood Pressure Location Rt brachial Position Sitting Pulse 65 Pulse Source Pulse Oximeter Pulse Oximetry (%) 100 Oxygen Delivery Method Room Air Intake Visit Reasons: FU-Conf Intake Note: Patient here for a follow-up. 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 Hospitalized in October 2023 with dark urine and general malaise, urine culture was negative. Her renal function was and remains normal. Since that time she has been followed by Dr Gil for workup and monitoring of ongoing microscopic hematuria. patient reports today that she had lab work done ~1 montha go through her PCP and had protein in her urine. Most recent UA from 02/23/25 was negative for protein, +microscopic hematuria. No other cells. She denies flank pain, passing grit or gravel in the urine. She has no pedal edema. She has no epistaxis, hemoptysis, macroscopic hematuria, hematemesis or melena. She has no hearing deficits. She reports taking topamax for migraines- denies use of NSAIDs. She does not have any known family history of renal disease- note mother and other family members have kidney stones. she states PCP has already ordered a renal US which is scheduled for early next week. 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[employer] Female Reproductive History Menstrual Age of Menarche: 12 Review of Systems Const All systems reviewed & are unremarkable except as noted in HPI and below Physical Exam Vital Signs: Last Vital Signs Pulse 65 02/27/25 14:44 BP 118/80 02/27/25 14:44 Pulse Ox 100 02/27/25 14:44 Oxygen Delivery Method Room Air 02/27/25 14:44 Const General: comfortable and no acute distress Orientation/consciousness: patient oriented x3 HEENT Head: Yes normocephalic Mouth: Normal oral and palatal mucosa present Eyes EOM: EOMs intact bilaterally Neck Neck: Yes supple Resp Auscultation: clear to auscultation bilaterally Cardio Jugular venous distension: no JVD Rate: regular rate GI Palpation (GI): Soft to palpation Auscultation: normal bowel sounds General: Yes no CVA tenderness Back/Spine/Pelvis Back: no CVA tenderness Skin General skin exam: no rashes or lesions noted Neuro General: patient oriented x3 and moves all extremities Extrem General: Yes no pedal edema Results Reviewed Nephrology Results: Hgb, (12.0-16.0) 10.3 g/dl L 11/05/23 WBC, (4.8-10.8) 6.8 X10*3/uL 11/05/23 Plt Count, (160-400) 360 X10*3/uL 11/05/23 Sodium, (135-145) 139 mmol/L 02/23/25 Potassium, (3.3-5.1) 3.9 mmol/L 02/23/25 Chloride, (96-108) 111 mmol/L H 02/23/25 Carbon Dioxide, (22-29) 21 mmol/L L 02/23/25 BUN, (9-16) 11 mg/dL 02/23/25 Creatinine, (0.5-1.4) 0.65 mg/dL 02/23/25 Calcium, (8.4-10.2) 9.6 mg/dL 11/05/23 Urine Protein, (Neg-Trace) Negative mg/dL 02/23/25 Urine Creatinine 65.26 mg/dL 02/23/25 Protein/Creatinin Ratio, (<0.2) 0.14 02/23/25 Assessment & Plan Assessment & Plan (1) Microscopic hematuria: Code(s): R31.29 - Other microscopic hematuria Category: Medical (2) Microscopic hematuria: Code(s): R31.29 - Other microscopic hematuria Category: Medical Plan María has microscopic hematuria with intermittent proteinuria. Her renal functions are normal. Her blood pressure is normal as well. 24 hour urine for protein was negative- we will repeat this again in 6 months. IgA nephropathy is most likely given intermittent proteinuria, persistent hematuria with normal renal function. Differential also includes is thin membrane disease, renal stones, [place]. C3 was low with marginally high IgA. There is no need for renal biopsy now. She has H/O endometriosis- she will discuss with her [employer]. She is getting a renal US through her PCP and will have them forward results to our office. She was encouraged to maintain good hydration, minimize salt intake, exercise regularly and maintain a healthy body weight. Answered all questions. Follow-up appointment given. Orders: Orders Protein, 24 Hr Urine Group 6 Months R31.29 - Other microscopic hematuria Basic Metabolic Panel 6 Months R31.29 - Other microscopic hematuria UA CC w/rflx Micro + Cult 6 Months R31.29 - Other microscopic hematuria Coding Level of Care Code Est Pt Level 4 (07099) Diagnoses Microscopic hematuria R31.
[2025-02-27 14:44] VITALS: BP 118/80; PULSE 65; O2SAT 100
--- OUTSIDE RECORDS SUMMARY | 2025-02-27 14:57 | XMS_ITS | Patient Health Record ---
Author Organization [facility] [address] [address] Address [address] [place] [address] Care Team Providers Care Javascript Engineer Name Role Phone Malena Alcocer Unavailable [phone] Allergies Allergen (clinical drug ingredient) Drug/Non Drug Allergy documented on EMR Reaction Allergy Type Onset Date Status Latex Latex hives Allergy Active Results Component Value Reference Range Notes DNA (DS) ANTIBODY Reviewed date:02/20/2025 12:08:57 PM Interpretation: Performing Lab:[facility], [facility] [place] [id number] Deisy Obrien Notes/Report: FASTING: YES FASTING:YES DNA (DS) ANTIBODY <1 IU/mL Interpretation < or = 4 Negative 5-9 Indeterminate > or = 10 Positive COMPLEMENT COMPONENT C4C Reviewed date:02/20/2025 12:08:57 PM Interpretation: Performing Lab:[facility] Deisy Obrien Notes/Report: FASTING:YES FASTING: YES COMPLEMENT COMPONENT C4C 22 15-57 mg/dL COMPLEMENT COMPONENT C3C Reviewed date:02/20/2025 12:08:57 PM Interpretation: Performing Lab:[facility], [facility] Deisy Obrien Notes/Report: FASTING:YES FASTING: YES COMPLEMENT COMPONENT C3C 134 83-193 mg/dL GLOMERULAR BASEMENT MEMBRANE ANTIBODY (IGG) Reviewed date:02/20/2025 12:08:57 PM Interpretation: Performing Lab:[facility] De[facility] Notes/Report: FASTING:YES FASTING: YES GLOMERULAR BASEMENT MEMBRANE ANTIBODY (IGG) <1.0 Value Interpretation ----- <1.0 No Antibody Detected > or = 1.0 Antibody Detected ANTI-STREPTOLYSIN O Reviewed date:02/20/2025 12:08:57 PM Interpretation: Performing Lab:NL2, [facility] [id number] [facility] Notes/Report: FASTING: YES FASTING:YES ANTI-STREPTOLYSIN O 196 <200 IU/mL VITAMIN D,25-OH,TOTAL,IA Reviewed date:02/02/2025 04:52:38 PM Interpretation: Performing Lab:NL2, [facility] [facility] Notes/Report: FASTING: YES FASTING:YES VITAMIN D,25-OH,TOTAL,IA 13 30-100 ng/mL Vitamin D Status 25-OH Vitamin D: Deficiency: <20 ng/mL Insufficiency: 20 - 29 ng/mL Optimal: > or = 30 ng/mL For 25-OH Vitamin D testing on patients on D2-supplementation and patients for whom quantitation of D2 and D3 fractions is required, the QuestAssureD(TM) 25-OH VIT D, (D2,D3), LC/MS/MS is recommended: order code 14703 (patients >2yrs). See Note 1 Note 1 For additional information, please refer to http://education.KelDoc.Fathom Online/faq/BJK010 (This link is being provided for informational/ educational purposes only.) TSH Reviewed date:02/02/2025 04:48:26 PM Interpretation: Performing Lab:NLClubKviar, [facility] [facility] Notes/Report: FASTING:YES FASTING: YES TSH 2.23 Reference Range > or = 20 Years 0.40-4.50 Ranges First trimester 0.26-2.66 Second trimester 0.55-2.73 Third trimester 0.43-2.91 VITAMIN B12 Reviewed date:02/02/2025 04:48:26 PM Interpretation: Performing Lab:[facility], [facility] [facility] Joel Mosesskye Notes/Report: FASTING:YES FASTING: YES VITAMIN B12 342 625-2174 pg/mL Please Note: Although the reference range for vitamin B12 is 200-1100 pg/mL, it has been reported that between 5 and 10% of patients with values between 200 and 400 pg/mL may experience neuropsychiatric and hematologic abnormalities due to occult B12 deficiency; less than 1% of patients with values above 400 pg/mL will have symptoms. HEMOGLOBIN A1c Reviewed date:02/02/2025 04:48:26 PM Interpretation: Performing Lab:[facility] [place] [id number] [facility] Joel [facility] Notes/Report: FASTING:YES FASTING: YES HEMOGLOBIN A1c 5.5 [...] diagnosis of diabetes in children. According to [place] [employer] (ADA) guidelines, hemoglobin A1c <7.0% represents optimal control in non- diabetic patients. Different metrics may apply to specific patient populations. Standards of Medical Care in Diabetes(ADA). RPR (MONITOR) W/REFL TITER Reviewed date:02/02/2025 04:48:26 PM Interpretation: Performing Lab:[facility], [facility] [facility] Joel [facility] Notes/Report: FASTING:YES FASTING: YES RPR (MONITOR) W/REFL TITER NON-REACTIVE NON-REACTIVE URINALYSIS, COMPLETE Reviewed date:02/02/2025 04:52:38 PM Interpretation: Performing Lab:NL2, [facility] [facility] Joel [facility] Notes/Report: FASTING:YES FASTING: YES COLOR YELLOW YELLOW [...] elements. Only those elements seen were reported. CBC (INCLUDES DIFF/PLT) Reviewed date:02/02/2025 04:52:38 PM Interpretation: Performing Lab:2, [facility] Deisy Obrien Notes/Report: FASTING:YES FASTING: YES [...] MPV 11.2 7.5-12.5 fL ABSOLUTE NEUTROPHILS 4173 [phone] cells/uL ABSOLUTE LYMPHOCYTES 1483 178-7506 cells/uL ABSOLUTE MONOCYTES 435 200-950 cells/uL ABSOLUTE EOSINOPHILS 38 15-500 cells/uL ABSOLUTE BASOPHILS 32 0-200 cells/uL NEUTROPHILS 65.2 LYMPHOCYTES 26.9 MONOCYTES 6.8 EOSINOPHILS 0.6 BASOPHILS 0.5 COMPREHENSIVE METABOLIC PANE L Reviewed date:02/02/2025 04:48:26 PM Interpretation: Performing Lab:2, [facility] Deisy Obrien Notes/Report: FASTING:YES FASTING: YES GLUCOSE [...] 25 10-30 U/L ALT 21 6-29 U/L LIPID PANEL, STANDARD Reviewed date:02/02/2025 04:52:38 PM Interpretation: Performing Lab:NL2, [facility] [address] Deisy Obrien Notes/Report: FASTING:YES FASTING: YES CHOLESTEROL, TOTAL 191 <200 mg/dL HDL CHOLESTEROL 56 > OR = 50 mg/dL TRIGLYCERIDES 51 <150 mg/dL LDL-CHOLESTEROL 121 Reference range: <100 Desirable range <100 mg/dL for primary prevention; <70 mg/dL for patients with CHD or diabetic patients with > or = 2 CHD risk factors. LDL-C is now calculated using the Werner calculation, which is a validated novel method providing better accuracy than the Friedewald equation in the estimation of LDL-C. Galileo SS et al. KENNETH. 2013;310(19): 5342-4059 (http://education.ArtVenue.Fathom Online/faq/NIQ236) CHOL/HDLC RATIO 3.4 <5.0 (calc) NON HDL CHOLESTEROL 135 <130 mg/dL (calc) For patients with diabetes plus 1 major ASCVD risk factor, treating to a non-HDL-C goal of <100 mg/dL (LDL-C of <70 mg/dL) is considered a therapeutic option. NIALL SCREEN, IFA, W/REFL TITE R AND PATTERN Reviewed date:02/10/2025 11:42:12 AM Interpretation: Performing Lab:[facility]PH[facility]ar, [facility] Deisy Obrien Notes/Report: FASTING:NO FASTING: NO NIALL SCREEN, IFA NEGATIVE NEGATIVE NIALL IFA [...] Negative International Consensus on NIALL Patterns (https://doi.org/10.1515/cc ja-0131-9727) For additional information, please refer to http://education.BBE/faq/HUB457 (This link is being provided for informational/ educational purposes only.) HCG, QL, URINE Reviewed date:02/10/2025 11:42:12 AM Interpretation: Performing Lab:[facility]PH[facility], [facility] Deisy Obrien Notes/Report: FASTING:NO FASTING: NO HCG, QL, URINE NEGATIVE NEGATIVE FERRITIN Reviewed date:02/05/2025 04:46:47 PM Interpretation: Performing Lab:[facility], [facility] Deisy Obrien Notes/Report: FERRITIN 5 16-154 ng/mL FOLATE, SERUM Reviewed date:02/05/2025 04:46:47 PM Interpretation: Performing Lab:[facility], [facility] Deisy Obrien Notes/Report: FOLATE, SERUM 11.0 Reference Range Low: <3.4 Borderline: 3.4-5.4 Normal: >5.4 URINALYSIS REFLEX Reviewed date:02/05/2025 04:46:47 PM Interpretation: Performing Lab:[facility] [place] [id number] Deisy Obrien Notes/Report: COLOR YELLOW YELLOW APPEARANCE CLEAR CLEAR [...] URINE Reviewed date:02/06/2025 12:52:54 PM Interpretation: Performing Lab:[facility]PH[facility] Ena Joel Obrien Notes/Report: CREATININE, RANDOM URINE 136 20-275 mg/dL PROTEIN/CREATININE RATIO 390 24-184 mg/g crea t PROTEIN/CREATININE RATIO 0.390 0.024-0 .184 mg/mg creat PROTEIN, TOTAL, RANDOM UR 53 5-24 mg/dL IRON AND TOTAL IRON BINDING CAPACITY Reviewed date:02/05/2025 04:46:47 PM Interpretation: Performing Lab:[facility] [address] Deisy Obrien Notes/Report: IRON, TOTAL 24 40-190 mcg/dL IRON BINDING CAPACITY 397 250-450 mc g/dL (calc) % SATURATION 6 16-45 % (calc) CHLAMYDIA/N. GONORRHOEAE RNA , TMA, UROGENITAL Reviewed date:02/02/2025 04:48:26 PM Interpretation: Performing Lab:[facility]ana [facility] [address] Deisy Obrien Notes/Report: FASTING:YES FASTING: YES CHLAMYDIA TRACHOMATIS RNA, TMA, UROGENITAL NOT DETECTED NOT DETECTED NEISSERIA GONORRHOEAE RNA, TMA, UROGENITAL NOT DETECTED NOT DETECTED COMMENT The analytical performance characteristics of this assay, when used to test SurePath(TM) specimens have been determined by [facility]. The modifications have not been cleared or approved by the FDA. This assay has been validated pursuant to the CLIA regulations and is used for clinical purposes. For additional information, please refer to https://education.Eyewitness Surveillance/faq/XNW435 (This link is being provided for information/ educational purposes only.) HIV 1/2 ANTIGEN/ANTIBODY,FOU RTH GENERATION W/RFL Reviewed date:02/02/2025 04:48:26 PM Interpretation: Performing Lab:NL2, [facility] Deisy Obrien Notes/Report: FASTING:YES FASTING: YES HIV AG/AB, 4TH [...] purpose. For additional information please refer to http://education.VB Rags.Fathom Online/faq/ORH976 (This link is being provided for informational/ educational purposes only.) The performance of this assay has not been clinically validated in patients less than 2 years old. NOTE Reviewed date:02/05/2025 04:46:47 PM Interpretation: Performing Lab:NL2, [facility] Deisy Obrien Notes/Report: NOTE This urine was analyzed for the presence of WBC, RBC, bacteria, casts, and other formed elements. Only those elements seen were reported. Reason For Referral No Information Medications Medication SIG (Take, Route, Frequency, Duration) Notes Start Date End Date Status Cholecalciferol 25 MCG (1000 UT) 1 capsule Orally Once a day; Duration: 30 days 02/02/2025 Active Triamcinolone Acetonide 0.025 % 1 application Externally Twice a day; Duration: 14 days 01/30/2025 Active Amoxicillin 500 MG 1 capsule Orally twi ce a day; Duration: 10 days 02/05/2025 Active Iron (Ferrous Sulfate) 325 (65 Fe) MG 1 tablet Orally daily; Duration: 90 days 02/05/2025 Active Tretinoin 0.05 % 1 application in the evening to face Externally Once a day; Duration: 30 days 02/10/2025 Active SUMAtriptan Succinate 50 MG Oral; Duration: 30 Days Active Multi Vitamin Active Emgality 120 MG/ML as directed Subcutaneous 2024 Active Topiramate 100 MG 1 tablet Orally twic e a day; Duration: 30 days Active Problems Problem Type SNOMED Code ICD Code Onset Dates Problem Status W/U Status Risk Notes Problem Vitamin B>12< deficiency anaemia (30494284) Anemia due to vitamin B12 deficiency, unspecified B12 deficiency type (D51.9) Active confirmed Problem Avitaminosis D (00097051) Avitaminosis D (E55.9) Active confirmed Problem Iron deficiency anemia secondary to inadequate dietary iron intake (921937042) 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) Active confirmed Problem Autoimmune disease (55374330) Autoimmune disease (M35.9) Active confirmed Problem Anemia (618104587) Anemia (D64.9) Active confirmed Problem Atopic dermatitis (53251293) Atopic dermatitis, mild (L20.9) Active confirmed Problem Migraine (44751909) Migraine syndrome (G43.909) Active confirmed Vital Signs Heart Rate 80 /min 02/13/2025 Oximetry 97 % 02/13/2025 Blood pressure diastolic 82 mm Hg 02/13/2025 Height 67 in 02/13/2025 Blood pressure systolic 124 mm Hg 02/13/2025 Weight 161.7 lbs 02/13/2025 BMI 25.32 kg/m2 02/13/2025 Encounters Encounter Location Date Provider Diagnosis [facility] [address] [place] [id number] 02/13/2025 Malena Alcocer Annual physical exam Z00.00 [...] of skin L81.9 [facility] [address] 01/30/2025 Malnea Normoyle Sore throat J02.9 ; Migraine syndrome G43.909 ; Atopic dermatitis, mild L20.9 ; Hyperpigmentation L81.9 ; Unprotected sex Z72.51 ; Abnormal vaginal Pap smear R87.629 ; Encounter for examination of blood pressure without abnormal findings Z01.30 and Unprotected sexual intercourse Z72.51 [facility] [address] 01/30/2025 Amlena Normoyle [facility] [address] 02/02/2025 Malena Normoyle [facility] [address] 02/02/2025 Malena Normoyle Abnormal urine R82.9 0 ; Generalized rash R21 and Anemia D64.9 [facility] [address] 02/05/2025 Malena Normoyle [facility] [address] 02/05/2025 Malena Normoyle Unprotected sex Z72. 51 and Autoimmune disease M35.9 [facility] [address] 02/05/2025 Malena Normoyle [facility] [address] 02/10/2025 Malena Normoyle [facility] [address] 02/16/2025 Malena Normoyle [facility] [address] [address] 02/23/2025 Malena Normoyle Assessments Encounter Date Diagnosis (ICD Code) Assessment Notes Treatment Notes Treatment Clinical Notes Section Notes 01/30/2025 Sore throat (ICD-10 - J02.9) Patient is welcomed to the practice. They are coming from [place] [facility]. Last complete physical exam with [...] biopsy in 2020. Will request records from [facility]. Patient encouraged to call [facility] for appointment. She has 2 COVID shots, declines influenza, she is unsure when her last Tdap was, will request records today. #Migraines: Patient has been struggling with migraines for most of her life. She follows with neurology in [place], most recently this year, will request records. She is taking topiramate 100 mg twice daily, sumatriptan 50 mg as needed, and recently started Emgality and has had 2 injections. She reports since starting Emgality, she has not needed any sumatriptan and states her migraines have been more well-controlled. Continue current regimen. 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 On exam today, no erythema, scaling, [...] today. #Facial hyperpigmentation: She has been using vtav-sxg-[id number] products without relief, has been seeing an bone char kiln operator. Patient requesting tretinoin today, plan to send [...] Dictation was accomplished with the use of fabrooms voice recognition software, which is prone to medical misidentifications and grammatical errors. This are unintentional and the practitioner does try to identify and correct these, but some could still be present. Please do not hesitate to contact practitioner for clarification. 01/30/2025 Migraine syndrome (ICD-10 - G43.909) Patient is welcomed to the practice. They are coming from [place] [facility]. Last complete physical exam with [...] biopsy in 2020. Will request records from [facility]. Patient encouraged to call [facility] for appointment. She has 2 COVID shots, declines influenza, she is unsure when her last Tdap was, will request records today. #Migraines: Patient has been struggling with migraines for most of her life. She follows with neurology in [place], most recently this year, will request records. She is taking topiramate 100 mg twice daily, sumatriptan 50 mg as needed, and recently started Emgality and has had 2 injections. She reports since starting Emgality, she has not needed any sumatriptan and states her migraines have been more well-controlled. Continue current regimen. 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 On exam today, no erythema, scaling, [...] today. #Facial hyperpigmentation: She has been using tgaz-nsg-yehggte products without relief, has been seeing an bone char kiln operator. Patient requesting tretinoin today, plan to send [...] Dictation was accomplished with the use of fabrooms voice recognition software, which is prone to [...] recent Pap smear 11/2023. Upcoming appointment with [facility] 04/2025. PHQ-9 is 2, HCP filled out today, scanned in chart. #Migraines: Follows with neurology at [facility], on average every 6 months. She recently started Emgality and reports significant relief in symptoms. Continue Emgality, along with sumatriptan 50 mg as needed, topiramate 100 mg twice daily. #Blepharitis: On exam, no crusting, discoloration, edema. Continue following with [facility]. #Iron deficiency anemia: On labs obtained [...] to her insurance, and she will call [place] [facility]. #Facial hyperpigmentation: Continue tretinoin once daily [...] log exercise and discussed fitness Apps like TripsByTips or enMarkit which can help keep log off calories [...] Dictation was accomplished with the use of fabrooms voice recognition software, which is prone to [...] recent Pap smear 11/2023. Upcoming appointment with [facility] 04/2025. PHQ-9 is 2, HCP filled out today, scanned in chart. #Migraines: Follows with neurology at [facility], on average every 6 months. She recently started Emgality and reports significant relief in symptoms. Continue Emgality, along with sumatriptan 50 mg as needed, topiramate 100 mg twice daily. #Blepharitis: On exam, no crusting, discoloration, edema. Continue following with [facility]. #Iron deficiency anemia: On labs obtained [...] to her insurance, and she will call [place] [facility]. #Facial hyperpigmentation: Continue tretinoin once daily [...] log exercise and discussed fitness Apps like TripsByTips or Integrated Medical Partnersometer which can help keep log off calories [...] Dictation was accomplished with the use of fabrooms voice recognition software, which is prone to [...] recent Pap smear 11/2023. Upcoming appointment with [facility] 04/2025. PHQ-9 is 2, HCP filled out today, scanned in chart. #Migraines: Follows with neurology at [facility], on average every 6 months. She recently started Emgality and reports significant relief in symptoms. Continue Emgality, along with sumatriptan 50 mg as needed, topiramate 100 mg twice daily. #Blepharitis: On exam, no crusting, discoloration, edema. Continue following with [facility]. #Iron deficiency anemia: On labs obtained [...] to her insurance, and she will call [place] [facility]. #Facial hyperpigmentation: Continue tretinoin once daily [...] log exercise and discussed fitness Apps like TripsByTips or Integrated Medical Partnersometer which can help keep log off calories [...] Dictation was accomplished with the use of fabrooms voice recognition software, which is prone to [...] to the practice. They are coming from [place] [facility]. Last complete physical exam with [...] biopsy in 2020. Will request records from [facility]. Patient encouraged to call [facility] for appointment. She has 2 COVID shots, declines influenza, she is unsure when her last Tdap was, will request records today. #Migraines: Patient has been struggling with migraines for most of her life. She follows with neurology in [place], most recently this year, will request records. She is taking topiramate 100 mg twice daily, sumatriptan 50 mg as needed, and recently started Emgality and has had 2 injections. She reports since starting Emgality, she has not needed any sumatriptan and states her migraines have been more well-controlled. Continue current regimen. 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 On exam today, no erythema, scaling, [...] today. #Facial hyperpigmentation: She has been using tqru-kpj-nddulgn products without relief, has been seeing an bone char kiln operator. Patient requesting tretinoin today, plan to send [...] Dictation was accomplished with the use of fabrooms voice recognition software, which is prone to medical misidentifications and grammatical errors. This are unintentional and the practitioner does try to identify and correct these, but some could still be present. Please do not hesitate to contact practitioner for clarification. 01/30/2025 Hyperpigmentation (ICD-10 - L81.9) Patient is welcomed to the practice. They are coming from [facility]. Last complete physical exam with labs [...] biopsy in 2020. Will request records from [facility]. Patient encouraged to call [facility] for appointment. She has 2 COVID shots, declines influenza, she is unsure when her last Tdap was, will request records today. #Migraines: Patient has been struggling with migraines for most of her life. She follows with neurology in [place], most recently this year, will request records. She is taking topiramate 100 mg twice daily, sumatriptan 50 mg as needed, and recently started Emgality and has had 2 injections. She reports since starting Emgality, she has not needed any sumatriptan and states her migraines have been more well-controlled. Continue current regimen. 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 On exam today, no erythema, scaling, [...] today. #Facial hyperpigmentation: She has been using zyxc-xkr-dqoockr products without relief, has been seeing an bone char kiln operator. Patient requesting tretinoin today, plan to send [...] Dictation was accomplished with the use of fabrooms voice recognition software, which is prone to [...] recent Pap smear 11/2023. Upcoming appointment with [facility] 04/2025. PHQ-9 is 2, HCP filled out today, scanned in chart. #Migraines: Follows with neurology at [facility], on average every 6 months. She recently started Emgality and reports significant relief in symptoms. Continue Emgality, along with sumatriptan 50 mg as needed, topiramate 100 mg twice daily. #Blepharitis: On exam, no crusting, discoloration, edema. Continue following with [facility]. #Iron deficiency anemia: On labs obtained [...] to her insurance, and she will call [place] [facility]. #Facial hyperpigmentation: Continue tretinoin once daily [...] log exercise and discussed fitness Apps like [employer] Lenderspal or Integrated Medical Partnersometer which can help keep log off calories [...] Dictation was accomplished with the use of fabrooms voice recognition software, which is prone to [...] recent Pap smear 11/2023. Upcoming appointment with [facility] 04/2025. PHQ-9 is 2, HCP filled out today, scanned in chart. #Migraines: [facility] [facility] on average every 6 months. She recently started Emgality and reports significant relief in symptoms. Continue Emgality, along with sumatriptan 50 mg as needed, topiramate 100 mg twice daily. #Blepharitis: On exam, no crusting, discoloration, edema. Continue following with [facility]. #Iron deficiency anemia: On labs [...] to her insurance, and she will call [place] [facility]. #Facial hyperpigmentation: Continue tretinoin once daily [...] log exercise and discussed fitness Apps like TripsByT[employer] or [employer] which can help keep log off calories [...] Dictation was accomplished with the use of fabrooms voice recognition software, which is prone to medical misidentifications and grammatical errors. This are unintentional and the practitioner does try to identify and correct these, but some could still be present. Please do not hesitate to contact practitioner for clarification. 01/30/2025 Unprotected sex (ICD-10 - Z72.51) Patient is welcomed to the practice. They are coming from [facility]. Last complete physical exam with labs [...] biopsy in 2020. Will request records from [facility]. Patient encouraged to call [facility] for appointment. She has 2 COVID shots, declines influenza, she is unsure when her last Tdap was, will request records today. #Migraines: Patient has been struggling with migraines for most of her life. She follows with neurology in [place], most recently this year, will request records. She is taking topiramate 100 mg twice daily, sumatriptan 50 mg as needed, and recently started Emgality and has had 2 injections. She reports since starting Emgality, she has not needed any sumatriptan and states her migraines have been more well-controlled. Continue current regimen. 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 On exam today, no erythema, scaling, [...] today. #Facial hyperpigmentation: She has been using zdxc-dio-erhcfzp products without relief, has been seeing an bone char kiln operator. Patient requesting tretinoin today, plan to send [...] Dictation was accomplished with the use of fabrooms voice recognition software, which is prone to medical misidentifications and grammatical errors. This are unintentional and the practitioner does try to identify and correct these, but some could still be present. Please do not hesitate to contact practitioner for clarification. 01/30/2025 Abnormal vaginal Pap smear (ICD-10 - R87.629) Patient is welcomed to the practice. They are coming from [place] [facility]. Last complete physical exam with [...] biopsy in 2020. Will request records from [facility]. Patient encouraged to call [facility] for appointment. She has 2 COVID shots, declines influenza, she is unsure when her last Tdap was, will request records today. #Migraines: Patient has been struggling with migraines for most of her life. She follows with neurology in [place], most recently this year, will request records. She is taking topiramate 100 mg twice daily, sumatriptan 50 mg as needed, and recently started Emgality and has had 2 injections. She reports since starting Emgality, she has not needed any sumatriptan and states her migraines have been more well-controlled. Continue current regimen. 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 On exam today, no erythema, scaling, [...] today. #Facial hyperpigmentation: She has been using mhtj-ghy-etrochc products without relief, has been seeing an bone char kiln operator. Patient requesting tretinoin today, plan to send [...] Dictation was accomplished with the use of fabrooms voice recognition software, which is prone to [...] recent Pap smear 11/2023. Upcoming appointment with [facility] 04/2025. PHQ-9 is 2, HCP filled out today, scanned in chart. #Migraines: Follows with neurology at [facility], on average every 6 months. She recently started Emgality and reports significant relief in symptoms. Continue Emgality, along with sumatriptan 50 mg as needed, topiramate 100 mg twice daily. #Blepharitis: On exam, no crusting, discoloration, edema. Continue following with [facility]. #Iron deficiency anemia: On labs [...] to her insurance, and she will call [place] [facility]. #Facial hyperpigmentation: Continue tretinoin once daily [...] log exercise and discussed fitness Apps like [employer] or [employer] which can help keep log off calories [...] Dictation was accomplished with the use of fabrooms voice recognition software, which is prone to [...] recent Pap smear 11/2023. Upcoming appointment with [facility] 04/2025. PHQ-9 is 2, HCP filled out today, scanned in chart. #Migraines: Follows with neurology at [facility], on average every 6 months. She recently started Emgality and reports significant relief in symptoms. Continue Emgality, along with sumatriptan 50 mg as needed, topiramate 100 mg twice daily. #Blepharitis: On exam, no crusting, discoloration, edema. Continue following with [facility]. #Iron deficiency anemia: On labs [...] to her insurance, and she will call [place] [facility]. #Facial hyperpigmentation: Continue tretinoin once daily [...] log exercise and discussed fitness Apps like [employer] or [employer] which can help keep log off calories [...] Dictation was accomplished with the use of fabrooms voice recognition software, which is prone to medical misidentifications and grammatical errors. This are unintentional and the practitioner does try to identify and correct these, but some could still be present. Please do not hesitate to contact practitioner for clarification. 01/30/2025 Encounter for examination of blood pressure without abnormal findings (ICD-10 - Z01.30) Patient is welcomed to the practice. They are coming from [facility]. Last complete physical exam with labs [...] biopsy in 2020. Will request records from [facility]. Patient encouraged to call [facility] for appointment. She has 2 COVID shots, declines influenza, she is unsure when her last Tdap was, will request records today. #Migraines: Patient has been struggling with migraines for most of her life. She follows with neurology in [place], most recently this year, will request records. She is taking topiramate 100 mg twice daily, sumatriptan 50 mg as needed, and recently started Emgality and has had 2 injections. She reports since starting Emgality, she has not needed any sumatriptan and states her migraines have been more well-controlled. Continue current regimen. 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 On exam today, no erythema, scaling, [...] today. #Facial hyperpigmentation: She has been using jswl-lge-qtpwvks products without relief, has been seeing an bone char kiln operator. Patient requesting tretinoin today, plan to send [...] Dictation was accomplished with the use of fabrooms voice recognition software, which is prone to [...] recent Pap smear 11/2023. Upcoming appointment with [facility] 04/2025. PHQ-9 is 2, HCP filled out today, scanned in chart. #Migraines: Follows with neurology at [facility], on average every 6 months. She recently started Emgality and reports significant relief in symptoms. Continue Emgality, along with sumatriptan 50 mg as needed, topiramate 100 mg twice daily. #Blepharitis: On exam, no crusting, discoloration, edema. Continue following with [facility]. #Iron deficiency anemia: On labs [...] to her insurance, and she will call [place] [facility]. #Facial hyperpigmentation: Continue tretinoin once daily [...] log exercise and discussed fitness Apps like [employer] or [employer] which can help keep log [...] Dictation was accomplished with the use of fabrooms voice recognition software, which is prone to [...] recent Pap smear 11/2023. Upcoming appointment with [facility] 04/2025. PHQ-9 is 2, HCP filled out today, scanned in chart. #Migraines: Follows with neurology at [facility], on average every 6 months. She recently started Emgality and reports significant relief in symptoms. Continue Emgality, along with sumatriptan 50 mg as needed, topiramate 100 mg twice daily. #Blepharitis: On exam, no crusting, discoloration, edema. Continue following with [facility]. #Iron deficiency anemia: On labs [...] to her insurance, and she will call [place] [facility]. #Facial hyperpigmentation: Continue tretinoin once daily [...] log exercise and discussed fitness Apps like [employer] or [employer] Partners[employer] which can help keep log off calories [...] Dictation was accomplished with the use of fabrooms voice recognition software, which is prone to medical misidentifications and grammatical errors. This are unintentional and the practitioner does try to identify and correct these, but some could still be present. Please do not hesitate to contact practitioner for clarification. 01/30/2025 Unprotected sexual intercourse (ICD-10 - Z72.51) Patient is welcomed to the practice. They are coming from [facility]. Last complete physical exam with labs [...] biopsy in 2020. Will request records from [facility]. Patient encouraged to call [facility] for appointment. She has 2 COVID shots, declines influenza, she is unsure when her last Tdap was, will request records today. #Migraines: Patient has been struggling with migraines for most of her life. She follows with neurology in [place], most recently this year, will request records. She is taking topiramate 100 mg twice daily, sumatriptan 50 mg as needed, and recently started Emgality and has had 2 injections. She reports since starting Emgality, she has not needed any sumatriptan and states her migraines have been more well-controlled. Continue current regimen. 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 On exam today, no erythema, scaling, [...] today. #Facial hyperpigmentation: She has been using mgup-xag-wykmhkk products without relief, has been seeing an bone char kiln operator. Patient requesting tretinoin today, plan to send [...] Dictation was accomplished with the use of fabrooms voice recognition software, which is prone to [...] recent Pap smear 11/2023. Upcoming appointment with [facility] 04/2025. PHQ-9 is 2, HCP filled out today, scanned in chart. #Migraines: Follows with neurology at [facility], on average every 6 months. She recently started Emgality and reports significant relief in symptoms. Continue Emgality, along with sumatriptan 50 mg as needed, topiramate 100 mg twice daily. #Blepharitis: On exam, no crusting, discoloration, edema. Continue following with [facility]. #Iron deficiency anemia: On labs obtained [...] to her insurance, and she will call [place] [facility]. #Facial hyperpigmentation: Continue tretinoin once daily [...] log exercise and discussed fitness Apps like [employer]ByT[employer] or [employer] Partners[employer] which can help keep log off calories [...] Dictation was accomplished with the use of fabrooms voice recognition software, which is prone to [...] DOUBLE-STRANDED 02/13 Next Appt Details Provider Name:Malena werner, 05/05/2025 10:00:00 AM, [address] [facility], [facility] [address], [place], [address], Insurance Providers Payer Name Payer Address Payer Phone Subscriber Number Group Number Insured Name Patient Relationship to Insured Coverage Start Date Coverage End Date [facility] [address] [place] [address] [phone] [id number] María William Self - patient is the insured Medical (General) History Medical History History ICD Code Migraine syndrome G43.909 Blepharitis of both upper and lower eyel id of right eye, unspecified type H01.00A Surgical History Surgery Date(Month/Year) colonoscopy 17 y/o laparoscopy 16 y/o
== END 2025-02-27 15:26 | disposition home or self-care (01) ==
LOC: HO.HKA 14:39
PROVIDERS: Visit Provider Internal Medicine Nephrology
DX: R31.29 Other microscopic hematuria (principal)
CPT/HCPCS: 99214

== ENCOUNTER 2025-07-08 08:44 | Outpatient (AMB) | payer OTHER, SELFPAY ==
--- OUTSIDE RECORDS SUMMARY | 2025-05-05 05:00 | XMS_ITS ---
Author Organization [facility] [address] Address [address] [place] [address] Care Team Providers Care Production Truck Driver Name Role Phone Malena Alcocer Unavailable [phone] Medications Medication SIG (Take, Route, Frequency, Duration) [...] e a day; Duration: 30 days Active Encounters Encounter Location Date Provider Diagnosis [facility] [address] [place] [address] 05/05/2025 Malena Alcocer Plan Of Treatment Next Appt Details Provider Name:Malena werner, 02/18/2026 10:30:00 AM, [address], [address], [place], [address], Progress Notes * María WILLIAM MDOB: 1990 (34 yo F)Acc No.[id number]:05/05/2025 Progress Notes Patient: María MCCANN Provider: Aleida Alcocer PA-C :1990 A ge:34 Y S ex:Female Date:05/05/2025 Address:[address] [place] [address] Subjective: * Chief Complaints: * * HPI: C onstitutional: María is a 34-year-old female with past medical history of migraines, blepharitis of bilateral eyelids, vitamin D deficiency, iron deficiency anemia, hematuria and proteinuria who presents for routine follow-up. Continues to follow with neurology every 6 months for migraines, continues on Emgality with significant relief. Continues to follow with ophthalmology every 3 months for blepharitis, has been well-controlled. Continues to follow with nephrology. Renal ultrasound was without any acute abnormalities. * Medical History: * Medications: T aking Multi Vitamin , Taking SUMAtriptan Succinate 50 MG Tablet Oral , Taking Topiramate 100 MG Tablet 1 tablet Orally twice a day , Taking Emgality 120 MG/ML Solution Auto-injector as directed Subcutaneous , Taking Triamcinolone Acetonide 0.025 % Ointment 1 application Externally Twice a day , Taking Cholecalciferol 25 MCG (1000 UT) Capsule 1 capsule Orally Once a day , Taking Iron (Ferrous Sulfate) 325 (65 Fe) MG Tablet 1 tablet Orally daily , Taking Amoxicillin 500 MG Capsule 1 capsule Orally twice a day , Taking Tretinoin 0.05 % Cream 1 application in the evening to face Externally Once a day Objective: * Vitals: Assessment: Plan: * Treatment: * Procedure Codes: 9 9199 NO SHOW OFFICE VISIT * Images: Billing Information: * Visit Code: * Procedure Codes: 64829 NO SHOW OFFICE VISIT. Care Plan Details* * Electronic signature of Arianna Alcocer PA-C on 07/08/2025 at 09:11 AM EST Sign off status: Pending * Provider: Aleida Alcocer PA-C Date: 0 05/05/2025 Generated for Karyna beckham/Tamiko/eTannasmjuan on: 1 09/07/2024 09:11 AM EST History and Physical Notes * HPI (History of Present Illness) Category Sub-Category Detail Notes Category Not es Constitutional María is a 34-year-old female with past medical history of migraines, blepharitis of bilateral eyelids, vitamin D deficiency, iron deficiency anemia, hematuria and proteinuria who presents for routine follow-up. Continues to follow with neurology every 6 months for migraines, continues on Emgality with significant relief. Continues to follow with ophthalmology every 3 months for blepharitis, has been well-controlled. Continues to follow with nephrology. Renal ultrasound was without any acute abnormalities.
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
--- OUTSIDE RECORDS SUMMARY | 2025-07-08 09:12 | XMS_ITS | Clinical Summary ---
Author Organization [facility] Address [address] [place] [phone] Phone Care Team Providers Care Audit Tech Name Role Phone Martinez Cole MD Primary Care Provider Allergies Active Allergy Reactions Criticality Noted Date Comments Latex 04/29/2018 Social History Tobacco Use Types Packs/Day Years Used Date Smoking Tobacco: Never Assessed Education Answer Date Recorded Are you interested in more education? Not on leslye e 12/29/2022 Are you concerned about learning? Not on file 12/29/2022 No 12/29/2022 No 12/29/2022 Digital Access Answer Date Recorded No 01/27/2023 No 01/27/2023 Reliable internet access at home? Not on file 01/27/2023 Device with a working camera? Not on file Comments Unknown Sex and Gender Information Value Date Recorded Sex Assigned at Not on file Legal Sex Female 2:37 PM EDT Gender Identity Not on file Sexual Orientation Not on file Last Filed Vital Signs Vital Sign Reading Time Taken Comments Blood Pressure 120/62 04/29/2018 8:05 AM EDT Pulse 68 04/29/2018 8:05 AM EDT Temperature - - Respiratory Rate - - Oxygen Saturation 99% 04/29/2018 8:05 AM EDT Inhaled Oxygen Concentration - - Weight 68 kg (150 lb) 04/29/2018 8:05 AM EDT Height 170.2 cm (5' 7 ) 04/29/2018 8:05 AM EDT Body Mass Index 23.49 04/29/2018 8:05 AM EDT Plan of Treatment Health Maintenance Due Date Last Done Comments Adult Td,Tdap Booster 1990 DEPRESSION SCREENING 2002 SMOKING Hx and SMOKELESS TOBACCO SCREENING 2003 HEPATITIS C SCREENING 2008 HIV ONE-TIME SCREENING (18-6 5 YEARS) 2008 PAP SMEAR 2011 INFLUENZA VACCINE (#1) 2025 COVID-19 VACCINE (2024-2 6 season) 2025 05/18/2021, 04/27/2021 HEPATITIS A VACCINES Aged Out No long er eligible based on patient's age to complete this topic HIB VACCINES Aged Out No longer eligi ble based on patient's age to complete this topic MENINGOCOCCAL VACCINES (ACWY) Aged Out No longer eligible based on patient's age to complete this topic MENINGOCOCCAL VACCINES (B) Aged Out N o longer eligible based on patient's age to complete this topic PNEUMOCOCCAL VACCINES (0-49 years) Aged Out No longer eligible b ased on patient's age to complete this topic Medical Devices Not on file Insurance O [facility]MO [facility] HMO [facility] Address: [address] [address] Care Teams Audit Tech Relationship Specialty Start Date End Date Martinez Cole MD [address] [place] [address] [address] [place] [address] PCP - General Internal Medicine 04/09/18 Additional Source Comments The information contained in this document represents components of the legal health record. It is not the complete legal health record.[facility]
--- OUTSIDE RECORDS SUMMARY | 2025-07-08 09:12 | XMS_ITS | Clinical Summary ---
Author Organization [facility] Address [address] [place] [address] Phone Care Team Providers Care Asic Verification Engineer Name Role Phone Malena Alcocer Primary Care Provider [phone] Social History Tobacco Use Types Packs/Day Years Used Date Smoking Tobacco: Never Assessed Comments Unknown Sex and Gender Information Value Date Recorded Sex Assigned at Female 02/23/2025 11:55 AM EDT Legal Sex Female 10:57 AM EDT Gender Identity Female 02/23/2025 11:55 AM EDT Sexual Orientation Straight 02/23/2025 11 :55 AM EDT Plan of Treatment Health Maintenance Due Date Last Done Comments Hepatitis B Vaccines (1 of 3 - 19+ 3-dose series) 2009 Cervical Cancer Screening: P ap Smear 2011 HPV Vaccines (1 - 3-dose SCD M series) 2017 Depression Screening 09/03/2024 Hepatitis C Screening 02/13/2025 Social Influencers of Health Screening 02/13/2025 COVID-19 Vaccine (3 - 2024-2 6 season) 2025 05/18/2021, 04/27/2021 Influenza Vaccine (#1) 2025 Cholesterol Screening (Lipid Panel) 05/11/2030 05/11/2025 DTaP,Tdap,and Td Vaccines (2 - Td or Tdap) 08/26/2033 08/26/2023 RSV Immunization Adult Patients (1 - 1-dose 75+ series) 2065 HIV Screening Completed 05/11/2025 HIB Vaccines Aged Out No longer eligi ble based on patient's age to complete this topic Hepatitis A Vaccines Aged Out No long er eligible based on patient's age to complete this topic IPV Vaccines Aged Out No longer eligi ble based on patient's age to complete this topic MMR Vaccines Aged Out No longer eligi ble based on patient's age to complete this topic Meningococcal ACWY Vaccine Aged Out N o longer eligible based on patient's age to complete this topic Meningococcal B Vaccine Aged Out No l onger eligible based on patient's age to complete this topic Pneumococcal Vaccine: Pediatrics (0 to 5 Years) and At-Risk Patients (6 to 49 Years) Aged Out No longer eligible b ased on patient's age to complete this topic RSV Immunization Patients Under 20 months Aged Out No longer eligible b ased on patient's age to complete this topic Varicella Vaccines Aged Out No longer eligible based on patient's age to complete this topic Procedures Procedure Name Priority Date/Time Associated Diagnosis Comments CBC WITH AUTO DIFFERENTIAL Routine 05/11/2025 1:26 PM EDT Unprotected sexual intercourse URINALYSIS WITH REFLEX MICROSCOPIC Routine 05/11/2025 1:26 PM EDT Unprotected sexual intercourse IRON AND TIBC Routine 05/11/2025 1:26 PM EDT Iron deficiency anemia, unspecified HCG, QUANTITATIVE Routine 05/11/2025 1:2 6 PM EDT Unprotected sexual intercourse HIV 1, 2 ANTIBODY, P24 ANTIGEN WITH REFLEX TO DIFFERENTIATION Routine 05/11/2025 1:26 PM EDT Unprotected sexual intercourse CBC AND DIFFERENTIAL Routine 05/11/2025 1:26 PM EDT Unprotected sexual intercourse HEMOGLOBIN A1C Routine 05/11/2025 1:26 PM EDT Unprotected sexual intercourse LIPID PANEL WITH REFLEX TO DIRECT LDL Routine 05/11/2025 1:26 PM EDT Unprotected sexual intercourse URINALYSIS WITH REFLEX MICROSCOPIC Routine 05/11/2025 1:26 PM EDT Unprotected sexual intercourse VITAMIN B12 Routine 05/11/2025 1:26 PM EDT Unprotected sexual intercourse THYROID STIMULATING HORMONE Routine 05/11/2025 1:26 PM EDT Unprotected sexual intercourse VITAMIN D 25 HYDROXY Routine 05/11/2025 1:26 PM EDT Unprotected sexual intercourse TREPONEMA PALLIDUM ANTIBODY WITH REFLEX TO RPR AND PARTICLE AGGLUTINATION Routine 05/11/2025 1:26 PM EDT Unprotected sexual intercourse COMPREHENSIVE METABOLIC PANEL Routine 05/11/2025 1:26 PM EDT Unprotected sexual intercourse from Last 3 Months Results * HIV 1,2 antibody, p24 antigen with reflex to differentiation (05/11/2025 1:26 PM EDT) Pathologist [facility] HIV Combo AB/AG Negative Negative LAB CHEMISTRY METHOD 05/11/2025 7:23 PM EDT [facility] Blood Venous blood specimen / Unknown Venipuncture / Unknown 05/11/2025 1:26 PM EDT 05/11/2025 4:04 PM EDT Narrative [facility] - 05/11/2025 7:23 PM EDT This assay is a 4th generation assay allowing for earlier detection of HIV infection by detecting the presence of the HIV-1 p24 antigen as well as the traditional antibodies to HIV type 1 (including group O) and type 2. Use of a 4th generation assay is the current CDC recommendation for HIV screening. us Malena ABARCA LAB BLOOD ORDERABLES Final R esult [facility] [address] [place] [address], [place] [phone] * (ABNORMAL) Urinalysis with reflex microscopic (05/11/2025 1:26 PM EDT) [facility] Specific [place] Urine 1.024 1.003 - 1.030 LAB URINALYSIS - AUTOMATED METHOD 05/11/2025 4:48 PM [facility] pH, Urine 5.0 5.0 - 8.0 pH LAB URINALYSIS - AUTOMATED METHOD 05/11/2025 4:48 PM [facility] Leukocytes, Urine Small(A) Negative LAB URINALYSIS - AUTOMATED METHOD 05/11/2025 4:48 PM [facility] Nitrite, Urine Negative Negative LAB URINALYSIS - AUTOMATED METHOD 05/11/2025 4:48 PM [facility] Protein, Urine 30(A) <=Trace mg/dL LAB URINALYSIS - AUTOMATED METHOD 05/11/2025 4:48 PM [facility] Glucose, Urine Negative Negative mg/dL LAB URINALYSIS - AUTOMATED METHOD 05/11/2025 4:48 PM [facility] Ketones, Urine Trace(A) Negative mg/dL LAB URINALYSIS - AUTOMATED METHOD 05/11/2025 4:48 PM [facility] Urobilinogen , Urine 1.0 0.2 - 1.0 mg/dL LAB URINALYSIS - AUTOMATED METHOD 05/11/2025 4:48 PM [facility] Bilirubin, Urine Negative Negative LAB URINALYSIS - AUTOMATED METHOD 05/11/2025 4:48 PM [facility] Blood, Urine Large(A) Negative LAB URINALYSIS - AUTOMATED METHOD 05/11/2025 4:48 PM [facility] RBC, Urine 4.4(H) 0 - 4 /HPF LAB URINALYSIS - AUTOMATED METHOD 05/11/2025 4:48 PM [facility] WBC, Urine 5.0(H) 0 - 4 /HPF LAB URINALYSIS - AUTOMATED METHOD 05/11/2025 4:48 PM [facility] Squamous Epithelial, Urine >100(H) 0 - 60 /LPF LAB URINALYSIS - AUTOMATED METHOD 05/11/2025 4:48 PM EDT [facility] Bacteria, Urine Moderate(A) Negative /HPF LAB URINALYSIS - AUTOMATED METHOD 05/11/2025 4:48 PM EDT [facility] Hyaline Casts, Urine 8.4(H) 0 - 3 /LPF LAB URINALYSIS - AUTOMATED METHOD 05/11/2025 4:48 PM EDT [facility] Urine Urine specimen obtained by clean catch procedure / Unknown Non-blood Collection / Unknown 05/11/2025 1:26 PM EDT 05/11/2025 4:18 PM EDT Malena ABARCA LAB URINE ORDERABLES Final R esult Performing Organization Address [facility]/ZIP Co de Phone Number [facility] [address] [place] [address], [place] [phone] * Treponema pallidum antibody with reflex to RPR and particle agglutination (05/11/2025 1:26 PM EDT) T. Pallidum Antibodies Negative Negative LAB CHEMISTRY METHOD 05/11/2025 8:57 PM EDT [facility] Blood Venous blood specimen / Unknown Venipuncture / Unknown 05/11/2025 1:26 PM EDT 05/11/2025 4:04 PM EDT Malena ABARCA LAB BLOOD ORDERABLES Final R esult Performing Organization Address [facility]/ZIP Co de Phone Number [facility] [address] [place] [address], [place] [phone] * (ABNORMAL) Lipid panel with reflex to direct LDL (05/11/2025 1:26 PM EDT) Cholesterol 180 0 - 200 mg/dL LAB CHEMISTRY METHOD 05/11/2025 6:12 PM EDT [facility] Triglycerides 68 0 - 150 mg/dL LAB CHEMISTRY METHOD 05/11/2025 6:12 PM EDT [facility] HDL 47 >=40 mg/dL LAB CHEMISTRY METHOD 05/11/2025 6:12 PM EDT [facility] LDL Calculated 119(H) 0 - 100 mg/dL LAB CHEMISTRY METHOD 05/11/2025 6:12 PM EDT [facility] Comment:Estimated LDL Calcul ated using equation: Total cholesterol - HDL cholesterol - (Triglycerides/5) VLDL Cholesterol [place] 13.6 mg/dL LAB CHEMISTRY METHOD 05/11/2025 6:12 PM EDT [facility] Non HDL Chol. (LDL+VLDL) 133 <145 mg/dL LAB CHEMISTRY METHOD 05/11/2025 6:12 PM EDT [facility] Chol/HDL Ratio 3.8 0.0 - 4.4 LAB CHEMISTRY METHOD 05/11/2025 6:12 PM EDT [facility] Blood Venous blood specimen / Unknown Venipuncture / Unknown 05/11/2025 1:26 PM EDT 05/11/2025 4:04 PM EDT us Malena ABARCA LAB BLOOD ORDERABLES Final R esult [facility] [address] [place] [address], * (ABNORMAL) CBC auto differential (05/11/2025 1:26 PM EDT) WBC 6.9 4.8 - 10.8 K/mcL LAB HEMETOLOGY METHOD 05/11/2025 4:41 PM EDT [facility] RBC 4.40 3.80 - 4.80 M/mcL LAB HEMETOLOGY METHOD 05/11/2025 4:41 PM EDT [facility] Hemoglobin 12.7 11.5 - 16.0 g/dL LAB HEMETOLOGY METHOD 05/11[facility]2025 [facility] Hematocrit 39.3 35.0 - 47.0 % LAB HEMETOLOGY METHOD 05/11/2025 4:[facility] MCV 89.7 79.0 - 98.0 FL LAB HEMETOLOGY METHOD 05/11/2025 4:41 PM [facility] MCH 29.0 27.0 - 32.0 pcg LAB HEMETOLOGY METHOD 05/11/2025 [facility] MCHC 32.3 32.0 - 37.0 g/dL LAB HEMETOLOGY METHOD 05/11/2025 4:41 PM [facility] RDW 14.1 11.0 - 15.0 % LAB HEMETOLOGY METHOD 05/11/2025 4:41 PM [facility] Platelets 277 130 - 400 K/mcL LAB HEMETOLOGY METHOD 05/11/2025 4:41 PM [facility] MPV 11.5(H) 7.0 - 11.0 FL LAB HEMETOLOGY METHOD 05/11/2025 4:41 PM [facility] NRBC 0.0 <1.0 % LAB HEMETOLOGY METHOD 05/11/2025 4:41 PM [facility] NRBC Absolute 0.00 <0.10 K/mcL LAB HEMETOLOGY METHOD 05/11/2025 4:41 PM [facility] Neutrophils Relative 67.0 % LAB HEMETOLOGY METHOD 05/11/2025 4:41 PM [facility] Lymphocytes Relative 24.1 % LAB HEMETOLOGY METHOD 05/11/2025 4:41 PM [facility] Monocytes Relative 7.5 % LAB HEMETOLOGY METHOD 05/11/2025 4:41 PM [facility] Eosinophils Relative 0.7 % LAB HEMETOLOGY METHOD 05/11/2025 4:41 PM EDT [facility] Basophils Relative 0.4 % LAB HEMETOLOGY METHOD 05/11/2025 4:41 PM EDT [facility] Immature Granulocytes Relative 0.3 % LAB HEMETOLOGY METHOD 05/11/2025 4:41 PM EDT [facility] Neutrophils Absolute 4.64 1.50 - 7.00 K/mcL LAB HEMETOLOGY METHOD 05/11/2025 4:41 PM EDT [facility] Lymphocytes Absolute 1.67 1.00 - 5.00 K/mcL LAB HEMETOLOGY METHOD 05/11/2025 4:41 PM EDT [facility] Monocytes Absolute 0.52 0.20 - 1.00 K/mcL LAB HEMETOLOGY METHOD 05/11/2025 4:41 PM EDT [facility] Eosinophils Absolute 0.05 0.00 - 0.50 K/mcL LAB HEMETOLOGY METHOD 05/11/2025 4:41 PM EDT [facility] Basophils Absolute 0.03 0.00 - 0.20 K/mcL LAB HEMETOLOGY METHOD 05/11/2025 4:41 PM EDT [facility] Immature Granulocytes Absolute 0.02 0.00 - 0.03 K/mcL LAB HEMETOLOGY METHOD 05/11/2025 4:41 PM EDT [facility] Blood Venous blood specimen / Unknown Venipuncture / Unknown 05/11/2025 1:26 PM EDT 05/11/2025 4:19 PM EDT us Malena ABARCA LAB BLOOD ORDERABLES Final R esult [facility] [address] [place] [address], * Iron and TIBC (05/11/2025 1:26 PM EDT) Iron 98 40 - 150 mcg/dL LAB CHEMISTRY METHOD 05/11/2025 6:01 PM EDT [facility] TIBC 330 250 - 450 mcg/dL LAB CHEMISTRY METHOD 05/11/2025 6:01 PM EDT [facility] Iron Saturation 30 15 - 50 % LAB CHEMISTRY METHOD 05/11/2025 6:01 PM EDT [facility] Blood Venous blood specimen / Unknown Venipuncture / Unknown 05/11/2025 1:26 PM EDT 05/11/2025 4:04 PM EDT Malena ABARCA LAB BLOOD ORDERABLES Final R esult Performing Organization Address [facility]/ZIP Co de Phone Number [facility] [address] [place] [address], [place] [phone] * Vitamin D 25 hydroxy (05/11/2025 1:26 PM EDT) Vit D, 25-Hydroxy 37.7 30.0 - 80.0 ng/mL LAB CHEMISTRY METHOD 05/11/2025 6:43 PM EDT [facility] Blood Venous blood specimen / Unknown Venipuncture / Unknown 05/11/2025 1:26 PM EDT 05/11/2025 4:04 PM EDT Malena ABARCA LAB BLOOD ORDERABLES Final R esult [facility] [address] [place] [address], [place] [phone] * HCG, quantitative (05/11/2025 1:26 PM EDT) Pathologist [facility] hCG Quant <1 mIU/mL LAB CHEMISTRY METHOD 05/11/2025 6:12 PM EDT [facility] Blood Venous blood specimen / Unknown Venipuncture / Unknown 05/11/2025 1:26 PM EDT 05/11/2025 4:04 PM EDT Narrative [facility] - 05/11/2025 6:12 PM EDT Quantitative HCG Reference Ranges Time after Conception MIU/ML 0.2-1 Week 5-50 1-2 Weeks 50-500 2-3 Weeks 100-5,000 3-4 Weeks 500-10,000 4-5 Weeks 1,000-50,000 5-6 Weeks 10,000-100,000 6-8 Weeks 15,000-200,000 2-3 Months 10,000-100,000 2nd Trimester 1,000-94,000 3rd Trimester 2,500-90,000 Non- Females 1-3 Malena Alcocer PA LAB BLOOD ORDERABLES Final R esult Performing Organization Address City/[facility]/ZIP Co de Phone Number [facility] [address] [place] [address], [place] [phone] * Thyroid stimulating hormone (05/11/2025 1:26 PM EDT) [facility] TSH 3.66 0.40 - 4.00 mcIU/mL LAB CHEMISTRY METHOD 05/11/2025 8:46 PM EDT [facility] Blood Venous blood specimen / Unknown Venipuncture / Unknown 05/11/2025 1:26 PM EDT 05/11/2025 4:04 PM EDT Malena Normoyle PA LAB BLOOD ORDERABLES Final R esult [facility] [address] [place] [address], [place] [phone] * Hemoglobin A1c (05/11/2025 1:26 PM EDT) [facility] Hemoglobin A1C 5.3 <6.5 % LAB CHEMISTRY METHOD 05/11/2025 11:06 PM EDT [facility] Mean Bld Glu Estim. 105 mg/dL LAB CHEMISTRY METHOD 05/11/2025 11:06 PM EDT [facility] Blood Venous blood specimen / Unknown Venipuncture / Unknown 05/11/2025 1:26 PM EDT 05/11/2025 4:19 PM EDT Malena ABARCA LAB BLOOD ORDERABLES Final R esult [facility] [address] [place] [address], [place] [phone] * Vitamin B12 (05/11/2025 1:26 PM EDT) [facility] Vitamin B-12 420 250 - 900 pcg/mL LAB CHEMISTRY METHOD 05/11/2025 10:12 PM EDT [facility] Blood Venous blood specimen / Unknown Venipuncture / Unknown 05/11/2025 1:26 PM EDT 05/11/2025 4:04 PM EDT us Malena ABARCA LAB BLOOD ORDERABLES Final R esult [facility] [address] [place] [address], [place] [phone] * Comprehensive metabolic panel (05/11/2025 1:26 PM EDT) [facility] Sodium 138 133 - 145 mmol/L LAB CHEMISTRY METHOD 05/11/2025 6:12 PM EDT [facility] Potassium 4.0 3.5 - 5.5 mmol/L LAB CHEMISTRY METHOD 05/11/2025 6:12 PM EDT [facility] Chloride 108 96 - 110 mmol/L LAB CHEMISTRY METHOD 05/11/2025 6:12 PM [facility] CO2 22 21 - 32 mmol/L LAB CHEMISTRY METHOD 05/11/2025 6:12 PM [facility] Anion Gap 8 3 - 11 LAB CHEMISTRY METHOD 05/11/2025 6:12 PM [facility] Glucose 74 70 - 100 mg/dL LAB CHEMISTRY METHOD 05/11/2025 6:12 PM [facility] BUN 11 5 - 25 mg/dL LAB CHEMISTRY METHOD 05/11/2025 6:12 PM [facility] Creatinine 0.82 0.50 - 1.10 mg/dL LAB CHEMISTRY METHOD 05/11/2025 6:12 PM [facility] eGFR 96 >=60 mL/min/1. 73m2 LAB CHEMISTRY METHOD 05/11/2025 6:12 PM [facility] Comment:Calculation based on the Chronic Kidney Disease Epidemiology Collaboration (CKD-EPI) equation refit without adjustment for race. BUN/Creatinine Ratio 13.4 LAB CHEMISTRY METHOD 05/11/2025 6:12 PM [facility] Calcium 9.0 8.5 - 10.5 mg/dL LAB CHEMISTRY METHOD 05/11/2025 6:12 PM [facility] AST (SGOT) 17 10 - 42 unit/L LAB CHEMISTRY METHOD 05/11/2025 6:12 PM [facility] ALT (SGPT) 26 10 - 60 unit/L LAB CHEMISTRY METHOD 05/11/2025 6:12 PM [facility] Alkaline Phosphatase 115 42 - 121 unit/L LAB CHEMISTRY METHOD 05/11/2025 6:12 PM [facility] Total Protein 7.0 6.0 - 8.0 g/dL LAB CHEMISTRY METHOD 05/11/2025 6:12 PM [facility] Albumin 3.9 3.2 - 5.0 g/dL LAB CHEMISTRY METHOD 05/11/2025 6:12 PM EDT [facility] Total Bilirubin 0.5 0.0 - 1.4 mg/dL LAB CHEMISTRY METHOD 05/11/2025 6:12 PM EDT [facility] Blood Venous blood specimen / Unknown Venipuncture / Unknown 05/11/2025 1:26 PM EDT 05/11/2025 4:04 PM EDT Malena ABARCA LAB BLOOD ORDERABLES Final R esult [facility] [address] [place] [address], from Last 3 Months Insurance [facility] Care Teams Asic Verification Engineer Relationship Specialty Start Date End Date Malena Alcocer PA [address] [address] PCP - General Internal Medicine 03/03/25
--- OUTSIDE RECORDS SUMMARY | 2025-07-08 09:12 | XMS_ITS | Patient Health Record ---
Author Organization [facility] [address] Address [address] [place] [address] Care Team Providers Care Gold And Silver Assayer Name Role Phone Malena Alcocer Unavailable [phone] YUNI OSWALDO Unavailable [phone] Allergies Allergen (clinical drug ingredient) Drug/Non Drug Allergy documented on EMR Reaction Allergy Type Onset Date Status Latex Latex hives Allergy Active Results Component Value Reference Range Notes HCG, QUANTITATIVE Reviewed date:05/12/2025 01:01:48 PM Interpretation: Performing Lab: Notes/Report: Non- Females 1-3 3rd Trimester 2,500-90,000 2nd Trimester 1,000-94,000 2-3 Months 10,000-100,000 6-8 Weeks 15,000-200,000 5-6 Weeks 10,000-100,000 4-5 Weeks 1,000-50,000 3-4 Weeks 500-10,000 2-3 Weeks 100-5,000 1-2 Weeks 50-500 0.2-1 Week 5-50 Time after Conception MIU/ML Quantitative HCG Reference Ranges hCG Quant <1 HIV 1, 2 ANTIBODY, P24 ANTIG EN WITH REFLEX TO DIFFERENTIATION Reviewed date:05/12/2025 01:01:48 PM Interpretation: Performing Lab: Notes/Report: This assay is a 4th generation assay allowing for earlier detection of HIV infection by detecting the presence of the HIV-1 p24 antigen as well as the traditional antibodies to HIV type 1 (including group O) and type 2. Use of a 4th generation assay is the current CDC recommendation for HIV screening. HIV Combo AB/AG Negative Negative URINALYSIS WITH REFLEX MICRO SCOPIC Reviewed date:05/12/2025 01:01:48 PM Interpretation: Performing Lab: Notes/Report: Specific [place] Urine 1.024 1.003-1.030 pH, Urine 5.0 5.0-8.0 pH Leukocytes, Urine Small Negative Nitrite, Urine Negative Negative Protein, Urine 30 <=Trace mg/dL Glucose, Urine Negative Negative mg/dL Ketones, Urine Trace Negative mg/dL Urobilinogen, Urine 1.0 0.2-1.0 mg/dL Bilirubin, Urine Negative Negative Blood, Urine Large Negative RBC, Urine 4.4 0-4 /HPF WBC, Urine 5.0 0-4 /HPF Squamous Epithelial, Urine >100 0-60 /LPF Bacteria, Urine Moderate Negative /HPF Hyaline Casts, Urine 8.4 0-3 /LPF IRON AND TIBC Reviewed date:05/12/2025 01:01:48 PM Interpretation: Performing Lab: Notes/Report: Iron 98 40-150 mcg/dL TIBC 330 250-450 mcg/dL Iron Saturation 30 15-50 % TREPONEMA PALLIDUM ANTIBODY WITH REFLEX TO RPR AND PARTICLE AGGLUTINATION Reviewed date:05/12/2025 01:01:48 PM Interpretation: Performing Lab: Notes/Report: T. Pallidum Antibodies Negative Negative VITAMIN B12 Reviewed date:05/12/2025 01:01:48 PM Interpretation: Performing Lab: Notes/Report: Vitamin B-12 420 250-900 pcg/mL HEMOGLOBIN A1C Reviewed date:05/12/2025 01:01:35 PM Interpretation: Performing Lab: Notes/Report: Hemoglobin A1C 5.3 <6.5 % Mean Bld Glu Estim. 105 COMPREHENSIVE METABOLIC PANE L Reviewed date:05/12/2025 01:01:48 PM Interpretation: Performing Lab: Notes/Report: Sodium 138 133-145 mmol/L Potassium 4.0 3.5-5.5 mmol/L Chloride 108 96-110 mmol/L CO2 22 21-32 mmol/L Anion Gap 8 3-11 Glucose 74 70-100 mg/dL BUN 11 5-25 mg/dL Creatinine 0.82 0.50-1.10 mg/dL eGFR 96 >=60 mL/min/1.73m2 Calculati on based on the Chronic Kidney Disease Epidemiology Collaboration (CKD-EPI) equation refit without adjustment for race. BUN/Creatinine Ratio 13.4 Calcium 9.0 8.5-10.5 mg/dL AST (SGOT) 17 10-42 unit/L ALT (SGPT) 26 10-60 unit/L Alkaline Phosphatase 115 42-121 unit/L Total Protein 7.0 6.0-8.0 g/dL Albumin 3.9 3.2-5.0 g/dL Total Bilirubin 0.5 0.0-1.4 mg/dL THYROID STIMULATING HORMONE Reviewed date:05/12/2025 01:01:48 PM Interpretation: Performing Lab: Notes/Report: TSH 3.66 0.40-4.00 mcIU/mL VITAMIN D 25 HYDROXY Reviewed date:05/12/2025 01:01:48 PM Interpretation: Performing Lab: Notes/Report: Vit D, 25-Hydroxy 37.7 30.0-80.0 ng/mL LIPID PANEL WITH REFLEX TO D IRECT LDL Reviewed date:05/12/2025 01:01:48 PM Interpretation: Performing Lab: Notes/Report: Cholesterol 180 0-200 mg/dL Triglycerides 68 0-150 mg/dL HDL 47 >=40 mg/dL LDL Calculated 119 0-100 mg/dL Estimated LDL Calculated using equation: Total cholesterol - HDL cholesterol - (Triglycerides/5) VLDL Cholesterol Diallo 13.6 Non HDL Chol. (LDL+VLDL) 133 <145 mg/dL Chol/HDL Ratio 3.8 0.0-4.4 CBC WITH AUTO DIFFERENTIAL Reviewed date:05/12/2025 01:01:48 PM Interpretation: Performing Lab: Notes/Report: WBC 6.9 4.8-10.8 K/mcL RBC 4.40 3.80-4.80 M/mcL Hemoglobin 12.7 11.5-16.0 g/dL Hematocrit 39.3 35.0-47.0 % MCV 89.7 79.0-98.0 FL MCH 29.0 27.0-32.0 pcg MCHC 32.3 32.0-37.0 g/dL RDW 14.1 11.0-15.0 % Platelets 277 130-400 K/mcL MPV 11.5 7.0-11.0 FL NRBC 0.0 <1.0 % NRBC Absolute 0.00 <0.10 K/mcL Neutrophils Relative 67.0 Lymphocytes Relative 24.1 Monocytes Relative 7.5 Eosinophils Relative 0.7 Basophils Relative 0.4 Immature Granulocytes Relative 0.3 Neutrophils Absolute 4.64 1.50-7.00 K/mcL Lymphocytes Absolute 1.67 1.00-5.00 K/mcL Monocytes Absolute 0.52 0.20-1.00 K/mcL Eosinophils Absolute 0.05 0.00-0.50 K/mcL Basophils Absolute 0.03 0.00-0.20 K/mcL Immature Granulocytes Absolute 0.02 0.00-0.03 K/mcL NOTE Reviewed date:02/05/2025 04:46:47 PM Interpretation: Performing Lab:[facility], [facility] [id number] [place] [address] [facility] Notes/Report: NOTE This urine was analyzed for the presence of WBC, RBC, bacteria, casts, and other formed elements. Only those elements seen were reported. FERRITIN Reviewed date:02/05/2025 04:46:47 PM Interpretation: Performing Lab:[facility], [facility] [place] [id number] [facility] Notes/Report: FERRITIN 5 16-154 ng/mL FOLATE, SERUM Reviewed date:02/05/2025 04:46:47 PM Interpretation: Performing Lab:[facility], [facility] [address] [id number] [facility] Notes/Report: FOLATE, SERUM 11.0 Reference Range Low: <3.4 Borderline: 3.4-5.4 Normal: >5.4 URINALYSIS REFLEX Reviewed date:02/05/2025 04:46:47 PM Interpretation: Performing Lab:[employer], [facility] [address] [phone] [place] [address] [facility] Notes/Report: COLOR YELLOW YELLOW APPEARANCE CLEAR CLEAR [...] URINE Reviewed date:02/06/2025 12:52:54 PM Interpretation: Performing Lab:[facility], [facility] Deisy Obrien Notes/Report: CREATININE, RANDOM URINE 136 20-275 mg/dL PROTEIN/CREATININE RATIO 390 24-184 mg/g crea t PROTEIN/CREATININE RATIO 0.390 0.024-0 .184 mg/mg creat PROTEIN, TOTAL, RANDOM UR 53 5-24 mg/dL IRON AND TOTAL IRON BINDING CAPACITY Reviewed date:02/05/2025 04:46:47 PM Interpretation: Performing Lab:[facility] [employer] Joel Obrien Notes/Report: IRON, TOTAL 24 40-190 mcg/dL IRON BINDING CAPACITY 397 250-450 mc g/dL (calc) % SATURATION 6 16-45 % (calc) VITAMIN D,25-OH,TOTAL,IA Reviewed date:02/02/2025 04:52:38 PM Interpretation: Performing Lab:[facility] Ena Joel Obrien Notes/Report: FASTING: YES FASTING:YES VITAMIN D,25-OH,TOTAL,IA 13 30-100 ng/mL Vitamin D Status 25-OH Vitamin D: Deficiency: <20 ng/mL Insufficiency: 20 - 29 ng/mL Optimal: > or = 30 ng/mL For 25-OH Vitamin D testing on patients on D2-supplementation and patients for whom quantitation of D2 and D3 fractions is required, the QuestAssureD(TM) 25-OH VIT D, (D2,D3), LC/MS/MS is recommended: order code 07264 (patients >2yrs). See Note 1 Note 1 For additional information, please refer to http://education.[employer]/faq/FZL879 (This link is being provided for informational/ educational purposes only.) TSH Reviewed date:02/02/2025 04:48:26 PM Interpretation: Performing Lab:[facility] [facility] Notes/Report: FASTING:YES FASTING: YES TSH 2.23 Reference Range > or = 20 Years 0.40-4.50 Ranges First trimester 0.26-2.66 Second trimester 0.55-2.73 Third trimester 0.43-2.91 VITAMIN B12 Reviewed date:02/02/2025 04:48:26 PM Interpretation: Performing Lab:[facility] [facility] Notes/Report: FASTING:YES FASTING: YES VITAMIN B12 792 300-2728 pg/mL Please Note: Although the reference range for vitamin B12 is 200-1100 pg/mL, it has been reported that between 5 and 10% of patients with values between 200 and 400 pg/mL may experience neuropsychiatric and hematologic abnormalities due to occult B12 deficiency; less than 1% of patients with values above 400 pg/mL will have symptoms. HEMOGLOBIN A1c Reviewed date:02/02/2025 04:48:26 PM Interpretation: Performing Lab:[facility] [facility] Notes/Report: FASTING:YES FASTING: YES HEMOGLOBIN A1c 5.5 [...] diagnosis of diabetes in children. According to [place] Diabetes Association (ADA) guidelines, hemoglobin A1c <7.0% represents optimal control in non- diabetic patients. Different metrics may apply to specific patient populations. Standards of Medical Care in Diabetes(ADA). RPR (MONITOR) W/REFL TITER Reviewed date:02/02/2025 04:48:26 PM Interpretation: Performing Lab:[facility] [facility] Notes/Report: FASTING:YES FASTING: YES RPR (MONITOR) W/REFL TITER NON-REACTIVE NON-REACTIVE URINALYSIS, COMPLETE Reviewed date:02/02/2025 04:52:38 PM Interpretation: Performing Lab:[facility], [facility] Deisy Obrein Notes/Report: FASTING:YES FASTING: YES COLOR YELLOW YELLOW [...] Reviewed date:02/02/2025 04:52:38 PM Interpretation: Performing Lab:[facility], [facility] Deisy Obrien Notes/Report: FASTING:YES FASTING: YES [...] MPV 11.2 7.5-12.5 fL ABSOLUTE NEUTROPHILS 4173 [phone] cells/uL ABSOLUTE LYMPHOCYTES 9152 452-2103 cells/uL ABSOLUTE MONOCYTES 435 200-950 cells/uL ABSOLUTE EOSINOPHILS 38 15-500 cells/uL ABSOLUTE BASOPHILS 32 0-200 cells/uL NEUTROPHILS 65.2 LYMPHOCYTES 26.9 MONOCYTES 6.8 EOSINOPHILS 0.6 BASOPHILS 0.5 COMPREHENSIVE METABOLIC PANE L Reviewed date:02/02/2025 04:48:26 PM Interpretation: Performing Lab:[facility], [facility] Deisy Obrien Notes/Report: FASTING:YES FASTING: YES [...] STANDARD Reviewed date:02/02/2025 04:52:38 PM Interpretation: Performing Lab:[facility], [facility] Deisy Obrien Notes/Report: FASTING:YES FASTING: YES [...] of LDL-C. Galileo SS et al. KENNETH. 2013;310(88): 1209-3508 (http://[employer]/faq/GOU329) CHOL/HDLC RATIO 3.4 <5.0 (calc) NON HDL CHOLESTEROL 135 <130 mg/dL (calc) For patients with diabetes plus 1 major ASCVD risk factor, treating to a non-HDL-C goal of <100 mg/dL (LDL-C of <70 mg/dL) is considered a therapeutic option. CHLAMYDIA/N. GONORRHOEAE RNA , TMA, UROGENITAL Reviewed date:02/02/2025 04:48:26 PM Interpretation: Performing Lab:[facility], [facility] [place] [phone] Deisy Obrien Notes/Report: FASTING:YES FASTING: YES CHLAMYDIA TRACHOMATIS RNA, TMA, UROGENITAL NOT DETECTED NOT DETECTED NEISSERIA GONORRHOEAE RNA, TMA, UROGENITAL NOT DETECTED NOT DETECTED COMMENT The analytical performance characteristics of this assay, when used to test SurePath(TM) specimens have been determined by [facility]. The modifications have not been cleared or approved by the FDA. This assay has been validated pursuant to the CLIA regulations and is used for clinical purposes. For additional information, please refer to https://[employer]/faq/JZN979 (This link is being provided for information/ educational purposes only.) DNA (DS) ANTIBODY Reviewed date:02/20/2025 12:08:57 PM Interpretation: Performing Lab:[facility], [facility] Deisy Obrien Notes/Report: FASTING:YES FASTING: YES DNA (DS) ANTIBODY <1 IU/mL Interpretation < or = 4 Negative 5-9 Indeterminate > or = 10 Positive NIALL SCREEN, IFA, W/REFL TITE R AND PATTERN Reviewed date:02/10/2025 11:42:12 AM Interpretation: Performing Lab:[facility], [facility] Deisy Obrien Notes/Report: FASTING:NO FASTING: NO [...] AC-0: Negative International Consensus on NIALL Patterns (https://doi.org/10.1515/c tsa-1360-7888) For additional information, please refer to http://education.S[employer]/faq/XJX215 (This link is being provided for informational/ educational purposes only.) COMPLEMENT COMPONENT C3C Reviewed date:02/20/2025 12:08:57 PM Interpretation: Performing Lab:[facility] [place] [phone] Deisy Obrien Notes/Report: FASTING:YES FASTING: YES COMPLEMENT COMPONENT C3C 134 83-193 mg/dL GLOMERULAR BASEMENT MEMBRANE ANTIBODY (IGG) Reviewed date:02/20/2025 12:08:57 PM Interpretation: Performing Lab:[facility] [id number] Deisy Obrien Notes/Report: FASTING:YES FASTING: YES GLOMERULAR BASEMENT MEMBRANE ANTIBODY (IGG) <1.0 Value Interpretation ----- <1.0 No Antibody Detected > or = 1.0 Antibody Detected ANTI-STREPTOLYSIN O Reviewed date:02/20/2025 12:08:57 PM Interpretation: Performing Lab:[facility] [place] [id number] Deisy Obrien Notes/Report: FASTING:YES FASTING: YES ANTI-STREPTOLYSIN O 196 <200 IU/mL HCG, QL, URINE Reviewed date:02/10/2025 11:42:12 AM Interpretation: Performing Lab:[facility] [place] [phone] Deisy Mccallesteban Notes/Report: FASTING:NO FASTING: NO HCG, QL, URINE NEGATIVE NEGATIVE HIV 1/2 ANTIGEN/ANTIBODY,FOU RTH GENERATION W/RFL Reviewed date:02/02/2025 04:48:26 PM Interpretation: Performing Lab:[facility], [facility] [place] Deisy Mccallesteban Notes/Report: FASTING:YES FASTING: YES HIV AG/AB, 4TH [...] purpose. For additional information please refer to http://education.[employer]/faq/FWR389 (This link is being provided for informational/ educational purposes only.) The performance of this assay has not been clinically validated in patients less than 2 years old. COMPLEMENT COMPONENT C4C Reviewed date:02/20/2025 12:08:57 PM Interpretation: Performing Lab:[facility], [facility] [place] Enarobby Mccallesteban Notes/Report: FASTING:YES FASTING: YES COMPLEMENT COMPONENT C4C 22 15-57 mg/dL Reason For Referral No Information Medications Medication SIG (Take, Route, Frequency, Duration) Notes Start Date End Date Status Triamcinolone Acetonide 0.025 % 1 application Externally Twice a day; Duration: 14 days 01/30/2025 Active Topiramate 100 MG 1 tablet Orally twic e a day; Duration: 30 days Active Polymyxin B-Trimethoprim 12802-8.1 UNIT/ML 1 drop into affected eye Ophthalmic Four times a day; Duration: 7 days 06/23/2025 Active Emgality 120 MG/ML as directed Subcutaneous 2024 Active Multi Vitamin Active SUMAtriptan Succinate 50 MG Oral; Duration: 30 Days Active Fish Oil Active Vitamin B-12 Active Magnesium Active Cholecalciferol 25 MCG (1000 UT) 1 capsule Orally Once a day; Duration: 30 days 02/02/2025 Active Iron (Ferrous Sulfate) 325 (65 Fe) MG 1 tablet Orally daily; Duration: 90 days 02/05/2025 Active Problems Problem Type SNOMED Code ICD Code Onset Dates Problem Status W/U Status Risk Notes Problem Migraine (50057512) Migraine syndrome (G43.909) Active confirmed Problem Atopic dermatitis (27240255) Atopic dermatitis, mild (L20.9) Active confirmed Problem Anemia (204157625) Anemia (D64.9) Active confirmed Problem Autoimmune disease (89770314) Autoimmune disease (M35.9) Active confirmed Problem Iron deficiency anemia secondary to inadequate dietary iron intake (496990630) 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) Active confirmed Problem Avitaminosis D (41307215) Avitaminosis D (E55.9) Active confirmed Problem Vitamin B>12< deficiency anaemia (12085978) Anemia due to vitamin B12 deficiency, unspecified B12 deficiency type (D51.9) Active confirmed Problem Iron deficiency anemia (82230398) Iron deficiency anemia, unspecified (D50.9) Active confirmed Vital Signs Heart Rate 72 /min 06/23/2025 Blood pressure diastolic 80 mm Hg 06/23/2025 Oximetry 98 % 06/23/2025 Height 67 in 06/23/2025 Blood pressure systolic 118 mm Hg 06/23/2025 Weight 166.7 lbs 06/23/2025 BMI 26.11 kg/m2 06/23/2025 Encounters Encounter Location Date Provider Diagnosis [facility] [address] [address] 05/05/2025 Malena Normoyle [facility] [address] [address] 01/30/2025 Malena Normoyle Sore throat J02.9 ; Migraine syndrome G43.909 ; Atopic dermatitis, mild L20.9 ; Hyperpigmentation L81.9 ; Unprotected sex Z72.51 ; Abnormal vaginal Pap smear R87.629 ; Encounter for examination of blood pressure without abnormal findings Z01.30 and Unprotected sexual intercourse Z72.51 [facility] [address] [address] 02/13/2025 Malena Normoyle Annual physical exam Z00.00 ; Migraine syndrome [...] findings Z01.30 and Hyperpigmentation of skin L81.9 [facility] [address] 05/14/2025 Malena Normoyle Migraine syndrome G4 3.909 ; Proteinuria, unspecified type R80.9 ; Iron deficiency anemia secondary to inadequate dietary iron intake D50.8 ; Unspecified blepharitis right eye, upper and lower eyelids H01.00A ; Unspecified blepharitis left eye, upper and lower eyelids H01.00B ; Avitaminosis D E55.9 and Encounter for examination of blood pressure without abnormal findings Z01.30 [facility] [address] [address] 06/23/2025 OSWALDO MORRISSEY Hordeolum internum o f right lower eyelid H00.022 [facility] [address] 01/30/2025 Malena Normoyle [facility] [address] 02/02/2025 Malena Normoyle [facility] [address] 02/02/2025 Malena Normoyle Abnormal urine R82.9 0 ; Generalized rash R21 and Anemia D64.9 [facility] [address] 02/05/2025 Malena Normoyle [facility] [address] 02/05/2025 Malena Normoyle Unprotected sex Z72. 51 and Autoimmune disease M35.9 [facility] [address] [address] [place] [address] 02/05/2025 Malena Normoyle [facility] [address] [address] [place] [address] 02/10/2025 Malena Normoyle [facility] [address] [facility] [address] [place] [address] 02/16/2025 Malena Normoyle [facility] [address] [facility] [address] [place] [address] 03/05/2025 Malena Normoyle [facility] [address] [place] [address] 03/10/2025 Malena Normoyle [facility] [address] [facility] [address] [place] [address] 03/13/2025 Malena Normoyle [facility] [address] [facility] [address] [place], [place] 03/25/2025 Malena Normoyle [facility] [address] 05/05/2025 Malena Normoyle Annual physical exam Z00.00 and Iron deficiency anemia, unspecified D50.9 [facility] [address] 06/23/2025 Malena Normoyle [facility] [address] [facility] [address] [place] [address] 06/23/2025 Malena Normoyle [facility] [address] [address] 07/06/2025 Malena Normoyle [facility] [address] [facility] [address] [place] [address] 02/23/2025 Malena Normoyle [facility] [address] [facility] [address] [place], [place] 06/01/2025 Malena Normoyle [facility] [address] [address] 06/02/2025 Malena Normoyle Assessments Encounter Date Diagnosis (ICD Code) Assessment Notes Treatment Notes Treatment Clinical Notes Section Notes 01/30/2025 Sore throat (ICD-10 - J02.9) Patient is welcomed to the practice. They are coming from [place] [facility]. Last complete physical exam with [...] biopsy in 2020. Will request records from [facility]. Patient encouraged to call [facility] for appointment. She has 2 COVID shots, declines influenza, she is unsure when her last Tdap was, will request records today. #Migraines: Patient has been struggling with migraines for most of her life. She follows with neurology in [place], most recently this year, will request records. She is taking topiramate 100 mg twice daily, sumatriptan 50 mg as needed, and recently started Emgality and has had 2 injections. She reports since starting Emgality, she has not needed any sumatriptan and states her migraines have been more well-controlled. Continue current regimen. 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 On exam today, no erythema, scaling, discharge, [...] today. #Facial hyperpigmentation: She has been using [id number] products without relief, has been seeing an paper machine backtender. Patient requesting tretinoin today, plan to send [...] Dictation was accomplished with the use of GMG33 voice recognition software, which is prone to medical misidentifications and grammatical errors. This are unintentional and the practitioner does try to identify and correct these, but some could still be present. Please do not hesitate to contact practitioner for clarification. 01/30/2025 Migraine syndrome (ICD-10 - G43.909) Patient is welcomed to the practice. They are coming from [place] [facility]. Last complete physical exam with [...] biopsy in 2020. Will request records from [facility]. Patient encouraged to call [facility] for appointment. She has 2 COVID shots, declines influenza, she is unsure when her last Tdap was, will request records today. #Migraines: Patient has been struggling with migraines for most of her life. She follows with neurology in [place], most recently this year, will request records. She is taking topiramate 100 mg twice daily, sumatriptan 50 mg as needed, and recently started Emgality and has had 2 injections. She reports since starting Emgality, she has not needed any sumatriptan and states her migraines have been more well-controlled. Continue current regimen. 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 On exam today, no erythema, scaling, discharge, [...] today. #Facial hyperpigmentation: She has been using [id number]-[id number]-fqgmwgf products without relief, has been seeing an paper machine backtender. Patient requesting tretinoin today, plan to send [...] Dictation was accomplished with the use of GMG33 voice recognition software, which is prone to [...] recent Pap smear 11/2023. Upcoming appointment with [facility] 04/2025. PHQ-9 is 2, HCP filled out today, scanned in chart. #Migraines: Follows with neurology at [facility], on average every 6 months. She recently started Emgality and reports significant relief in symptoms. Continue Emgality, along with sumatriptan 50 mg as needed, topiramate 100 mg twice daily. #Blepharitis: On exam, no crusting, discoloration, edema. Continue following with [facility]. #Iron deficiency anemia: On labs obtained 01/30/2025, [...] to her insurance, and she will call [place] [facility]. #Facial hyperpigmentation: Continue tretinoin once daily [...] log exercise and discussed fitness Apps like [employer] or [email or web address] which can help keep log off calories [...] Dictation was accomplished with the use of GMG33 voice recognition software, which is prone to [...] recent Pap smear 11/2023. Upcoming appointment with [facility] 04/2025. PHQ-9 is 2, HCP filled out today, scanned in chart. #Migraines: Follows with neurology at [facility], on average every 6 months. She recently started Emgality and reports significant relief in symptoms. Continue Emgality, along with sumatriptan 50 mg as needed, topiramate 100 mg twice daily. #Blepharitis: On exam, no crusting, discoloration, edema. Continue following with [facility]. #Iron deficiency anemia: On labs obtained 01/30/2025, [...] to her insurance, and she will call [facility]. #Facial hyperpigmentation: Continue tretinoin once daily [...] log exercise and discussed fitness Apps like [employer] or [employer] which can help keep log off calories [...] Dictation was accomplished with the use of [email or web address] voice recognition software, which is prone to medical misidentifications and grammatical errors. This are unintentional and the practitioner does try to identify and correct these, but some could still be present. Please do not hesitate to contact practitioner for clarification. 05/05/2025 Annual physical exam (ICD-10 - Z00.00) 05/14/2025 Proteinuria, unspecified type (ICD-10 - R80.9) María is a 34-year-old female with past medical history of migraines, blepharitis of bilateral eyes, vitamin D deficiency, iron deficiency, proteinuria and hematuria who presents for routine follow-up. #Migraines: Follows with neurology at [facility], on average every 6 months. She recently started Emgality and reports significant relief in symptoms. Continue Emgality, along with sumatriptan 50 mg as needed, topiramate 100 mg twice daily. #Blepharitis: On exam, no crusting, discoloration, edema. Continue following with [facility]. #Iron deficiency anemia: Improved with supplementation. #Vitamin D deficiency: Improved with supplementation. #Proteinuria/hematur ia: Urinalysis 01/30/2025 shows cloudy urine, 3+ occult blood, 2+ protein, 10-20 RBC, 10-20 hyaline casts. Repeat urinalysis shows 3+ occult blood, 2+ protein, over 60 RBCs. Protein to creatinine ratio was 398, protein total 53. NIALL negative. CMP showed creatinine and BUN within normal limits. C3, C4, antistreptolysin O antibody, antiglomerular basement antibody, anti-DNA Ds antibody negative. Patient denies any urinary symptoms. Bilateral kidney and bladder ultrasound unremarkable. Continue following with [facility]. Upcoming appointment 08/2025. Per patient, nephrology suspects IgA nephropathy with plans for possible biopsy if hematuria and proteinuria are ongoing. F/u in February 2026 for CPE. All questions have been answered to patient's satisfaction. Patient verbalized understanding of diagnosis and treatments explained. Advised to call sooner prior to next visit it any questions/concerns arise. Case discussed with collaborating physician Roz Milner who reviewed the assessment and plan. Chart, medications, labs, vital signs reviewed. Dictation was accomplished with the use of [email or web address] voice recognition software, which is prone to medical misidentifications and grammatical errors. This are unintentional and the practitioner does try to identify and correct these, but some could still be present. Please do not hesitate to contact practitioner for clarification. 05/14/2025 Migraine syndrome (ICD-10 - G43.909) María is a 34-year-old female with past medical history of migraines, blepharitis of bilateral eyes, vitamin D deficiency, iron deficiency, proteinuria and hematuria who presents for routine follow-up. #Migraines: Follows with neurology at [facility], on average every 6 months. She recently started Emgality and reports significant relief in symptoms. Continue Emgality, along with sumatriptan 50 mg as needed, topiramate 100 mg twice daily. #Blepharitis: On exam, no crusting, discoloration, edema. Continue following with [facility]. #Iron deficiency anemia: Improved with supplementation. #Vitamin D deficiency: Improved with supplementation. #Proteinuria/hematur ia: Urinalysis 01/30/2025 shows cloudy urine, 3+ occult blood, 2+ protein, 10-20 RBC, 10-20 hyaline casts. Repeat urinalysis shows 3+ occult blood, 2+ protein, over 60 RBCs. Protein to creatinine ratio was 398, protein total 53. NIALL negative. CMP showed creatinine and BUN within normal limits. C3, C4, antistreptolysin O antibody, antiglomerular basement antibody, anti-DNA Ds antibody negative. Patient denies any urinary symptoms. Bilateral kidney and bladder ultrasound unremarkable. Continue following with [facility]. Upcoming appointment 08/2025. Per patient, nephrology suspects IgA nephropathy with plans for possible biopsy if hematuria and proteinuria are ongoing. F/u in February 2026 for CPE. All questions have been answered to patient's satisfaction. Patient verbalized understanding of diagnosis and treatments explained. Advised to call sooner prior to next visit it any questions/concerns arise. Case discussed with collaborating physician Roz Milner who reviewed the assessment and plan. Chart, medications, labs, vital signs reviewed. Dictation was accomplished with the use of [email or web address] voice recognition software, which is prone to medical misidentifications and grammatical errors. This are unintentional and the practitioner does try to identify and correct these, but some could still be present. Please do not hesitate to contact practitioner for clarification. 06/23/2025 Hordeolum internum of right lower eyelid (ICD-10 - H00.022) María is a 34-year-old female who presents for evaluation hordeolum of the lateral aspect of the right lower eyelid. Reports the lesion first appeared 2 days ago and has since enlarged and become painful. On presentation patient is vitally stable. Physical exam reveals a round area of erythema/edema on the internal aspect of the right lateral lower eyelid. PERRL, EOMI. patient historically treated with polymyxin B-Trmethoprim eyedrops with symptom improvement. Rx provided, reviewed proper use/SE. Patient encouraged to continue warm compresses. Discussed importance of using clean washcloths to avoid infection of the left eye. Additionally discussed importance of frequently washing pillowcases, make-up brushes, etc. Patient understands to contact the office should symptoms not improve despite treatment. Follow-up with ophthalmology as scheduled. All questions answered to the patients satisfaction. Patient demonstrates understanding of diagnosis and treatments discussed. Follow-up at next scheduled appointment, sooner should any questions/concerns arise. Case discussed with collaborating physician Sabrina Milner who has reviewed the assessment/plan. Chart, medications, labs, and vital signs reviewed. Dictation completed with the use of [email or web address] voice recognition software, prone to medical misidentifications and grammatical errors. All errors are unintentional. Although the practitioner does try to identify and correct errors, some may be present. Please do not hesitate to contact the practitioner for clarification. 05/14/2025 Iron deficiency anemia secondary to inadequate dietary iron intake (ICD-10 - D50.8) María is a 34-year-old female with past medical history of migraines, blepharitis of bilateral eyes, vitamin D deficiency, iron deficiency, proteinuria and hematuria who presents for routine follow-up. #Migraines: Follows with neurology at [facility], on average every 6 months. She recently started Emgality and reports significant relief in symptoms. Continue Emgality, along with sumatriptan 50 mg as needed, topiramate 100 mg twice daily. #Blepharitis: On exam, no crusting, discoloration, edema. Continue following with [facility]. #Iron deficiency anemia: Improved with supplementation. #Vitamin D deficiency: Improved with supplementation. #Proteinuria/hematur ia: Urinalysis 01/30/2025 shows cloudy urine, 3+ occult blood, 2+ protein, 10-20 RBC, 10-20 hyaline casts. Repeat urinalysis shows 3+ occult blood, 2+ protein, over 60 RBCs. Protein to creatinine ratio was 398, protein total 53. NIALL negative. CMP showed creatinine and BUN within normal limits. C3, C4, antistreptolysin O antibody, antiglomerular basement antibody, anti-DNA Ds antibody negative. Patient denies any urinary symptoms. Bilateral kidney and bladder ultrasound unremarkable. Continue following with [facility]. Upcoming appointment 08/2025. Per patient, nephrology suspects IgA nephropathy with plans for possible biopsy if hematuria and proteinuria are ongoing. F/u in February 2026 for CPE. All questions have been answered to patient's satisfaction. Patient verbalized understanding of diagnosis and treatments explained. Advised to call sooner prior to next visit it any questions/concerns arise. Case discussed with collaborating physician Roz Milner who reviewed the assessment and plan. Chart, medications, labs, vital signs reviewed. Dictation was accomplished with the use of [email or web address] voice recognition software, which is prone to medical misidentifications and grammatical errors. This are unintentional and the practitioner does try to identify and correct these, but some could still be present. Please do not hesitate to contact practitioner for clarification. 05/05/2025 Iron deficiency anemia, unspecified (ICD-10 - D50.9) 02/13/2025 Proteinuria, unspecified type (ICD-10 - R80.9) María is a 34-year-old female with past medical history of migraines, blepharitis of bilateral eyes who presents for physical exam. #Health maintenance: Declines flu shot, COVID-vaccine 2020, Tdap 2022. Most recent Pap smear 11/2023. Upcoming appointment with [facility] 04/2025. PHQ-9 is 2, HCP filled out today, scanned in chart. #Migraines: Follows with neurology at [facility], on average every 6 months. She recently started Emgality and reports significant relief in symptoms. Continue Emgality, along with sumatriptan 50 mg as needed, topiramate 100 mg twice daily. #Blepharitis: On exam, no crusting, discoloration, edema. Continue following with [facility]. #Iron deficiency anemia: On labs obtained 01/30/2025, [...] to her insurance, and she will call [facility]. #Facial hyperpigmentation: Continue tretinoin once daily [...] log exercise and discussed fitness Apps like [employer] or [employer] which can help keep log off calories [...] Dictation was accomplished with the use of [email or web address] voice recognition software, which is prone to [...] to the practice. They are coming from [facility]. Last complete physical exam with [...] biopsy in 2020. Will request records from [facility]. Patient encouraged to call [facility] for appointment. She has 2 COVID shots, declines influenza, she is unsure when her last Tdap was, will request records today. #Migraines: Patient has been struggling with migraines for most of her life. She follows with neurology in [place], most recently this year, will request records. She is taking topiramate 100 mg twice daily, sumatriptan 50 mg as needed, and recently started Emgality and has had 2 injections. She reports since starting Emgality, she has not needed any sumatriptan and states her migraines have been more well-controlled. Continue current regimen. 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 On exam today, no erythema, scaling, discharge, [...] today. #Facial hyperpigmentation: She has been using [id number] products without relief, has been seeing an paper machine backtender. Patient requesting tretinoin today, plan to send [...] Dictation was accomplished with the use of [email or web address] voice recognition software, which is prone to medical misidentifications and grammatical errors. This are unintentional and the practitioner does try to identify and correct these, but some could still be present. Please do not hesitate to contact practitioner for clarification. 01/30/2025 Hyperpigmentation (ICD-10 - L81.9) Patient is welcomed to the practice. They are coming from [facility]. Last complete physical exam with [...] biopsy in 2020. Will request records from [facility]. Patient encouraged to call [facility] for appointment. She has 2 COVID shots, declines influenza, she is unsure when her last Tdap was, will request records today. #Migraines: Patient has been struggling with migraines for most of her life. She follows with neurology in [place], most recently this year, will request records. She is taking topiramate 100 mg twice daily, sumatriptan 50 mg as needed, and recently started Emgality and has had 2 injections. She reports since starting Emgality, she has not needed any sumatriptan and states her migraines have been more well-controlled. Continue current regimen. 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 On exam today, no erythema, scaling, discharge, [...] today. #Facial hyperpigmentation: She has been using [id number] products without relief, has been seeing an paper machine backtender. Patient requesting tretinoin today, plan to send [...] Dictation was accomplished with the use of [email or web address] voice recognition software, which is prone to [...] recent Pap smear 11/2023. Upcoming appointment with [facility] 04/2025. PHQ-9 is 2, HCP filled out today, scanned in chart. #Migraines: Follows with neurology at [facility], on average every 6 months. She recently started Emgality and reports significant relief in symptoms. Continue Emgality, along with sumatriptan 50 mg as needed, topiramate 100 mg twice daily. #Blepharitis: On exam, no crusting, discoloration, edema. Continue following with [facility]. #Iron deficiency anemia: On labs [...] to her insurance, and she will call [facility]. #Facial hyperpigmentation: Continue tretinoin once daily [...] log exercise and discussed fitness Apps like [employer] or [employer] which can help keep log off calories [...] Dictation was accomplished with the use of [email or web address] voice recognition software, which is prone to medical misidentifications and grammatical errors. This are unintentional and the practitioner does try to identify and correct these, but some could still be present. Please do not hesitate to contact practitioner for clarification. 05/14/2025 Unspecified blepharitis right eye, upper and lower eyelids (ICD-10 - H01.00A) María is a 34-year-old female with past medical history of migraines, blepharitis of bilateral eyes, vitamin D deficiency, iron deficiency, proteinuria and hematuria who presents for routine follow-up. #Migraines: Follows with neurology at [facility], on average every 6 months. She recently started Emgality and reports significant relief in symptoms. Continue Emgality, along with sumatriptan 50 mg as needed, topiramate 100 mg twice daily. #Blepharitis: On exam, no crusting, discoloration, edema. Continue following with [facility]. #Iron deficiency anemia: Improved with supplementation. #Vitamin D deficiency: Improved with supplementation. #Proteinuria/hematur ia: Urinalysis 01/30/2025 shows cloudy urine, 3+ occult blood, 2+ protein, 10-20 RBC, 10-20 hyaline casts. Repeat urinalysis shows 3+ occult blood, 2+ protein, over 60 RBCs. Protein to creatinine ratio was 398, protein total 53. NIALL negative. CMP showed creatinine and BUN within normal limits. C3, C4, antistreptolysin O antibody, antiglomerular basement antibody, anti-DNA Ds antibody negative. Patient denies any urinary symptoms. Bilateral kidney and bladder ultrasound unremarkable. Continue following with [facility]. Upcoming appointment 08/2025. Per patient, nephrology suspects IgA nephropathy with plans for possible biopsy if hematuria and proteinuria are ongoing. F/u in February 2026 for CPE. All questions have been answered to patient's satisfaction. Patient verbalized understanding of diagnosis and treatments explained. Advised to call sooner prior to next visit it any questions/concerns arise. Case discussed with collaborating physician Roz Milner who reviewed the assessment and plan. Chart, medications, labs, vital signs reviewed. Dictation was accomplished with the use of [email or web address] voice recognition software, which is prone to medical misidentifications and grammatical errors. This are unintentional and the practitioner does try to identify and correct these, but some could still be present. Please do not hesitate to contact practitioner for clarification. 05/14/2025 Unspecified blepharitis left eye, upper and lower eyelids (ICD-10 - H01.00B) María is a 34-year-old female with past medical history of migraines, blepharitis of bilateral eyes, vitamin D deficiency, iron deficiency, proteinuria and hematuria who presents for routine follow-up. #Migraines: Follows with neurology at [facility], on average every 6 months. She recently started Emgality and reports significant relief in symptoms. Continue Emgality, along with sumatriptan 50 mg as needed, topiramate 100 mg twice daily. #Blepharitis: On exam, no crusting, discoloration, edema. Continue following with [facility]. #Iron deficiency anemia: Improved with supplementation. #Vitamin D deficiency: Improved with supplementation. #Proteinuria/hematur ia: Urinalysis 01/30/2025 shows cloudy urine, 3+ occult blood, 2+ protein, 10-20 RBC, 10-20 hyaline casts. Repeat urinalysis shows 3+ occult blood, 2+ protein, over 60 RBCs. Protein to creatinine ratio was 398, protein total 53. NIALL negative. CMP showed creatinine and BUN within normal limits. C3, C4, antistreptolysin O antibody, antiglomerular basement antibody, anti-DNA Ds antibody negative. Patient denies any urinary symptoms. Bilateral kidney and bladder ultrasound unremarkable. Continue following with [facility]. Upcoming appointment 08/2025. Per patient, nephrology suspects IgA nephropathy with plans for possible biopsy if hematuria and proteinuria are ongoing. F/u in February 2026 for CPE. All questions have been answered to patient's satisfaction. Patient verbalized understanding of diagnosis and treatments explained. Advised to call sooner prior to next visit it any questions/concerns arise. Case discussed with collaborating physician Roz Milner who reviewed the assessment and plan. Chart, medications, labs, vital signs reviewed. Dictation was accomplished with the use of [email or web address] voice recognition software, which is prone to [...] recent Pap smear 11/2023. Upcoming appointment with [facility] 04/2025. PHQ-9 is 2, HCP filled out today, scanned in chart. #Migraines: Follows with neurology at [facility], on average every 6 months. She recently started Emgality and reports significant relief in symptoms. Continue Emgality, along with sumatriptan 50 mg as needed, topiramate 100 mg twice daily. #Blepharitis: On exam, no crusting, discoloration, edema. Continue following with [facility]. #Iron deficiency anemia: On labs [...] to her insurance, and she will call [facility]. #Facial hyperpigmentation: Continue tretinoin once daily [...] log exercise and discussed fitness Apps like [employer] or [email or web address] which can help keep log off calories [...] Dictation was accomplished with the use of [email or web address] voice recognition software, which is prone to medical misidentifications and grammatical errors. This are unintentional and the practitioner does try to identify and correct these, but some could still be present. Please do not hesitate to contact practitioner for clarification. 01/30/2025 Unprotected sex (ICD-10 - Z72.51) Patient is welcomed to the practice. They are coming from [facility]. Last complete physical exam with [...] biopsy in 2020. Will request records from [facility]. Patient encouraged to call [facility] for appointment. She has 2 COVID shots, declines influenza, she is unsure when her last Tdap was, will request records today. #Migraines: Patient has been struggling with migraines for most of her life. She follows with neurology in [place], most recently this year, will request records. She is taking topiramate 100 mg twice daily, sumatriptan 50 mg as needed, and recently started Emgality and has had 2 injections. She reports since starting Emgality, she has not needed any sumatriptan and states her migraines have been more well-controlled. Continue current regimen. 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 On exam today, no erythema, scaling, discharge, [...] today. #Facial hyperpigmentation: She has been using [id number] products without relief, has been seeing an paper machine backtender. Patient requesting tretinoin today, plan to send [...] Dictation was accomplished with the use of [email or web address] voice recognition software, which is prone to medical misidentifications and grammatical errors. This are unintentional and the practitioner does try to identify and correct these, but some could still be present. Please do not hesitate to contact practitioner for clarification. 05/14/2025 Avitaminosis D (ICD-10 - E55.9) María is a 34-year-old female with past medical history of migraines, blepharitis of bilateral eyes, vitamin D deficiency, iron deficiency, proteinuria and hematuria who presents for routine follow-up. #Migraines: Follows with neurology at [facility], on average every 6 months. She recently started Emgality and reports significant relief in symptoms. Continue Emgality, along with sumatriptan 50 mg as needed, topiramate 100 mg twice daily. #Blepharitis: On exam, no crusting, discoloration, edema. Continue following with [facility]. #Iron deficiency anemia: Improved with supplementation. #Vitamin D deficiency: Improved with supplementation. #Proteinuria/hematur ia: Urinalysis 01/30/2025 shows cloudy urine, 3+ occult blood, 2+ protein, 10-20 RBC, 10-20 hyaline casts. Repeat urinalysis shows 3+ occult blood, 2+ protein, over 60 RBCs. Protein to creatinine ratio was 398, protein total 53. NIALL negative. CMP showed creatinine and BUN within normal limits. C3, C4, antistreptolysin O antibody, antiglomerular basement antibody, anti-DNA Ds antibody negative. Patient denies any urinary symptoms. Bilateral kidney and bladder ultrasound unremarkable. Continue following with [facility]. Upcoming appointment 08/2025. Per patient, nephrology suspects IgA nephropathy with plans for possible biopsy if hematuria and proteinuria are ongoing. F/u in February 2026 for CPE. All questions have been answered to patient's satisfaction. Patient verbalized understanding of diagnosis and treatments explained. Advised to call sooner prior to next visit it any questions/concerns arise. Case discussed with collaborating physician Roz Milner who reviewed the assessment and plan. Chart, medications, labs, vital signs reviewed. Dictation was accomplished with the use of [email or web address] voice recognition software, which is prone to medical misidentifications and grammatical errors. This are unintentional and the practitioner does try to identify and correct these, but some could still be present. Please do not hesitate to contact practitioner for clarification. 01/30/2025 Abnormal vaginal Pap smear (ICD-10 - R87.629) Patient is welcomed to the practice. They are coming from [facility]. Last complete physical exam with [...] biopsy in 2020. Will request records from [facility]. Patient encouraged to call [facility] for appointment. She has 2 COVID shots, declines influenza, she is unsure when her last Tdap was, will request records today. #Migraines: Patient has been struggling with migraines for most of her life. She follows with neurology in [place], most recently this year, will request records. She is taking topiramate 100 mg twice daily, sumatriptan 50 mg as needed, and recently started Emgality and has had 2 injections. She reports since starting Emgality, she has not needed any sumatriptan and states her migraines have been more well-controlled. Continue current regimen. 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 On exam today, no erythema, scaling, discharge, [...] today. #Facial hyperpigmentation: She has been using [id number] products without relief, has been seeing an paper machine backtender. Patient requesting tretinoin today, plan to send [...] Dictation was accomplished with the use of [email or web address] voice recognition software, which is prone to [...] recent Pap smear 11/2023. Upcoming appointment with [facility] 04/2025. PHQ-9 is 2, HCP filled out today, scanned in chart. #Migraines: Follows with neurology at [facility], on average every 6 months. She recently started Emgality and reports significant relief in symptoms. Continue Emgality, along with sumatriptan 50 mg as needed, topiramate 100 mg twice daily. #Blepharitis: On exam, no crusting, discoloration, edema. Continue following with [facility]. #Iron deficiency anemia: On labs [...] to her insurance, and she will call [facility] [facility]. #Facial hyperpigmentation: Continue tretinoin once daily [...] log exercise and discussed fitness Apps like [employer] or [employer] which can help keep log off calories [...] Dictation was accomplished with the use of [email or web address] voice recognition software, which is prone to [...] recent Pap smear 11/2023. Upcoming appointment with [facility] 04/2025. PHQ-9 is 2, HCP filled out today, scanned in chart. #Migraines: Follows with neurology at [facility], on average every 6 months. She recently started Emgality and reports significant relief in symptoms. Continue Emgality, along with sumatriptan 50 mg as needed, topiramate 100 mg twice daily. #Blepharitis: On exam, no crusting, discoloration, edema. Continue following with [facility]. #Iron deficiency anemia: On labs [...] to her insurance, and she will call [facility]. #Facial hyperpigmentation: Continue tretinoin once daily [...] log exercise and discussed fitness Apps like [employer] or [employer] which can help keep log off calories [...] Dictation was accomplished with the use of [email or web address] voice recognition software, which is prone to medical misidentifications and grammatical errors. This are unintentional and the practitioner does try to identify and correct these, but some could still be present. Please do not hesitate to contact practitioner for clarification. 01/30/2025 Encounter for examination of blood pressure without abnormal findings (ICD-10 - Z01.30) Patient is welcomed to the practice. They are coming from [facility]. Last complete physical exam with [...] biopsy in 2020. Will request records from [facility]. Patient encouraged to call [facility] for appointment. She has 2 COVID shots, declines influenza, she is unsure when her last Tdap was, will request records today. #Migraines: Patient has been struggling with migraines for most of her life. She follows with neurology in [place], most recently this year, will request records. She is taking topiramate 100 mg twice daily, sumatriptan 50 mg as needed, and recently started Emgality and has had 2 injections. She reports since starting Emgality, she has not needed any sumatriptan and states her migraines have been more well-controlled. Continue current regimen. 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 On exam today, no erythema, scaling, discharge, [...] today. #Facial hyperpigmentation: She has been using viih-vsm-uvkgwro products without relief, has been seeing an paper machine backtender. Patient requesting tretinoin today, plan to send [...] Dictation was accomplished with the use of [email or web address] voice recognition software, which is prone to medical misidentifications and grammatical errors. This are unintentional and the practitioner does try to identify and correct these, but some could still be present. Please do not hesitate to contact practitioner for clarification. 05/14/2025 Encounter for examination of blood pressure without abnormal findings (ICD-10 - Z01.30) María is a 34-year-old female with past medical history of migraines, blepharitis of bilateral eyes, vitamin D deficiency, iron deficiency, proteinuria and hematuria who presents for routine follow-up. #Migraines: Follows with neurology at [facility], on average every 6 months. She recently started Emgality and reports significant relief in symptoms. Continue Emgality, along with sumatriptan 50 mg as needed, topiramate 100 mg twice daily. #Blepharitis: On exam, no crusting, discoloration, edema. Continue following with [facility]. #Iron deficiency anemia: Improved with supplementation. #Vitamin D deficiency: Improved with supplementation. #Proteinuria/hematur ia: Urinalysis 01/30/2025 shows cloudy urine, 3+ occult blood, 2+ protein, 10-20 RBC, 10-20 hyaline casts. Repeat urinalysis shows 3+ occult blood, 2+ protein, over 60 RBCs. Protein to creatinine ratio was 398, protein total 53. NIALL negative. CMP showed creatinine and BUN within normal limits. C3, C4, antistreptolysin O antibody, antiglomerular basement antibody, anti-DNA Ds antibody negative. Patient denies any urinary symptoms. Bilateral kidney and bladder ultrasound unremarkable. Continue following with [facility]. Upcoming appointment 08/2025. Per patient, nephrology suspects IgA nephropathy with plans for possible biopsy if hematuria and proteinuria are ongoing. F/u in February 2026 for CPE. All questions have been answered to patient's satisfaction. Patient verbalized understanding of diagnosis and treatments explained. Advised to call sooner prior to next visit it any questions/concerns arise. Case discussed with collaborating physician Roz Milner who reviewed the assessment and plan. Chart, medications, labs, vital signs reviewed. Dictation was accomplished with the use of [email or web address] voice recognition software, which is prone to [...] recent Pap smear 11/2023. Upcoming appointment with [facility] 04/2025. PHQ-9 is 2, HCP filled out today, scanned in chart. #Migraines: Follows with neurology at [facility], on average every 6 months. She recently started Emgality and reports significant relief in symptoms. Continue Emgality, along with sumatriptan 50 mg as needed, topiramate 100 mg twice daily. #Blepharitis: On exam, no crusting, discoloration, edema. Continue following with [facility]. #Iron deficiency anemia: On labs [...] to her insurance, and she will call [facility]. #Facial hyperpigmentation: Continue tretinoin once daily [...] log exercise and discussed fitness Apps like [employer] or [employer] which can help keep log off calories [...] Dictation was accomplished with the use of [email or web address] voice recognition software, which is prone to [...] recent Pap smear 11/2023. Upcoming appointment with [facility] 04/2025. PHQ-9 is 2, HCP filled out today, scanned in chart. #Migraines: Follows with neurology at [facility], on average every 6 months. She recently started Emgality and reports significant relief in symptoms. Continue Emgality, along with sumatriptan 50 mg as needed, topiramate 100 mg twice daily. #Blepharitis: On exam, no crusting, discoloration, edema. Continue following with [facility]. #Iron deficiency anemia: On labs [...] to her insurance, and she will call [facility]. #Facial hyperpigmentation: Continue tretinoin once daily [...] log exercise and discussed fitness Apps like [employer] or [employer] which can help keep log off calories [...] Dictation was accomplished with the use of [employer]33 voice recognition software, which is prone to medical misidentifications and grammatical errors. This are unintentional and the practitioner does try to identify and correct these, but some could still be present. Please do not hesitate to contact practitioner for clarification. 01/30/2025 Unprotected sexual intercourse (ICD-10 - Z72.51) Patient is welcomed to the practice. They are coming from [facility]. Last complete physical exam with labs [...] biopsy in 2020. Will request records from [facility]. Patient encouraged to call [facility] for appointment. She has 2 COVID shots, declines influenza, she is unsure when her last Tdap was, will request records today. #Migraines: Patient has been struggling with migraines for most of her life. She follows with neurology in [place], most recently this year, will request records. She is taking topiramate 100 mg twice daily, sumatriptan 50 mg as needed, and recently started Emgality and has had 2 injections. She reports since starting Emgality, she has not needed any sumatriptan and states her migraines have been more well-controlled. Continue current regimen. 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 On exam today, no erythema, scaling, discharge, [...] today. #Facial hyperpigmentation: She has been using axaa-jvk-bqrvntl products without relief, has been seeing an paper machine backtender. Patient requesting tretinoin today, plan to send [...] Dictation was accomplished with the use of [email or web address] voice recognition software, which is prone to [...] recent Pap smear 11/2023. Upcoming appointment with [facility] 04/2025. PHQ-9 is 2, HCP filled out today, scanned in chart. #Migraines: Follows with neurology at [facility], on average every 6 months. She recently started Emgality and reports significant relief in symptoms. Continue Emgality, along with sumatriptan 50 mg as needed, topiramate 100 mg twice daily. #Blepharitis: On exam, no crusting, discoloration, edema. Continue following with [facility]. #Iron deficiency anemia: On labs obtained 01/30/2025, [...] to her insurance, and she will call [facility]. #Facial hyperpigmentation: Continue tretinoin once daily [...] log exercise and discussed fitness Apps like [employer] or [employer] which can help keep log [...] Dictation was accomplished with the use of [email or web address] voice recognition software, which is prone to medical misidentifications and grammatical errors. This are unintentional and the practitioner does try to identify and correct these, but some could still be present. Please do not hesitate to contact practitioner for clarification. Plan Of Treatment Pending Test Test Name Order Date Ultrasound : Kidneys, bilateral 02/14/20 Test, Urine 02/05/2025 Antistreptolysin O Ab 02/13/2025 Antiglomerular BM Ab, Qn 02/13/2025 NILAL w/Reflex 02/05/2025 Urinalysis 02/02/2025 CHLAMYDIA GC AMP PROBE, URINE 01/30/2025 FERRITIN 02/02/2025 IRON & TIBC 02/02/2025 , BLOOD, QUANTITATIVE Protein Creatinine Ratio Random Urine VITAMIN B12 05/14/2025 LIPID PANEL, STANDARD 05/14/2025 IRON, TIBC AND FERRITIN PANEL 05/05/2025 COMPREHENSIVE METABOLIC PANEL 05/14/2025 CBC (INCLUDES DIFF/PLT) 05/14/2025 CBC (INCLUDES DIFF/PLT) 05/05/2025 URINALYSIS, COMPLETE 05/14/2025 HEMOGLOBIN A1c 05/14/2025 TSH 05/14/2025 VITAMIN D,25-OH,TOTAL,IA 05/14/2025 HIV 1 AND 2 SCREEN 01/30/2025 FOLATE 02/02/2025 PPC Strep Test 01/30/2025 C4 COMPLEMENT 02/13/2025 C3 COMPLEMENT 02/13/2025 ANTI-DNA ANTIBODY, DOUBLE-STRANDED 02/13 Next Appt Details Provider Name:Malena werner, 02/18/2026 10:30:00 AM, [address] [facility], [facility] [address], [place], [address], Insurance Providers Payer Name Payer Address Payer Phone Subscriber Number Group Number Insured Name Patient Relationship to Insured Coverage Start Date Coverage End Date [facility] [address] [place] [address] [id number] María William Self - patient is the insured Medical (General) History Medical History History ICD Code Migraine syndrome G43.909 Blepharitis of both upper and lower eyel id of right eye, unspecified type H01.00A Surgical History Surgery Date(Month/Year) colonoscopy 17 y/o laparoscopy 16 y/o
== END 2025-07-08 09:47 | disposition home or self-care (01) ==
LOC: HO.HSM 08:45
PROVIDERS: Visit Provider Psychiatry & Neurology Neurology
DX: G43.909 Migraine, unspecified, not intractable, without status migrainosus (principal)
CPT/HCPCS: 99214